=== PATIENT | female | born 1960 | race Caucasian/White ===

== ENCOUNTER 2019-12-07 08:45 | Outpatient (RCR) | payer MEDICAID, SELFPAY ==
[2019-11-16 11:02] VITALS: BP 140/86; PULSE 110; RESP 18; TEMP 36.8; BMI 25.6
--- NOTE | 2019-11-16 15:11 | HP.PCM_ITS ---
(1) Pressure ulcer of right ankle, stage 4 Status: Chronic Current Visit: Yes Code(s): L89.514 - Pressure ulcer of right ankle, stage 4 (2) Pressure ulcer of left ankle, stage 2 Status: Chronic Current Visit: Yes Code(s): L89.522 - Pressure ulcer of left ankle, stage 2 (3) Mental disability Status: Chronic Current Visit: No Code(s): F79 - Unspecified intellectual disabilities (4) Behavioral disorder Status: Chronic Current Visit: No (5) Hypertension Status: Chronic Current Visit: No Code(s): I10 - Essential (primary) hypertension (6) Eczema Status: Chronic Current Visit: No Code(s): L30.9 - Dermatitis, unspecified History of Present Illness Date of Service: 11/16/19 Chief Complaint: pressure ulcers of both ankles History of Wound: Patient is a pleasant 59-year-old female who [facility] for initial evaluation of bilateral pressure ulcers to ankles. She presents today with a staff member, Calvin, from [facility]. Patient has a mental disability, and is unable to provide a self history. Per staff member, ankle ulcers have been present for approximately 1 month. She believes they may have occurred while patient was admitted to a mental hospital for behavioral issues. During behavioral spells patient frequently crosses ankles and rocks back and forth. She is also a frequent roller picker, and often pulls off her own toenails and fingernails. Patient's other PMH includes hypertension, eczema, and a history of previous pressure ulcers to ankles. Staff at [facility] have been applying Silvadene to patient's left ankle ulcer, and an alginate to patient's right ankle ulcer. These dressings are changed daily. They are typically covered with gauze or Band-Aid. The patient/staff denies any fever, chills, nausea, vomiting, or diarrhea. Denies any signs of infection, including increasing pain, redness, swelling, or purulent/foul-smelling drainage from affected area. Past Medical History Past Medical History: Chronic Problems Pressure ulcer of right ankle, stage 4 (Chronic) Pressure ulcer of left ankle, stage 2 (Chronic) Mental disability (Chronic) Behavioral disorder (Chronic) Hypertension (Chronic) Eczema (Chronic) Allergies/Adverse Reactions: Allergies No Known Allergies Allergy (Verified 11/16/19 11:11) Home Medications: Ambulatory Orders Medication Instructions Recorded Atenolol 25 mg PO DAILY 11/16/19 Cetirizine HCl [All Day Allergy] 10 mg PO DAILY 11/16/19 Clozapine [Clozapine Odt] 150 mg PO BID 11/16/19 Famotidine [Pepcid] 40 mg PO DAILY 11/16/19 Lactulose [Constulose] 60 ml PO BID 11/16/19 Levothyroxine [Synthroid] 75 mcg PO DAILY 11/16/19 Magnesium Citrate [Citrate of 296 ml PO QWEEK 11/16/19 Magnesia] Sennosides/Docusate Sodium [Senna 1 ea PO BID 11/16/19 Plus 8.6-50 mg Softgel] Smoking Status: Never smoker Review of Systems Constitutional: Denies: Chills, Fever, Weight Change Eyes: Denies: Pain, Vision Change HEENT: Denies: Difficulty Hearing, Difficulty Swallowing, Sinus Congestion Cardiovascular: Denies: Chest Pain, Palpitations Respiratory: Denies: Cough, Shortness of Breath, Wheezing Gastrointestinal: Denies: Abdominal Pain, Diarrhea, Nausea, Vomiting Genitourinary: Denies: Dysuria, Hematuria Musculoskeletal: Denies: Joint Pain, Joint stiffness, Joint swelling, Joint Tenderness, Leg Pain Skin: Reports: Wounds - Bilateral ankle ulcers, - - History of eczema Psychiatric: Reports: - - Mental disability, behavioral disorders Endocrine: Denies: Heat/ Cold Intolerance, Polydipsia, Polyuria Hematologic/ Lymphatic: Denies: Easy Bruising, Easy Bleeding - Physical Exam Vital Signs Temp Pulse Resp BP 98.2 F 110 H 18 140/86 H 11/16/19 11:02 11/16/19 11:02 11/16/19 11:02 11/16/19 11:02 General: Alert, Cooperative, No apparent distress, Well nourished HEENT: Atraumatic, EOMI, Normocephalic Oral: Moist Mucosa Neck: Supple, No JVD, Trachea Midline Lungs: Clear to auscultation, Normal air movement, No rhonchi, No wheeze, No rales Cardiovascular: Regular rate, Regular Rhythm Abdomen: Bowel Sounds Present, Soft, Non Tender Extremities: No clubbing, No cyanosis, Capillary Refill Less than 3 Seconds, Edema - Mild periwound edema of right ankle. No edema of left ankle or lower ex tremity., Peripheral Pulses Normal Skin: Ulcer/ Wound - Stage IV pressure ulcer to right lateral ankle, with mild surrounding erythema and swelling. No purulent/foul-smelling drainage, or warmth to touch. Tendon visible. Does not probe to bone. Stage II pressure ulcer to left ankle, with no surrounding erythema, swelling, or warmth, and no drainage. Does not probe to bone Wound Measurements and Assessment WC - Nurse 1 - General Ulcer Measurement Start: 11/16/19 11:02 Freq: Status: Active Protocol: Activity Type Activity Date Activity User E-Sign Co-Sign Detail Recorded Client Recorded Date Recorded By Document 11/16/19 11:02 RB [id number] 11/16/19 11:10 RB 11/16/19 11:02 Wound Center Nurse 1 [Ulcer Assessment] 2. L lateral ankle -Combined with other wound No -Current Size (cm) - Length 0.3 -Current Size (cm) - Width 0.3 -Current Size (cm) - Depth 0.2 -Total Square Cm 0.09 -Photo Taken Yes -Tunneling No -Undermining/Tunneling No -Circular Undermining No -Exudate Amt Small -Exudate Type Serosanguineous -Wound Margin Thickened & Rolled Under -Granulation Amt Medium (34-66%) -Granulation Quality Dunn -Slough/Fibrin Yes -Necrosis Amt Small (1-33%) -Necrotic Tissue Type Adherent Slough -Structure Exposed N/A -Texture (Abiola-wound Skin Appearance) Assessed, Scarring -Color (Abiola-wound Skin Appearance) Assessed -Temperature (Abiola-wound Skin No Abnormality Appearance) (Pt Warm) -Tenderness on Palpation (Abiola-wound No Skin Appearance) -Ulcer Cleansing Wound Cleanser -Foul Odor after Cleansing No -Anesthetic Used 4% Lidocaine Solution 1. R lateral ankle -Combined with other wound No -Current Size (cm) - Length 0.8 -Current Size (cm) - Width 0.9 -Current Size (cm) - Depth 0.4 -Total Square Cm 0.72 -Photo Taken Yes -Tunneling No -Undermining/Tunneling No -Circular Undermining No -Exudate Amt Small -Exudate Type Serosanguineous -Wound Margin Thickened & Rolled Under -Granulation Amt Medium (34-66%) -Granulation Quality Dunn -Slough/Fibrin Yes -Necrosis Amt Small (1-33%) -Necrotic Tissue Type Adherent Slough -Structure Exposed N/A -Texture (Abiola-wound Skin Appearance) Assessed, Localized Edema -Moisture (Abiola-wound Skin Appearance Assessed ) -Color (Abiola-wound Skin Appearance) Erythema -Temperature (Abiola-wound Skin No Abnormality Appearance) (Pt Warm) -Tenderness on Palpation (Abiola-wound No Skin Appearance) -Ulcer Cleansing Wound Cleanser -Foul Odor after Cleansing No -Anesthetic Used 5% Lidocaine Gel [Edema Assessment] -Lower Limb Edema Present Yes -Right Calf (cm) 34.2 -Right Ankle (cm) 21 -Left Calf (cm) 34 -Left Ankle (cm) 21 WC - Nurse 2 - General Ulcer CM Notes Start: 11/16/19 11:02 Freq: Status: Active Protocol: Activity Type Activity Date Activity User E-Sign Co-Sign Detail Recorded Client Recorded Date Recorded By Document 11/16/19 11:48 DV [id number] 11/16/19 11:59 DV 11/16/19 11:48 Wound Center Nurse 2 [Procedure/Treatment] 2. L lateral ankle -Time 11:54 -Correct Patient Yes -Correct Side, Site, Position Yes -Correct Procedure Yes -Procedure Performed Yes -Type of Procedure Debridement -Clinical Debridement Subcutaneous -Post Debridement Size (cm) - Length 0.3 -Post Debridement Size (cm) - Width 0.4 -Post Debridement Size (cm) - Depth 0.3 -Total Square Cm 0.12 -Wound/Ulcer Outcome Not Healed -Ulcer Cleansing Rinsed/ Irrigated with Saline -Foul Odor after Cleansing No -Bioengineered Tissue No -Bleeding Controlled with Pressure -Offloading No -Treatment Response Procedure Tolerated Well 1. R lateral ankle -Time 11:52 -Correct Patient Yes -Correct Side, Site, Position Yes -Correct Procedure Yes -Procedure Performed Yes -Type of Procedure Debridement -Clinical Debridement Subcutaneous -Post Debridement Size (cm) - Length 1.1 -Post Debridement Size (cm) - Width 1.0 -Post Debridement Size (cm) - Depth 0.6 -Total Square Cm 1.10 -Wound/Ulcer Outcome Not Healed -Ulcer Cleansing Rinsed/ Irrigated with Saline -Foul Odor after Cleansing No -Bioengineered Tissue No -Bleeding Controlled with Pressure -Offloading No -Treatment Response Procedure Tolerated Well [See Physician Procedure note for Specifics] Pain Scale: 0-10 Numeric [Pain] -Is Patient Pain Free? Yes Musculoskeletal: Tenderness - On palpation/manipulation of bilateral ankle ulcers Psych/Mental Status: Normal Affect Debridement Note Post-Debridement Measurements/Treatment WC - Nurse 2 - General Ulcer CM Notes Start: 11/16/19 11:02 Freq: Status: Active Protocol: Activity Type Activity Date Activity User E-Sign Co-Sign Detail Recorded Client Recorded Date Recorded By Document 11/16/19 11:48 DV [id number] 11/16/19 11:59 DV 11/16/19 11:48 Wound Center Nurse 2 2. L lateral ankle -Time 11:54 -Correct Patient Yes -Correct Side, Site, Position Yes -Correct Procedure Yes -Procedure Performed Yes -Type of Procedure Debridement -Clinical Debridement Subcutaneous -Post Debridement Size (cm) - Length 0.3 -Post Debridement Size (cm) - Width 0.4 -Post Debridement Size (cm) - Depth 0.3 -Total Square Cm 0.12 -Wound/Ulcer Outcome Not Healed -Ulcer Cleansing Rinsed/ Irrigated with Saline -Foul Odor after Cleansing No -Bioengineered Tissue No -Bleeding Controlled with Pressure -Offloading No -Treatment Response Procedure Tolerated Well 1. R lateral ankle -Time 11:52 -Correct Patient Yes -Correct Side, Site, Position Yes -Correct Procedure Yes -Procedure Performed Yes -Type of Procedure Debridement -Clinical Debridement Subcutaneous -Post Debridement Size (cm) - Length 1.1 -Post Debridement Size (cm) - Width 1.0 -Post Debridement Size (cm) - Depth 0.6 -Total Square Cm 1.10 -Wound/Ulcer Outcome Not Healed -Ulcer Cleansing Rinsed/ Irrigated with Saline -Foul Odor after Cleansing No -Bioengineered Tissue No -Bleeding Controlled with Pressure -Offloading No -Treatment Response Procedure Tolerated Well Pain Scale: 0-10 Numeric Is Patient Pain Free? Yes Wound debrided: Right lateral ankle Laterality: Right Wound Grade/Stage: Stage IV Type of Debridement: Excisional debridement Anesthesia Used: 5% Lidocaine Gel Depth: in the subcutaneous layer Percentage of wound debrided: 100 Instrument Used: 5mm curette Tissue Removed: Slough and devitalized tissue Severity: Fat Layer Exposed Amount of bleeding with debridement: Mild Bleeding Controlled with: Compression and gauze Patient tolerated procedure well - Additional Wound Wound debrided: Left lateral ankle ulcer Laterality: Left Wound Grade/Stage: Stage II Type of Debridement: Excisional debridement Anesthesia Used: 5% Lidocaine Gel Depth: Down to and including healthy tissue Percentage of wound debrided: 100 Instrument Used: 3mm curette, - - 1 mm curette Tissue Removed: Slough in devitalized tissue Severity: Fat Layer Exposed Amount of bleeding with debridement: Mild Bleeding Controlled with: Compression and gauze Patient tolerated procedure: Patient tolerated procedure well Assessment/Plan Active Problems Pressure ulcer of right ankle, stage 4 (Chronic) Pressure ulcer of left ankle, stage 2 (Chronic) Assessment: Pressure ulcer of right ankle, stage IV. Pressure ulcer of left ankle, stage II Plan: Debridement performed today in clinic. Hydrogel applied to left ankle ulceration. Aquacel Ag applied to right ankle ulceration. At home wound-care instructions: Daily dressing changes. May remove dressings to shower. Avoid picking at wounds, and keep covered at all times, aside from showering. Compression: Patient has Tubigrip's at home, which may be used to keep wound areas covered. However, patient has no significant edema or evident vascular compromise, so more aggressive compression not needed today. Off-loading: Keep feet elevated when seated, at or above waist level. Avoid prolonged dangling of legs, or prolonged standing. Diet: Patient encouraged to increase protein and vitamin C intake while taking caution to avoid high carbohydrate and/or sugar intake. Per staff member, patient's facility has [facility] available. Recommended implementing this as directed for promotion of wound healing. Labs/cultures/imaging: Cultures ordered and collected today from right ankle ulcer. Per staff, lab work is collected monthly at patient's living facility. We requested that these records be faxed to the wound healing center. Vascular studies deferred for the time being. Follow-up: Return to clinic in 1 week for re-evaluation. Return sooner or report to the emergency room should symptoms worsen, or new symptoms arise. Note: [employer] speech recognition mini shifter software was used to create portions of this document. Sound-alike and misspelled words, as well as other mini shifter errors may be contained in the documentation. Code Visit Office Visits / Consults: [id number] OV L4 New [id number]: [id number] Araseli subq tissue 20 sq cm/<
[2019-11-23 08:32] VITALS: BP 136/78; PULSE 108; RESP 16; TEMP 36.4; BMI 25.6
--- NOTE | 2019-11-23 11:37 | PN.PCM_ITS ---
(1) Pressure ulcer of right ankle, stage 4 Status: Chronic Current Visit: Yes Code(s): L89.514 - Pressure ulcer of right ankle, stage 4 (2) Pressure ulcer of left ankle, stage 2 Status: Resolved Current Visit: Yes Code(s): L89.522 - Pressure ulcer of left ankle, stage 2 (3) Mental disability Status: Chronic Current Visit: No Code(s): F79 - Unspecified intellectual disabilities (4) Behavioral disorder Status: Chronic Current Visit: No (5) Hypertension Status: Chronic Current Visit: No Code(s): I10 - Essential (primary) hypertension (6) Eczema Status: Chronic Current Visit: No Code(s): L30.9 - Dermatitis, unspecified Type of Wound Date of Service: 11/23/19 Chief Complaint: pressure ulcers of both ankles History of Wound: Patient is a pleasant 59-year-old female who [facility] for initial evaluation of bilateral pressure ulcers to ankles. She presents today with a staff member, Calvin, from [facility] in [facility]. Patient has a mental disability, and is unable to provide a self history. Per staff member, ankle ulcers have been present for approximately 1 month. She believes they may have occurred while patient was admitted to a mental hospital for behavioral issues. During behavioral spells patient frequently crosses ankles and rocks back and forth. She is also a frequent nut picker, and often pulls off her own toenails and fingernails. Patient's other PMH includes hypertension, eczema, and a history of previous pressure ulcers to ankles. Staff at [facility] have been applying Silvadene to patient's left ankle ulcer, and an alginate to patient's right ankle ulcer. These dressings are changed daily. They are typically covered with gauze or Band-Aid. The patient/staff denies any fever, chills, nausea, vomiting, or diarrhea. Denies any signs of infection, including increasing pain, redness, swelling, or purulent/foul-smelling drainage from affected area. Progress of Wound: Improvement in both pressure ulcers today. Left lateral ankle is healed. Right lateral ankle is improved in appearance and size. Patient staff was unable to acquire hydrogel following last week's visit, so I had directed them to continue Silvadene to left ankle instead. They have been compliant with the use of Silvadene to left lateral ankle and Alba to right lateral ankle. Patient was also started on doxycycline for positive wound culture results indicating MRSA and Corynebacterium striatum. Staff and patient report doing well, no new concerns today. The patient/staff denies any fever, chills, nausea, vomiting, or diarrhea. Denies any signs of infection, including increasing pain, redness, swelling, or drainage from affected area. - Physical Exam Vital Signs Temp Pulse Resp BP 97.6 F L 108 H 16 136/78 H 11/23/19 08:32 11/23/19 08:32 11/23/19 08:32 11/23/19 08:32 General: Alert, Cooperative, No apparent distress HEENT: Atraumatic, EOMI, Normocephalic Oral: Moist Mucosa Neck: Supple, Trachea Midline Lungs: Normal air movement Cardiovascular: Regular rate Extremities: No clubbing, No cyanosis, No edema, Capillary Refill Less than 3 Seconds, Peripheral Pulses Normal Skin: Ulcer/ Wound - Left lateral ankle ulcer healed. Stage IV pressure ulcer to right lateral ankle, with mild abiola-ulcer erythema. Swelling has resolved and right ankle. No purulent/foul-smelling drainage, or warmth to touch. Tendon visible, does not probe to bone. Wound Measurements and Assessment WC - Nurse 1 - General Ulcer Measurement Start: 11/16/19 11:02 Freq: Status: Active Protocol: Activity Type Activity Date Activity User E-Sign Co-Sign Detail Recorded Client Recorded Date Recorded By Document 11/23/19 08:32 [facility] [id number] 11/23/19 08:36 [facility] 11/23/19 08:32 Wound Center Nurse 1 [Ulcer Assessment] 2. L lateral ankle -Combined with other wound No -Current Size (cm) - Length 0.1 -Current Size (cm) - Width 0.1 -Current Size (cm) - Depth 0.1 -Total Square Cm 0.01 -Photo Taken No -Epithelialization Large 67-100% -Tunneling No -Undermining/Tunneling No -Circular Undermining No -Exudate Amt None Present -Texture (Abiola-wound Skin Appearance) Assessed,Rash -Moisture (Abiola-wound Skin Appearance Assessed,Dry/ ) Scaly -Color (Abiola-wound Skin Appearance) Assessed, Erythema -Temperature (Abiola-wound Skin No Abnormality Appearance) (Pt Warm) -Tenderness on Palpation (Abiola-wound No Skin Appearance) -Ulcer Cleansing Rinsed/ Irrigated with Saline -Foul Odor after Cleansing No -Anesthetic Used 5% Lidocaine Gel 1. R lateral ankle -Combined with other wound No -Current Size (cm) - Length 0.6 -Current Size (cm) - Width 0.4 -Current Size (cm) - Depth 0.5 -Total Square Cm 0.24 -Photo Taken No -Epithelialization None Present -Tunneling No -Undermining/Tunneling No -Circular Undermining No -Exudate Amt Small -Exudate Type Serous -Wound Margin Distinct, Outline Attached -Granulation Amt Small (1-33%) -Granulation Quality [place] -Slough/Fibrin Yes -Necrosis Amt Large (67-100%) -Necrotic Tissue Type Adherent Slough -Texture (Abiola-wound Skin Appearance) Assessed,Callus ,Scarring -Moisture (Abiola-wound Skin Appearance Assessed,Dry/ ) Scaly -Color (Abiola-wound Skin Appearance) Assessed -Temperature (Abiola-wound Skin No Abnormality Appearance) (Pt Warm) -Tenderness on Palpation (Abiola-wound Yes Skin Appearance) -Ulcer Cleansing Rinsed/ Irrigated with Saline -Foul Odor after Cleansing No -Anesthetic Used 5% Lidocaine Gel WC - Nurse 2 - General Ulcer CM Notes Start: 11/16/19 11:02 Freq: Status: Active Protocol: Activity Type Activity Date Activity User E-Sign Co-Sign Detail Recorded Client Recorded Date Recorded By Document 11/23/19 08:55 DV [id number] 11/23/19 09:11 DV 11/23/19 08:55 Wound Center Nurse 2 [Procedure/Treatment] 2. L lateral ankle -Time 08:56 -Correct Patient Yes -Correct Side, Site, Position Yes -Correct Procedure No -Procedure Performed No -Post Debridement Size (cm) - Length 0 -Post Debridement Size (cm) - Width 0 -Post Debridement Size (cm) - Depth 0 -Total Square Cm 0 -Wound/Ulcer Outcome Healed- Epithelialized -Bleeding Controlled with Pressure -Offloading No 1. R lateral ankle -Time 08:56 -Correct Patient Yes -Correct Side, Site, Position Yes -Correct Procedure Yes -Procedure Performed Yes -Type of Procedure Debridement -Clinical Debridement Subcutaneous -Post Debridement Size (cm) - Length 1.0 -Post Debridement Size (cm) - Width 0.5 -Post Debridement Size (cm) - Depth 0.5 -Total Square Cm 0.50 -Wound/Ulcer Outcome Not Healed -Ulcer Cleansing Rinsed/ Irrigated with Saline -Foul Odor after Cleansing No -Bioengineered Tissue No -Bleeding Controlled with Pressure -Offloading No -Treatment Response Procedure Tolerated Well [See Physician Procedure note for Specifics] Pain Scale: 0-10 Numeric [Pain] -Is Patient Pain Free? Yes Musculoskeletal: Tenderness - Mild tenderness on manipulation/debridement of right ankle ulcer. Neurological: Unsteady Gait Psych/Mental Status: Normal Affect, Appropriate Debridement Note Post-Debridement Measurements/Treatment WC - Nurse 2 - General Ulcer CM Notes Start: 11/16/19 11:02 Freq: Status: Active Protocol: Activity Type Activity Date Activity User E-Sign Co-Sign Detail Recorded Client Recorded Date Recorded By Document 11/16/19 11:48 DV [id number] 11/16/19 11:59 DV Document 11/23/19 08:55 DV [id number] 11/23/19 09:11 DV 11/16/19 11/23/19 11:48 08:55 Wound Center Nurse 2 2. L lateral ankle -Time 11:54 08:56 -Correct Patient Yes Yes -Correct Side, Site, Position Yes Yes -Correct Procedure Yes No -Procedure Performed Yes No -Type of Procedure Debridement -Clinical Debridement Subcutaneous -Post Debridement Size (cm) - Length 0.3 0 -Post Debridement Size (cm) - Width 0.4 0 -Post Debridement Size (cm) - Depth 0.3 0 -Total Square Cm 0.12 0 -Wound/Ulcer Outcome Not Healed Healed- Epithelialized -Ulcer Cleansing Rinsed/ Irrigated with Saline -Foul Odor after Cleansing No -Bioengineered Tissue No -Bleeding Controlled with Pressure Pressure -Offloading No No -Treatment Response Procedure Tolerated Well 1. R lateral ankle -Time 11:52 08:56 -Correct Patient Yes Yes -Correct Side, Site, Position Yes Yes -Correct Procedure Yes Yes -Procedure Performed Yes Yes -Type of Procedure Debridement Debridement -Clinical Debridement Subcutaneous Subcutaneous -Post Debridement Size (cm) - Length 1.1 1.0 -Post Debridement Size (cm) - Width 1.0 0.5 -Post Debridement Size (cm) - Depth 0.6 0.5 -Total Square Cm 1.10 0.50 -Wound/Ulcer Outcome Not Healed Not Healed -Ulcer Cleansing Rinsed/ Rinsed/ Irrigated with Irrigated with Saline Saline -Foul Odor after Cleansing No No -Bioengineered Tissue No No -Bleeding Controlled with Pressure Pressure -Offloading No No -Treatment Response Procedure Procedure Tolerated Well Tolerated Well Pain Scale: 0-10 Numeric Is Patient Pain Free? Yes Yes Wound debrided: Right lateral ankle Laterality: Right Wound Grade/Stage: Stage IV Type of Debridement: Excisional debridement Anesthesia Used: 5% Lidocaine Gel Depth: in the subcutaneous layer Percentage of wound debrided: 100 Instrument Used: 5mm curette Tissue Removed: Slough and devitalized tissue Severity: Fat Layer Exposed Amount of bleeding with debridement: Mild Bleeding Controlled with: Compression and gauze Patient tolerated procedure well Assessment/Plan Active Problems Pressure ulcer of right ankle, stage 4 (Chronic) Assessment: Pressure ulcer of right ankle, stage IV. Pressure ulcer of left ankle, stage II Plan: Debridement performed today in clinic. Moistened Alba applied to right ankle ulceration. Left lateral ankle ulcer is healed. At home wound-care instructions: Daily dressing changes of Alba to right lateral ankle. May keep left lateral ankle covered with gauze or Band-Aid to prevent manipulation of healed wound by patient. May remove dressings to shower. Avoid picking at wounds, and keep covered at all times, aside from showering. Compression: Patient has Tubigrip's at home, which may be used to keep wound areas covered. However, patient has no significant edema or evident vascular compromise, so more aggressive compression not needed today. Off-loading: Keep feet elevated when seated, at or above waist level. Avoid prolonged dangling of legs, or prolonged standing. Diet: Patient encouraged to increase protein and vitamin C intake while taking caution to avoid high carbohydrate and/or sugar intake. Per staff member, patient's facility has Sal[facility] available. Recommended implementing this as directed for promotion of wound healing. Labs/cultures/imaging: Cultures reviewed?continue doxycycline until finished. Lab work from patient's living facility from 10/12/2019 reviewed. Vascular studies deferred for the time being. Follow-up: Return to clinic in 1 week for re-evaluation. Return sooner or report to the emergency room should symptoms worsen, or new symptoms arise. Note: [employer] speech recognition automotive parts salesperson software was used to create portions of this document. Sound-alike and misspelled words, as well as other automotive parts salesperson errors may be contained in the documentation. Code Visit 111xxx-113xx: 24243 Araseli subq tissue 20 sq cm/<
[2019-12-07 09:15] VITALS: BP 119/99; PULSE 105; RESP 18; TEMP 35.9; BMI 25.6
--- NOTE | 2019-12-07 11:06 | PCM.WC.PN ---
(1) Pressure ulcer of right ankle, stage 4 Status: Chronic Current Visit: Yes Code(s): L89.514 - Pressure ulcer of right ankle, stage 4 (2) Pressure ulcer of left ankle, stage 2 Status: Resolved Current Visit: No Code(s): L89.522 - Pressure ulcer of left ankle, stage 2 (3) Mental disability Status: Chronic Current Visit: No Code(s): F79 - Unspecified intellectual disabilities (4) Behavioral disorder Status: Chronic Current Visit: No (5) Hypertension Status: Chronic Current Visit: No Code(s): I10 - Essential (primary) hypertension (6) Eczema Status: Chronic Current Visit: No Code(s): L30.9 - Dermatitis, unspecified Type of Wound Date of Service: 12/07/19 Chief Complaint: pressure ulcers of both ankles History of Wound: Patient is a pleasant 59-year-old female who [facility] for initial evaluation of bilateral pressure ulcers to ankles. She presents today with a staff member, Calvin, from [facility] in [facility]. Patient has a mental disability, and is unable to provide a self history. Per staff member, ankle ulcers have been present for approximately 1 month. She believes they may have occurred while patient was admitted to a mental hospital for behavioral issues. During behavioral spells patient frequently crosses ankles and rocks back and forth. She is also a frequent product picker, and often pulls off her own toenails and fingernails. Patient's other PMH includes hypertension, eczema, and a history of previous pressure ulcers to ankles. Staff at [facility] have been applying Silvadene to patient's left ankle ulcer, and an alginate to patient's right ankle ulcer. These dressings are changed daily. They are typically covered with gauze or Band-Aid. The patient/staff denies any fever, chills, nausea, vomiting, or diarrhea. Denies any signs of infection, including increasing pain, redness, swelling, or purulent/foul-smelling drainage from affected area. Progress of Wound: Left lateral ankle remains healed. Right lateral ankle is stable. Patient staff has been compliant with the use of moistened Alba dressing daily to right lateral ankle ulcer. Patient staff is requesting that we change dressing changes to MWF, due to availability of facilities wound nurse. Patient was also started on doxycycline for positive wound culture results indicating MRSA and Corynebacterium striatum--her antibiotics have been completed. Staff and patient report doing well, no new concerns today. The patient/staff denies any fever, chills, nausea, vomiting, or diarrhea. Denies any signs of infection, including increasing pain, redness, swelling, or drainage from affected area. The patient does have a diffuse rash of her bilateral upper and lower extremities and trunk. Staff reports this has been evaluated, and is currently attributed to her psych medications. - Physical Exam Vital Signs Temp Pulse Resp BP 96.7 F L 105 H 18 119/99 H 12/07/19 09:15 12/07/19 09:15 12/07/19 09:15 12/07/19 09:15 General: Alert, Cooperative, No apparent distress HEENT: Atraumatic, Normocephalic Oral: Moist Mucosa Neck: Supple, Trachea Midline Lungs: Normal air movement Cardiovascular: Regular rate Extremities: No clubbing, No cyanosis, No edema, Capillary Refill Less than 3 Seconds, Peripheral Pulses Normal, - - Patient has removed fingernails of left first, third, and fourth fingers. No erythema, swelling, open wounds, or purulent drainage from digits. Skin: Ulcer/ Wound - Pressure ulcer to right lateral ankle, with mild abiola-ulcer erythema. Swelling has resolved and right ankle. No purulent/foul-smelling drainage, or warmth to touch. Tendon no longer visible, does not probe to bone., Rash Present - Maculopapular rash present on bilateral upper and lower extremities and trunk. Wound Measurements and Assessment WC - Nurse 1 - General Ulcer Measurement Start: 11/16/19 11:02 Freq: Status: Active Protocol: Activity Type Activity Date Activity User E-Sign Co-Sign Detail Recorded Client Recorded Date Recorded By Document 12/07/19 09:15 RB [id number] 12/07/19 09:17 RB 12/07/19 09:15 Wound Center Nurse 1 [Ulcer Assessment] 1. R lateral ankle -Combined with other wound No -Current Size (cm) - Length 0.5 -Current Size (cm) - Width 0.4 -Current Size (cm) - Depth 0.3 -Total Square Cm 0.20 -Tunneling No -Undermining/Tunneling No -Circular Undermining No -Exudate Amt Small -Exudate Type Serosanguineous -Wound Margin Thickened & Rolled Under -Granulation Amt Medium (34-66%) -Granulation Quality [place] -Slough/Fibrin Yes -Necrosis Amt Small (1-33%) -Necrotic Tissue Type Adherent Slough -Structure Exposed N/A -Texture (Abiola-wound Skin Appearance) Assessed -Moisture (Abiola-wound Skin Appearance Assessed ) -Color (Abiola-wound Skin Appearance) Assessed -Temperature (Abiola-wound Skin No Abnormality Appearance) (Pt Warm) -Tenderness on Palpation (Abiola-wound No Skin Appearance) -Ulcer Cleansing Wound Cleanser -Foul Odor after Cleansing No -Anesthetic Used 5% Lidocaine Gel WC - Nurse 2 - General Ulcer CM Notes Start: 11/16/19 11:02 Freq: Status: Active Protocol: Activity Type Activity Date Activity User E-Sign Co-Sign Detail Recorded Client Recorded Date Recorded By Document 12/06/19 11:10 DV [id number] 12/07/19 09:55 DV 12/06/19 11:10 Wound Center Nurse 2 [Procedure/Treatment] -Time 09:54 -Correct Patient Yes -Correct Side, Site, Position Yes -Correct Procedure Yes -Procedure Performed Yes -Type of Procedure Debridement -Clinical Debridement Subcutaneous -Post Debridement Size (cm) - Length 0.7 -Post Debridement Size (cm) - Width 0.5 -Post Debridement Size (cm) - Depth 0.6 -Total Square Cm 0.35 -Wound/Ulcer Outcome Not Healed -Ulcer Cleansing Rinsed/ Irrigated with Saline -Foul Odor after Cleansing No -Bioengineered Tissue No -Bleeding Controlled with Pressure -Offloading No -Treatment Response Procedure Tolerated Well [See Physician Procedure note for Specifics] Pain Scale: 0-10 Numeric [Pain] -Is Patient Pain Free? Yes Musculoskeletal: No Tenderness to Palpation of Joints or Extremities Psych/Mental Status: Normal Affect, Appropriate Debridement Note Post-Debridement Measurements/Treatment - Nurse 2 - General Ulcer CM Notes Start: 11/16/19 11:02 Freq: Status: Active Protocol: Activity Type Activity Date Activity User E-Sign Co-Sign Detail Recorded Client Recorded Date Recorded By Document 11/16/19 11:48 DV [id number] 11/16/19 11:59 DV Document 11/23/19 08:55 DV [id number] 11/23/19 09:11 DV Document 12/06/19 11:10 DV [id number] 12/07/19 09:55 DV 11/16/19 11/23/19 12/06/19 11:48 08:55 11:10 Wound Center Nurse 2 2. L lateral ankle -Time 11:54 08:56 -Correct Patient Yes Yes -Correct Side, Site, Position Yes Yes -Correct Procedure Yes No -Procedure Performed Yes No -Type of Procedure Debridement -Clinical Debridement Subcutaneous -Post Debridement Size (cm) - Length 0.3 0 -Post Debridement Size (cm) - Width 0.4 0 -Post Debridement Size (cm) - Depth 0.3 0 -Total Square Cm 0.12 0 -Wound/Ulcer Outcome Not Healed Healed- Epithelialized -Ulcer Cleansing Rinsed/ Irrigated with Saline -Foul Odor after Cleansing No -Bioengineered Tissue No -Bleeding Controlled with Pressure Pressure -Offloading No No -Treatment Response Procedure Tolerated Well 1. R lateral ankle -Time 11:52 08:56 09:54 -Correct Patient Yes Yes Yes -Correct Side, Site, Position Yes Yes Yes -Correct Procedure Yes Yes Yes -Procedure Performed Yes Yes Yes -Type of Procedure Debridement Debridement Debridement -Clinical Debridement Subcutaneous Subcutaneous Subcutaneous -Post Debridement Size (cm) - Length 1.1 1.0 0.7 -Post Debridement Size (cm) - Width 1.0 0.5 0.5 -Post Debridement Size (cm) - Depth 0.6 0.5 0.6 -Total Square Cm 1.10 0.50 0.35 -Wound/Ulcer Outcome Not Healed Not Healed Not Healed -Ulcer Cleansing Rinsed/ Rinsed/ Rinsed/ Irrigated with Irrigated with Irrigated with Saline Saline Saline -Foul Odor after Cleansing No No No -Bioengineered Tissue No No No -Bleeding Controlled with Pressure Pressure Pressure -Offloading No No No -Treatment Response Procedure Procedure Procedure Tolerated Well Tolerated Well Tolerated Well Pain Scale: 0-10 Numeric Is Patient Pain Free? Yes Yes Yes Wound debrided: Right lateral ankle Laterality: Right Type of Debridement: Excisional debridement Anesthesia Used: 5% Lidocaine Gel Depth: in the subcutaneous layer Percentage of wound debrided: 100 Instrument Used: 5mm curette Tissue Removed: Slough and devitalized tissue Severity: Fat Layer Exposed Amount of bleeding with debridement: Mild Bleeding Controlled with: Compression and gauze Patient tolerated procedure well Assessment/Plan Active Problems Pressure ulcer of right ankle, stage 4 (Chronic) Assessment: Pressure ulcer of right ankle, stage IV. Pressure ulcer of left ankle-- healed Plan: Debridement performed today in clinic. Hydrogel and Fibracol applied to wound bed. Covered with Adaptic, gauze and tape. At home wound-care instructions: MWF dressing changes of hydrogel + Fibracol to right lateral ankle. Cover with Adaptic, gauze, and tape. May keep left lateral ankle covered with gauze or Band-Aid to prevent manipulation of healed wound by patient. May remove dressings to shower and replace with clean dressings. Avoid picking at wounds, and keep covered at all times, aside from showering. Compression: Patient has Tubigrip's at home, which may be used to keep wound areas covered. However, patient has no significant edema or evident vascular compromise, so more aggressive compression not needed today. Off-loading: Keep feet elevated when seated, at or above waist level. Avoid prolonged dangling of legs, or prolonged standing. Diet: Patient encouraged to increase protein and vitamin C intake while taking caution to avoid high carbohydrate and/or sugar intake. Per staff member, patient's facility has [facility] available. Recommended implementing this as directed for promotion of wound healing. Labs/cultures/imaging: Cultures reviewed?doxycycline completed. Lab work from patient's living facility from 10/12/2019 reviewed. Vascular studies deferred for the time being. Follow-up: Return to clinic in 1 week for re-evaluation. Return sooner or report to the emergency room should symptoms worsen, or new symptoms arise. Note: [employer] speech recognition phlebotomist supervisor/instructor software was used to create portions of this document. Sound-alike and misspelled words, as well as other phlebotomist supervisor/instructor errors may be contained in the documentation. Code Visit 111xxx-113xx: 00645 Araseli subq tissue 20 sq cm/<
== END 2019-12-07 23:59 ==
LOC: WC 08:45
PROVIDERS: Referring Provider Nurse Practitioner Family; Visit Provider Nurse Practitioner Family
DX: L89.514 Pressure ulcer of right ankle, stage 4 (principal); L89.522 Pressure ulcer of left ankle, stage 2; F79 Unspecified intellectual disabilities; I10 Essential (primary) hypertension; L30.9 Dermatitis, unspecified; Z79.899 Other long term (current) drug therapy
CPT/HCPCS: 11042; 87070; 87075; 87077; 87186; 87205; 99204; G0463

== ENCOUNTER 2019-12-28 08:45 | Outpatient (RCR) | payer MEDICAID, SELFPAY ==
[2019-12-08 01:08] VITALS: BP 119/99; PULSE 105; RESP 18; TEMP 35.9
[2019-12-21 08:53] VITALS: BP 130/78; PULSE 98; RESP 18; TEMP 36.9; BMI 25.6
--- NOTE | 2019-12-21 13:37 | PCM.WC.PN ---
(1) Pressure ulcer of right ankle, stage 4 Status: Chronic Current Visit: Yes Code(s): L89.514 - Pressure ulcer of right ankle, stage 4 Type of Wound Date of Service: 12/21/19 Chief Complaint: pressure ulcers of both ankles History of Wound: Patient is a pleasant 59-year-old female who [facility] for initial evaluation of bilateral pressure ulcers to ankles. She presents today with a staff member, Calvin, from [facility] in [facility]. Patient has a mental disability, and is unable to provide a self history. Per staff member, ankle ulcers have been present for approximately 1 month. She believes they may have occurred while patient was admitted to a mental hospital for behavioral issues. During behavioral spells patient frequently crosses ankles and rocks back and forth. She is also a frequent turkey picker, and often pulls off her own toenails and fingernails. Patient's other PMH includes hypertension, eczema, and a history of previous pressure ulcers to ankles. Staff at [facility] have been applying Silvadene to patient's left ankle ulcer, and an alginate to patient's right ankle ulcer. These dressings are changed daily. They are typically covered with gauze or Band-Aid. The patient/staff denies any fever, chills, nausea, vomiting, or diarrhea. Denies any signs of infection, including increasing pain, redness, swelling, or purulent/foul-smelling drainage from affected area. Progress of Wound: Right lateral ankle is stable. Patient staff has been compliant with the use of hydrogel + moistened Fibracol dressing MWF to right lateral ankle ulcer. Patient was previously started on doxycycline for positive wound culture results indicating MRSA and Corynebacterium striatum--her antibiotics have been completed. Staff and patient report doing well, no new concerns today. The patient/staff denies any fever, chills, nausea, vomiting, or diarrhea. Denies any signs of infection, including increasing pain, redness, swelling, or purulent/foul-smelling drainage from affected area. - Physical Exam Vital Signs Temp Pulse Resp BP 98.4 F 98 18 130/78 H 12/21/19 08:53 12/21/19 08:53 12/21/19 08:53 02/14/20 08:53 General: Alert, Cooperative, No apparent distress HEENT: Atraumatic, Normocephalic Oral: Moist Mucosa Lungs: Normal air movement Cardiovascular: Regular rate Extremities: No clubbing, No cyanosis, Edema - Trace edema bilateral lower extremities, Peripheral Pulses Normal Skin: Ulcer/ Wound - Pressure ulcer to right lateral ankle with subcutaneous layer exposed, mild abiola-ulcer erythema. Wound bed is pink and moist with scant slough. Swelling has resolved on right ankle. No purulent/foul-smelling drainage or warmth to touch. Tendon no longer visible, does not probe to bone. No tunneling or undermining. Wound Measurements and Assessment WC - Nurse 1 - General Ulcer Measurement Start: 12/21/19 08:53 Freq: Status: Active Protocol: Activity Type Activity Date Activity User E-Sign Co-Sign Detail Recorded Client Recorded Date Recorded By Document 12/21/19 08:53 MW [id number] 12/21/19 08:57 MW 12/21/19 08:53 Wound Center Nurse 1 [Ulcer Assessment] 1. R lateral ankle -Combined with other wound No -Current Size (cm) - Length 0.1 -Current Size (cm) - Width 0.1 -Current Size (cm) - Depth 0.1 -Total Square Cm 0.01 -Photo Taken No -Epithelialization None Present -Tunneling No -Undermining/Tunneling No -Circular Undermining No -Exudate Amt None Present -Wound Margin Flat & Intact -Granulation Amt None Present (0 %) -Granulation Quality N/A -Slough/Fibrin Yes -Necrosis Amt Large (67-100%) -Necrotic Tissue Type Adherent Slough -Structure Exposed N/A -Texture (Abiola-wound Skin Appearance) Assessed, Scarring -Moisture (Abiola-wound Skin Appearance No Abnormality, ) Assessed -Color (Abiola-wound Skin Appearance) No Abnormality, Assessed -Temperature (Abiola-wound Skin No Abnormality Appearance) (Pt Warm) -Tenderness on Palpation (Abiola-wound No Skin Appearance) -Ulcer Cleansing Rinsed/ Irrigated with Saline -Foul Odor after Cleansing No -Anesthetic Used 4% Lidocaine Solution [Edema Assessment] -Lower Limb Edema Present No WC - Nurse 2 - General Ulcer CM Notes Start: 12/21/19 08:53 Freq: Status: Active Protocol: Activity Type Activity Date Activity User E-Sign Co-Sign Detail Recorded Client Recorded Date Recorded By Document 12/21/19 10:00 DV [id number] 12/21/19 10:01 DV 12/21/19 10:00 Wound Center Nurse 2 [Procedure/Treatment] 1. R lateral ankle -Time 10:00 -Correct Patient Yes -Correct Side, Site, Position Yes -Correct Procedure Yes -Procedure Performed Yes -Type of Procedure Debridement -Clinical Debridement Subcutaneous -Post Debridement Size (cm) - Length 0.5 -Post Debridement Size (cm) - Width 0.4 -Post Debridement Size (cm) - Depth 0.5 -Total Square Cm 0.20 -Wound/Ulcer Outcome Not Healed -Ulcer Cleansing Rinsed/ Irrigated with Saline -Foul Odor after Cleansing No -Bioengineered Tissue No -Bleeding Controlled with Pressure -Offloading No -Treatment Response Procedure Tolerated Well [See Physician Procedure note for Specifics] Pain Scale: 0-10 Numeric [Pain] -Is Patient Pain Free? Yes Musculoskeletal: Tenderness - Mild tenderness on debridement of right lateral ankle ulcer Psych/Mental Status: Normal Affect, Appropriate Debridement Note Post-Debridement Measurements/Treatment WC - Nurse 2 - General Ulcer CM Notes Start: 12/21/19 08:53 Freq: Status: Active Protocol: Activity Type Activity Date Activity User E-Sign Co-Sign Detail Recorded Client Recorded Date Recorded By Document 12/21/19 10:00 Zoondy [id number] 12/21/19 10:01 DV 12/21/19 10:00 Wound Center Nurse 2 1. R lateral ankle -Time 10:00 -Correct Patient Yes -Correct Side, Site, Position Yes -Correct Procedure Yes -Procedure Performed Yes -Type of Procedure Debridement -Clinical Debridement Subcutaneous -Post Debridement Size (cm) - Length 0.5 -Post Debridement Size (cm) - Width 0.4 -Post Debridement Size (cm) - Depth 0.5 -Total Square Cm 0.20 -Wound/Ulcer Outcome Not Healed -Ulcer Cleansing Rinsed/ Irrigated with Saline -Foul Odor after Cleansing No -Bioengineered Tissue No -Bleeding Controlled with Pressure -Offloading No -Treatment Response Procedure Tolerated Well Pain Scale: 0-10 Numeric Is Patient Pain Free? Yes Wound debrided: Right lateral ankle Laterality: Right Type of Debridement: Excisional debridement Anesthesia Used: 5% Lidocaine Gel Depth: in the subcutaneous layer Percentage of wound debrided: 100 Instrument Used: 3mm curette Tissue Removed: Slough and devitalized tissue Severity: Fat Layer Exposed Amount of bleeding with debridement: Mild Bleeding Controlled with: Pressure Patient tolerated procedure well Assessment/Plan Active Problems Pressure ulcer of right ankle, stage 4 (Chronic) Assessment: Pressure ulcer of right ankle, stage IV. Pressure ulcer of left ankle-- healed Plan: Debridement performed today in clinic as annotated above. Hydrogel and moistened Fibracol applied to wound bed. Covered with Adaptic, gauze and tape. At home wound-care instructions: MWF dressing changes of hydrogel + well moistened Fibracol to right lateral ankle. Cover with Adaptic, gauze, and tape. May remove dressings to shower and replace with clean dressings. No soaking or submerging of wounds. Avoid picking at wounds, and keep covered at all times, aside from showering. Compression: Patient has Tubigrip's at home, which may be used to keep wound areas covered. However, patient has no significant edema or evident vascular compromise, so more aggressive compression not needed today. Off-loading: Keep feet elevated when seated, at or above waist level. Avoid prolonged dangling of legs, or prolonged standing. Diet: Patient encouraged to increase protein and vitamin C intake while taking caution to avoid high carbohydrate and/or sugar intake. Per staff member, patient's facility has Salazar available. Recommended implementing this as directed for promotion of wound healing. Labs/cultures/imaging: Cultures reviewed?doxycycline completed. Lab work from patient's living facility from 10/12/2019 reviewed. Vascular studies deferred for the time being. Follow-up: Return to clinic in 2 weeks for re-evaluation. Return sooner or report to the emergency room should symptoms worsen, or new symptoms arise. Note: [employer] speech recognition radiological defense officer software was used to create portions of this document. Sound-alike and misspelled words, as well as other radiological defense officer errors may be contained in the documentation. Code Visit 111xxx-113xx: 88257 Araseli subq tissue 20 sq cm/<
[2019-12-28 08:57] VITALS: BP 136/96; PULSE 103; RESP 18; TEMP 37.3; BMI 25.6
--- NOTE | 2019-12-28 09:45 | WC ---
left ankle hydrogel and gauze pplied
--- NOTE | 2019-12-28 12:17 | PCM.WC.PN ---
(1) Pressure ulcer of right ankle, stage 4 Status: Chronic Current Visit: Yes Code(s): L89.514 - Pressure ulcer of right ankle, stage 4 Type of Wound Date of Service: 12/28/19 Chief Complaint: pressure ulcers of both ankles History of Wound: Patient is a pleasant 59-year-old female who [facility] for initial evaluation of bilateral pressure ulcers to ankles. She presents today with a staff member, Calvin, from [facility] in [facility]. Patient has a mental disability, and is unable to provide a self history. Per staff member, ankle ulcers have been present for approximately 1 month. She believes they may have occurred while patient was admitted to a mental hospital for behavioral issues. During behavioral spells patient frequently crosses ankles and rocks back and forth. She is also a frequent crab picker, and often pulls off her own toenails and fingernails. Patient's other PMH includes hypertension, eczema, and a history of previous pressure ulcers to ankles. Staff at [facility] have been applying Silvadene to patient's left ankle ulcer, and an alginate to patient's right ankle ulcer. These dressings are changed daily. They are typically covered with gauze or Band-Aid. The patient/staff denies any fever, chills, nausea, vomiting, or diarrhea. Denies any signs of infection, including increasing pain, redness, swelling, or purulent/foul-smelling drainage from affected area. Progress of Wound: Right lateral ankle is stable. New area of dry scabbing on left lateral ankle, no open wound present on left ankle. Staff and patient report doing well. The patient/staff denies any fever, chills, nausea, vomiting, or diarrhea. Denies any signs of infection, including increasing pain, redness, swelling, or purulent/foul-smelling drainage from affected area. - Physical Exam Vital Signs Temp Pulse Resp BP 99.1 F 103 H 18 136/96 H 12/28/19 08:57 12/28/19 08:57 12/28/19 08:57 12/28/19 08:57 General: Cooperative, No apparent distress HEENT: Atraumatic, Normocephalic Oral: Moist Mucosa Neck: Supple, No JVD, Trachea Midline Lungs: Normal air movement Cardiovascular: Regular rate Extremities: No clubbing, No cyanosis, No Calf Tenderness, Edema - Trace edema of BLE, Peripheral Pulses Normal Skin: Ulcer/ Wound - Pressure ulcer to right lateral ankle with subcutaneous layer exposed, mild aboila-ulcer erythema. Wound bed is pink and moist with small amount of slough. Moderate amount of dry, crusted devitalized tissue covering wound upon presentation. No purulent or foul-smelling drainage, no warmth to touch. Tendon no longer visible, does not probe to bone. No tunneling or undermining. New area of dry scabbing on left lateral ankle, no open wound present. Wound Measurements and Assessment - Nurse 1 - General Ulcer Measurement Start: 12/21/19 08:53 Freq: Status: Active Protocol: Activity Type Activity Date Activity User E-Sign Co-Sign Detail Recorded Client Recorded Date Recorded By Document 12/28/19 08:57 BS [id number] 12/28/19 09:02 BS 12/28/19 08:57 Wound Center Nurse 1 [Ulcer Assessment] 1. R lateral ankle -Combined with other wound No -Current Size (cm) - Length 0.1 -Current Size (cm) - Width 0.1 -Current Size (cm) - Depth 0.1 -Total Square Cm 0.01 -Texture (Abiola-wound Skin Appearance) No Abnormality, Assessed -Moisture (Abiola-wound Skin Appearance No Abnormality, ) Assessed -Color (Abiola-wound Skin Appearance) No Abnormality, Assessed -Temperature (Abiola-wound Skin No Abnormality Appearance) (Pt Warm) -Tenderness on Palpation (Abiola-wound No Skin Appearance) -Ulcer Cleansing Rinsed/ Irrigated with Saline -Foul Odor after Cleansing No -Anesthetic Used 5% Lidocaine Gel - Nurse 2 - General Ulcer CM Notes Start: 12/21/19 08:53 Freq: Status: Active Protocol: Activity Type Activity Date Activity User E-Sign Co-Sign Detail Recorded Client Recorded Date Recorded By Document 12/28/19 09:29 DV [id number] 12/28/19 09:33 DV 12/28/19 09:29 Wound Center Nurse 2 [Procedure/Treatment] -Time 09:30 -Correct Patient Yes -Correct Side, Site, Position Yes -Correct Procedure Yes -Procedure Performed Yes -Type of Procedure Debridement -Clinical Debridement Subcutaneous -Post Debridement Size (cm) - Length 0.3 -Post Debridement Size (cm) - Width 0.3 -Post Debridement Size (cm) - Depth 0.4 -Total Square Cm 0.09 -Wound/Ulcer Outcome Not Healed -Ulcer Cleansing Rinsed/ Irrigated with Saline -Foul Odor after Cleansing No -Bioengineered Tissue No -Bleeding Controlled with Pressure -Offloading No -Treatment Response Procedure Tolerated Well [See Physician Procedure note for Specifics] Pain Scale: 0-10 Numeric [Pain] -Is Patient Pain Free? Yes Musculoskeletal: Tenderness - Mild tenderness on debridement of right lateral ankle ulcer Psych/Mental Status: Normal Affect, Appropriate Debridement Note Post-Debridement Measurements/Treatment WC - Nurse 2 - General Ulcer CM Notes Start: 12/21/19 08:53 Freq: Status: Active Protocol: Activity Type Activity Date Activity User E-Sign Co-Sign Detail Recorded Client Recorded Date Recorded By Document 12/21/19 10:00 DV [id number] 12/21/19 10:01 DV Document 12/28/19 09:29 DV [id number] 12/28/19 09:33 DV 12/21/19 12/28/19 10:00 09:29 Wound Center Nurse 2 1. R lateral ankle -Time 10:00 09:30 -Correct Patient Yes Yes -Correct Side, Site, Position Yes Yes -Correct Procedure Yes Yes -Procedure Performed Yes Yes -Type of Procedure Debridement Debridement -Clinical Debridement Subcutaneous Subcutaneous -Post Debridement Size (cm) - Length 0.5 0.3 -Post Debridement Size (cm) - Width 0.4 0.3 -Post Debridement Size (cm) - Depth 0.5 0.4 -Total Square Cm 0.20 0.09 -Wound/Ulcer Outcome Not Healed Not Healed -Ulcer Cleansing Rinsed/ Rinsed/ Irrigated with Irrigated with Saline Saline -Foul Odor after Cleansing No No -Bioengineered Tissue No No -Bleeding Controlled with Pressure Pressure -Offloading No No -Treatment Response Procedure Procedure Tolerated Well Tolerated Well Pain Scale: 0-10 Numeric Is Patient Pain Free? Yes Yes Wound debrided: Right lateral ankle Laterality: Right Type of Debridement: Excisional debridement Anesthesia Used: 5% Lidocaine Gel Depth: in the subcutaneous layer Percentage of wound debrided: 100 Instrument Used: 3mm curette Tissue Removed: slough, and devitalized tissue Severity: Fat Layer Exposed Amount of bleeding with debridement: Mild Bleeding Controlled with: Pressure Patient tolerated procedure well Assessment/Plan Active Problems Pressure ulcer of right ankle, stage 4 (Chronic) Assessment: Pressure ulcer of right ankle, stage IV. Pressure ulcer of left ankle-- healed Plan: Debridement performed today in clinic as annotated above. Tyler honey and Adaptic applied to right lateral ankle. Hydrogel and Adaptic applied to left lateral ankle. At home wound-care instructions: MWF dressing changes of bilateral ankles. Apply medihoney and Adaptic to right lateral ankle, cover with gauze and tape. Apply hydrogel and Adaptic to left lateral ankle, cover with gauze and tape. May remove dressings to shower and replace with clean dressings. No soaking or submerging of wounds. Avoid picking at wounds, and keep covered at all times, aside from showering. Compression: Patient has Tubigrip's at home, which may be used to keep wound areas covered. However, patient has no significant edema or evident vascular compromise, so more aggressive compression not needed today. Off-loading: Keep feet elevated when seated, at or above waist level. Avoid prolonged dangling of legs, or prolonged standing. Avoid crossing of ankles, avoid pressure on lateral ankles. Diet: Patient encouraged to increase protein and vitamin C intake while taking caution to avoid high carbohydrate and/or sugar intake. Per staff member, patient's facility has Salazar available. Recommended implementing this as directed for promotion of wound healing. Labs/cultures/imaging: Cultures reviewed?doxycycline completed. Lab work from patient's living facility from 10/12/2019 reviewed. Vascular studies deferred for the time being. Follow-up: Return to clinic in 2 weeks for re-evaluation. Return sooner or report to the emergency room should symptoms worsen, or new symptoms arise. Note: [employer] speech recognition piece marker small arms software was used to create portions of this document. Sound-alike and misspelled words, as well as other piece marker small arms errors may be contained in the documentation. Code Visit 111xxx-113xx: 82646 Araseli subq tissue 20 sq cm/<
== END 2020-01-05 23:59 ==
LOC: WC 08:45
PROVIDERS: Referring Provider Nurse Practitioner Family; Visit Provider Nurse Practitioner Family
DX: L89.514 Pressure ulcer of right ankle, stage 4 (principal); I10 Essential (primary) hypertension; L30.9 Dermatitis, unspecified
CPT/HCPCS: 11042

== ENCOUNTER 2020-01-11 08:08 | Outpatient (RCR) | payer MEDICAID, SELFPAY ==
[2020-01-06 00:50] VITALS: BP 136/96; PULSE 103; RESP 18; TEMP 37.3
[2020-01-11 08:29] VITALS: BP 148/90; PULSE 108; RESP 18; TEMP 36.2; BMI 25.6
--- NOTE | 2020-01-14 08:39 | PN.PCM_ITS ---
(1) Behavioral disorder Status: Chronic (2) Mental disability Status: Chronic Code(s): F79 - Unspecified intellectual disabilities (3) Pressure ulcer of right ankle, stage 4 Status: Resolved Code(s): L89.514 - Pressure ulcer of right ankle, stage 4 (4) Pressure ulcer of left ankle, stage 2 Status: Resolved Code(s): L89.522 - Pressure ulcer of left ankle, stage 2 Type of Wound Date of Service: 01/11/20 Chief Complaint: pressure ulcers of both ankles History of Wound: Patient is a pleasant 59-year-old female who [facility]16[facility] for initial evaluation of bilateral pressure ulcers to ankles. She presents today with a staff member, Calvin, from [facility] in [facility]. Patient has a mental disability, and is unable to provide a self history. Per staff member, ankle ulcers have been present for approximately 1 month. She believes they may have occurred while patient was admitted to a mental hospital for behavioral issues. During behavioral spells patient frequently crosses ankles and rocks back and forth. She is also a frequent cotton picker, and often pulls off her own toenails and fingernails. Patient's other PMH includes hypertension, eczema, and a history of previous pressure ulcers to ankles. Staff at [facility] have been applying Silvadene to patient's left ankle ulcer, and an alginate to patient's right ankle ulcer. These dressings are changed daily. They are typically covered with gauze or Band-Aid. The patient/staff denies any fever, chills, nausea, vomiting, or diarrhea. Denies any signs of infection, including increasing pain, redness, swelling, or purulent/foul-smelling drainage from affected area. Progress of Wound: Right lateral ankle pressure ulcer is healed today, 01/11/2020. Left lateral ankle remains healed. Staff and patient report doing well. The patient/staff denies any fever, chills, nausea, vomiting, or diarrhea. Denies any signs of infection, including increasing pain, redness, swelling, or purulent/foul-smelling drainage from affected area. - Physical Exam Vital Signs Temp Pulse Resp BP 97.1 F L 108 H 18 148/90 H 01/11/20 08:29 01/11/20 08:29 01/11/20 08:29 01/11/20 08:29 General: Alert, Cooperative, No apparent distress HEENT: Atraumatic, Normocephalic Oral: Moist Mucosa Neck: Supple, No JVD, Trachea Midline Lungs: Normal air movement Cardiovascular: Regular rate Extremities: No clubbing, No cyanosis, No edema, Capillary Refill Less than 3 Seconds, Peripheral Pulses Normal Skin: Ulcer/ Wound - Pressure ulcer of right lateral ankle is healed today. Left lateral ankle remains healed. Wound Measurements and Assessment WC - Nurse 1 - General Ulcer Measurement Start: 01/11/20 08:28 Freq: Status: Active Protocol: Activity Type Activity Date Activity User E-Sign Co-Sign Detail Recorded Client Recorded Date Recorded By Document 01/11/20 08:29 MW [id number] 01/11/20 08:33 MW 01/11/20 08:29 Wound Center Nurse 1 [Ulcer Assessment] 1. R lateral ankle -Combined with other wound No -Current Size (cm) - Length 0.1 -Current Size (cm) - Width 0.1 -Current Size (cm) - Depth 0.1 -Total Square Cm 0.01 -Photo Taken No -Epithelialization None Present -Tunneling No -Undermining/Tunneling No -Circular Undermining No -Exudate Amt None Present -Wound Margin Flat & Intact -Granulation Amt None Present (0 %) -Granulation Quality N/A -Slough/Fibrin Yes -Necrosis Amt Small (1-33%) -Necrotic Tissue Type Adherent Slough -Structure Exposed N/A -Texture (Abiola-wound Skin Appearance) Assessed,Callus -Moisture (Abiola-wound Skin Appearance No Abnormality, ) Assessed -Color (Abiola-wound Skin Appearance) No Abnormality, Assessed -Temperature (Abiola-wound Skin No Abnormality Appearance) (Pt Warm) -Ulcer Cleansing Rinsed/ Irrigated with Saline -Foul Odor after Cleansing No -Anesthetic Used 5% Lidocaine Gel [Edema Assessment] -Lower Limb Edema Present No Musculoskeletal: No Tenderness to Palpation of Joints or Extremities Psych/Mental Status: Normal Affect, Appropriate Assessment/Plan Assessment: Pressure ulcer of right ankle, stage IV--healed. Pressure ulcer of left ankle-- healed Plan: Pressure ulcer of right lateral ankle is healed today. No additional wounds are present. Patient is discharged from the [facility] today. Patient/staff instructed to continue avoidance of pressure on bilateral ankles over bony prominences. Staff instructed to keep bilateral ankles covered with gauze and/or socks as needed and as necessary to avoid patient picking/scratching at skin. If there are any questions/concerns, or if new wounds develop, please contact the Wound Healing Center. Note: [employer] speech recognition pest control service technician software was used to create portions of this document. Sound-alike and misspelled words, as well as other pest control service technician errors may be contained in the documentation. Office Visits / Consults: [id number] L3 Est
== END 2020-02-05 23:59 ==
LOC: WC 08:08
PROVIDERS: Referring Provider Nurse Practitioner Family; Visit Provider Nurse Practitioner Family
DX: Z09 Encounter for follow-up examination after completed treatment for conditions other than malignant neoplasm (principal); L30.9 Dermatitis, unspecified; F79 Unspecified intellectual disabilities; I10 Essential (primary) hypertension
CPT/HCPCS: 99212; G0463

== ENCOUNTER 2020-04-24 09:30 | Outpatient (RCR) | payer MEDICAID, SELFPAY ==
[2020-04-17 10:17] VITALS: BP 132/79; PULSE 97; RESP 18; TEMP 36.4; BMI 22.4
--- NOTE | 2020-04-17 10:34 | WC ---
pt caregiver states i pulled yoga pants up adalberto thigh 2 weeks ago then crease noted on skin on thigh . pt picked at crease and formed wound. pt taken to9 stat care 04/09 20 then referred to wound center
--- NOTE | 2020-04-17 12:33 | PCM.WC.HP ---
(1) Ulcer of right thigh Status: Acute Current Visit: Yes Code(s): L97.119 - Non-pressure chronic ulcer of right thigh with unspecified severity (2) Intellectual disability Status: Chronic Current Visit: Yes Code(s): F79 - Unspecified intellectual disabilities History of Present Illness Date of Service: 04/17/20 Chief Complaint: Right thigh ulcers History of Wound: Ms. Polk is a 60-year-old who was brought in by her caregiver from her long term due to right thigh ulcers noted about 2 weeks ago. It was believed that she slept with her pants folded up which caused an impression/dent in her skin with subsequent blistering. Blistering subsequently became ulcers. They state that she otherwise is at her baseline. No chills or fever. No nausea, vomiting or change in bowel habit. Past Medical History Past Medical History: Chronic Problems Mental disability (Chronic) Behavioral disorder (Chronic) Hypertension (Chronic) Eczema (Chronic) Intellectual disability (Chronic) Allergies/Adverse Reactions: Allergies No Known Allergies Allergy (Verified 11/16/19 11:11) Home Medications: Ambulatory Orders Medication Instructions Recorded Atenolol 25 mg PO DAILY 11/16/19 Cetirizine HCl [All Day Allergy] 10 mg PO DAILY 11/16/19 Clozapine [Clozapine Odt] 150 mg PO BID 11/16/19 Famotidine [Pepcid] 40 mg PO DAILY 11/16/19 Lactulose [Constulose] 60 ml PO BID 11/16/19 Levothyroxine [Synthroid] 75 mcg PO DAILY 11/16/19 Magnesium Citrate [Citrate of 296 ml PO QWEEK 11/16/19 Magnesia] Sennosides/Docusate Sodium [Senna 1 ea PO BID 11/16/19 Plus 8.6-50 mg Softgel] Cephalexin [Keflex] 500 mg PO Q8 04/17/20 Multivit with Iron,Minerals 1 ea PO DAILY 04/17/20 [Multivitamins with Iron] Mupirocin [Bactroban] 1 applic TOPICAL DAILY 04/17/20 Smoking Status: Never smoker Review of Systems Constitutional: Denies: Chills, Fever, Weight Change Eyes: Denies: Drainage, Redness HEENT: Denies: Difficulty Hearing, Difficulty Swallowing, Visual Changes Cardiovascular: Denies: Edema, Heaviness, Orthopnea Respiratory: Denies: Cough, Hemoptysis, Wheezing Gastrointestinal: Denies: Abdominal Pain, Hematemesis, Vomiting Genitourinary: Denies: Hematuria Skin: Denies: Jaundice - Physical Exam Vital Signs Temp Pulse Resp BP 97.5 F L 97 18 132/79 H 04/17/20 10:17 04/17/20 10:17 04/17/20 10:17 04/17/20 10:17 General: Alert, Cooperative, No apparent distress HEENT: Atraumatic, EOMI, Normocephalic Oral: Moist Mucosa Neck: Supple Lungs: Normal air movement Abdomen: Non Tender Extremities: No clubbing Skin: Ulcer/ Wound Wound Measurements and Assessment WC - Nurse 1 - General Ulcer Measurement Start: 04/17/20 10:13 Freq: Status: Active Protocol: Activity Type Activity Date Activity User E-Sign Co-Sign Detail Recorded Client Recorded Date Recorded By Document 04/17/20 10:17 RB [id number] 04/17/20 10:32 RB 04/17/20 10:17 Wound Center Nurse 1 [Ulcer Assessment] 3.R thigh superior -Current Size (cm) - Length 0.4 -Current Size (cm) - Width 0.4 -Current Size (cm) - Depth 0.1 -Total Square Cm 0.16 -Photo Taken Yes -Tunneling No -Undermining/Tunneling No -Circular Undermining No -Exudate Amt Small -Exudate Type Serosanguineous -Wound Margin Flat & Intact -Granulation Amt Medium (34-66%) -Granulation Quality [place] -Slough/Fibrin Yes -Necrosis Amt Small (1-33%) -Necrotic Tissue Type Adherent Slough -Structure Exposed N/A -Texture (Abiola-wound Skin Appearance) Assessed, Scarring -Moisture (Abiola-wound Skin Appearance Assessed ) -Color (Abiola-wound Skin Appearance) Assessed -Temperature (Abiola-wound Skin No Abnormality Appearance) (Pt Warm) -Tenderness on Palpation (Abiola-wound No Skin Appearance) -Ulcer Cleansing Wound Cleanser -Foul Odor after Cleansing No -Anesthetic Used 4% Lidocaine Solution WC - Nurse 2 - General Ulcer CM Notes Start: 04/17/20 10:13 Freq: Status: Active Protocol: Activity Type Activity Date Activity User E-Sign Co-Sign Detail Recorded Client Recorded Date Recorded By Document 04/17/20 10:51 MW [id number] 04/17/20 10:56 MW 06/11/20 10:51 Wound Center Nurse 2 [Procedure/Treatment] #4 Right thigh inferior -Time 10:54 -Correct Patient Yes -Correct Side, Site, Position Yes -Correct Procedure Yes -Procedure Performed Yes -Type of Procedure Debridement -Clinical Debridement Subcutaneous -Post Debridement Size (cm) - Length 0.3 -Post Debridement Size (cm) - Width 0.4 -Post Debridement Size (cm) - Depth 0.1 -Total Square Cm 0.12 -Wound/Ulcer Outcome Not Healed -Ulcer Cleansing Rinsed/ Irrigated with Saline -Foul Odor after Cleansing No -Bioengineered Tissue No -Bleeding Controlled with Pressure -Offloading No -Treatment Response Procedure Tolerated Well 3.R thigh superior -Time 10:54 -Correct Patient Yes -Correct Side, Site, Position Yes -Correct Procedure Yes -Procedure Performed Yes -Type of Procedure Debridement -Clinical Debridement Subcutaneous -Post Debridement Size (cm) - Length 0.7 -Post Debridement Size (cm) - Width 0.4 -Post Debridement Size (cm) - Depth 0.1 -Total Square Cm 0.28 -Wound/Ulcer Outcome Not Healed -Ulcer Cleansing Rinsed/ Irrigated with Saline -Foul Odor after Cleansing No -Bioengineered Tissue No -Bleeding Controlled with Pressure -Offloading No -Treatment Response Procedure Tolerated Well [See Physician Procedure note for Specifics] Pain Scale: 0-10 Numeric [Pain] -Is Patient Pain Free? Yes Musculoskeletal: No Muscle Wasting Neurological: Cranial nerves II-XII grossly intact Debridement Note Post-Debridement Measurements/Treatment WC - Nurse 2 - General Ulcer CM Notes Start: 04/17/20 10:13 Freq: Status: Active Protocol: Activity Type Activity Date Activity User E-Sign Co-Sign Detail Recorded Client Recorded Date Recorded By Document 04/17/20 10:51 MW [id number] 04/17/20 10:56 MW 04/17/20 10:51 Wound Center Nurse 2 #4 Right thigh inferior -Time 10:54 -Correct Patient Yes -Correct Side, Site, Position Yes -Correct Procedure Yes -Procedure Performed Yes -Type of Procedure Debridement -Clinical Debridement Subcutaneous -Post Debridement Size (cm) - Length 0.3 -Post Debridement Size (cm) - Width 0.4 -Post Debridement Size (cm) - Depth 0.1 -Total Square Cm 0.12 -Wound/Ulcer Outcome Not Healed -Ulcer Cleansing Rinsed/ Irrigated with Saline -Foul Odor after Cleansing No -Bioengineered Tissue No -Bleeding Controlled with Pressure -Offloading No -Treatment Response Procedure Tolerated Well 3.R thigh superior -Time 10:54 -Correct Patient Yes -Correct Side, Site, Position Yes -Correct Procedure Yes -Procedure Performed Yes -Type of Procedure Debridement -Clinical Debridement Subcutaneous -Post Debridement Size (cm) - Length 0.7 -Post Debridement Size (cm) - Width 0.4 -Post Debridement Size (cm) - Depth 0.1 -Total Square Cm 0.28 -Wound/Ulcer Outcome Not Healed -Ulcer Cleansing Rinsed/ Irrigated with Saline -Foul Odor after Cleansing No -Bioengineered Tissue No -Bleeding Controlled with Pressure -Offloading No -Treatment Response Procedure Tolerated Well Pain Scale: 0-10 Numeric Is Patient Pain Free? Yes Wound debrided: Right thigh (superior) Type of Debridement: Excisional debridement Anesthesia Used: 4% Lidocaine Solution Depth: Down to and including healthy tissue, in the subcutaneous layer Instrument Used: 3mm curette Tissue Removed: Slough and devitalized tissue Severity: Fat Layer Exposed Amount of bleeding with debridement: Mild Bleeding Controlled with: Pressure Patient tolerated procedure well - Additional Wound Wound debrided: Right thigh inferior Type of Debridement: Excisional debridement Anesthesia Used: 4% Lidocaine Solution Depth: Down to and including healthy tissue, in the subcutaneous layer Percentage of wound debrided: 100 Instrument Used: 3mm curette Tissue Removed: Slough and devitalized tissue Severity: Fat Layer Exposed Amount of bleeding with debridement: Mild Bleeding Controlled with: Pressure Patient tolerated procedure: Patient tolerated procedure well Assessment/Plan Active Problems Ulcer of right thigh (Acute) Intellectual disability (Chronic) Assessment: Same as above. Plan: Debridement done as documented above, procedure was well-tolerated. Promogran daily to both ulcers with Adaptic and gauze over top. Keep area protected so patient does not pick at it. Increase protein intake. Their questions were answered and they were advised to call with any further questions or concerns. Follow-up in a week. This note was generated with [employer] dictation software. It may contain incorrect words, spelling, and punctuation that were not noted in checking the note before signing. Multi Select Codes - Visit Charges Office Visit/Consults: 04381 OV L3 Est - Integumentary Integumentary CPT Codes: 33813 Araseli subq tissue 20 sq cm/<
[2020-04-24 09:30] VITALS: BP 138/92; PULSE 105; RESP 20; TEMP 36.9; BMI 22.4
--- NOTE | 2020-04-24 09:50 | PN.PCM_ITS ---
(1) Ulcer of right thigh Status: Acute Current Visit: Yes Code(s): L97.119 - Non-pressure chronic ulcer of right thigh with unspecified severity (2) Intellectual disability Status: Chronic Current Visit: Yes Code(s): F79 - Unspecified intellectual disabilities Type of Wound Date of Service: 04/24/20 Chief Complaint: Right thigh ulcers History of Wound: Ms. Polk is a 60-year-old who was brought in by her caregiver from her custodial due to right thigh ulcers noted about 2 weeks ago. It was believed that she slept with her pants folded up which caused an impression/dent in her skin with subsequent blistering. Blistering subsequently became ulcers. They state that she otherwise is at her baseline. No chills or fever. No nausea, vomiting or change in bowel habit. Progress of Wound: Improving. No new concerns. - Physical Exam Vital Signs Temp Pulse Resp BP 98.5 F 105 H 20 H 138/92 H 04/24/20 09:30 04/24/20 09:30 04/24/20 09:30 04/24/20 09:30 General: Alert, Cooperative, No apparent distress HEENT: Atraumatic, Normocephalic Oral: Moist Mucosa Neck: Supple Lungs: Normal air movement Extremities: No cyanosis Skin: Ulcer/ Wound Wound Measurements and Assessment WC - Nurse 1 - General Ulcer Measurement Start: 04/17/20 10:13 Freq: Status: Active Protocol: Activity Type Activity Date Activity User E-Sign Co-Sign Detail Recorded Client Recorded Date Recorded By Document 04/24/20 09:30 [id number] 04/24/20 09:36 BS 04/24/20 09:30 Wound Center Nurse 1 [Ulcer Assessment] #4 Right thigh inferior -Combined with other wound No -Current Size (cm) - Length 6.0 -Current Size (cm) - Width 1.0 -Current Size (cm) - Depth 0.1 -Total Square Cm 6.00 -Photo Taken No -Granulation Quality [place] -Texture (Abiola-wound Skin Appearance) No Abnormality, Assessed -Moisture (Abiola-wound Skin Appearance Assessed,Dry/ ) Scaly -Color (Abiola-wound Skin Appearance) No Abnormality, Assessed -Temperature (Baiola-wound Skin No Abnormality Appearance) (Pt Warm) -Tenderness on Palpation (Abiola-wound No Skin Appearance) -Ulcer Cleansing Rinsed/ Irrigated with Saline -Foul Odor after Cleansing No -Anesthetic Used 4% Lidocaine Solution 3.R thigh superior -Combined with other wound No -Current Size (cm) - Length 0.5 -Current Size (cm) - Width 0.3 -Current Size (cm) - Depth 0.1 -Total Square Cm 0.15 -Photo Taken No -Granulation Quality [place] -Texture (Abiola-wound Skin Appearance) No Abnormality, Assessed -Moisture (Abiola-wound Skin Appearance Assessed,Dry/ ) Scaly -Color (Abiola-wound Skin Appearance) No Abnormality, Assessed -Temperature (Abiola-wound Skin No Abnormality Appearance) (Pt Warm) -Tenderness on Palpation (Abiola-wound No Skin Appearance) -Ulcer Cleansing Rinsed/ Irrigated with Saline -Foul Odor after Cleansing No -Anesthetic Used 4% Lidocaine Solution [Edema Assessment] -Lower Limb Edema Present NA Musculoskeletal: No Muscle Wasting Neurological: Cranial nerves II-XII grossly intact Debridement Note Post-Debridement Measurements/Treatment WC - Nurse 2 - General Ulcer CM Notes Start: 04/17/20 10:13 Freq: Status: Active Protocol: Activity Type Activity Date Activity User E-Sign Co-Sign Detail Recorded Client Recorded Date Recorded By Document 04/17/20 10:51 MW [id number] 04/17/20 10:56 MW 04/17/20 10:51 Wound Center Nurse 2 #4 Right thigh inferior -Time 10:54 -Correct Patient Yes -Correct Side, Site, Position Yes -Correct Procedure Yes -Procedure Performed Yes -Type of Procedure Debridement -Clinical Debridement Subcutaneous -Post Debridement Size (cm) - Length 0.3 -Post Debridement Size (cm) - Width 0.4 -Post Debridement Size (cm) - Depth 0.1 -Total Square Cm 0.12 -Wound/Ulcer Outcome Not Healed -Ulcer Cleansing Rinsed/ Irrigated with Saline -Foul Odor after Cleansing No -Bioengineered Tissue No -Bleeding Controlled with Pressure -Offloading No -Treatment Response Procedure Tolerated Well 3.R thigh superior -Time 10:54 -Correct Patient Yes -Correct Side, Site, Position Yes -Correct Procedure Yes -Procedure Performed Yes -Type of Procedure Debridement -Clinical Debridement Subcutaneous -Post Debridement Size (cm) - Length 0.7 -Post Debridement Size (cm) - Width 0.4 -Post Debridement Size (cm) - Depth 0.1 -Total Square Cm 0.28 -Wound/Ulcer Outcome Not Healed -Ulcer Cleansing Rinsed/ Irrigated with Saline -Foul Odor after Cleansing No -Bioengineered Tissue No -Bleeding Controlled with Pressure -Offloading No -Treatment Response Procedure Tolerated Well Pain Scale: 0-10 Numeric Is Patient Pain Free? Yes Wound debrided: Right thigh inferior Type of Debridement: Excisional debridement Anesthesia Used: 4% Lidocaine Solution Depth: Down to and including healthy tissue, in the subcutaneous layer Percentage of wound debrided: 100 Instrument Used: 3mm curette Tissue Removed: Slough and devitalized tissue Severity: Fat Layer Exposed Amount of bleeding with debridement: Mild Bleeding Controlled with: Pressure Patient tolerated procedure well - Additional Wound Wound debrided: Right thigh superior Type of Debridement: Excisional debridement Anesthesia Used: 4% Lidocaine Solution Depth: Down to and including healthy tissue, in the subcutaneous layer Percentage of wound debrided: 100 Instrument Used: 3mm curette Tissue Removed: Slough and devitalized tissue Severity: Fat Layer Exposed Amount of bleeding with debridement: Mild Bleeding Controlled with: Pressure Patient tolerated procedure: Patient tolerated procedure well Assessment/Plan Active Problems Ulcer of right thigh (Acute) Intellectual disability (Chronic) Assessment: Same as above. Plan: Debridement done as documented above, procedure was well-tolerated. Continue Promogran daily to both ulcers with Adaptic and gauze over top. Keep area protected so patient does not pick at it. Increase protein intake. Their questions were answered and they were advised to call with any further questions or concerns. Follow-up in 2 weeks. This note was generated with [employer] dictation software. It may contain incorrect words, spelling, and punctuation that were not noted in checking the note before signing. [id number]: [id number] Araseli subq tissue 20 sq cm/<
== END 2020-05-06 23:59 ==
LOC: WC 09:30
PROVIDERS: Visit Provider Internal Medicine
DX: L97.112 Non-pressure chronic ulcer of right thigh with fat layer exposed (principal); F79 Unspecified intellectual disabilities; I10 Essential (primary) hypertension; L30.9 Dermatitis, unspecified; Z79.899 Other long term (current) drug therapy
CPT/HCPCS: 11042; 99213; G0463

== ENCOUNTER 2020-05-08 07:58 | Outpatient (RCR) | payer MEDICAID, SELFPAY ==
[2020-05-07 00:37] VITALS: BP 138/92; PULSE 105; RESP 20; TEMP 36.9
[2020-05-08 09:16] VITALS: BP 124/74; PULSE 102; RESP 18; TEMP 36.8; BMI 22.4
--- NOTE | 2020-05-08 10:05 | PN.PCM_ITS ---
(1) Ulcer of right thigh Status: Acute Current Visit: Yes Code(s): L97.119 - Non-pressure chronic ulcer of right thigh with unspecified severity (2) Intellectual disability Status: Chronic Current Visit: Yes Code(s): F79 - Unspecified intellectual disabilities Type of Wound Date of Service: 05/08/20 Chief Complaint: Right thigh ulcers History of Wound: Ms. Polk is a 60-year-old who was brought in by her caregiver from her custodial due to right thigh ulcers noted about 2 weeks ago. It was believed that she slept with her pants folded up which caused an impression/dent in her skin with subsequent blistering. Blistering subsequently became ulcers. They state that she otherwise is at her baseline. No chills or fever. No nausea, vomiting or change in bowel habit. Progress of Wound: Healed. No new concerns at this time. - Physical Exam Vital Signs Temp Pulse Resp BP 98.2 F 102 H 18 124/74 H 05/08/20 09:16 05/08/20 09:16 05/08/20 09:16 05/08/20 09:16 General: Alert, Cooperative, No apparent distress HEENT: Atraumatic, Normocephalic Oral: Moist Mucosa Neck: Supple Lungs: Normal air movement Extremities: No cyanosis Wound Measurements and Assessment WC - Nurse 1 - General Ulcer Measurement Start: 05/08/20 09:16 Freq: Status: Active Protocol: Activity Type Activity Date Activity User E-Sign Co-Sign Detail Recorded Client Recorded Date Recorded By Document 05/08/20 09:16 DL [id number] 05/08/20 09:22 DL 05/08/20 09:16 Wound Center Nurse 1 [Ulcer Assessment] #4 Right thigh inferior -Combined with other wound No -Current Size (cm) - Length 0.1 -Current Size (cm) - Width 0.1 -Current Size (cm) - Depth 0.1 -Total Square Cm 0.01 -Tunneling No -Undermining/Tunneling No -Circular Undermining No -Wound Margin Flat & Intact -Granulation Amt Large (67-100%) -Granulation Quality [place] -Slough/Fibrin Yes -Necrosis Amt Small (1-33%) -Necrotic Tissue Type Adherent Slough -Structure Exposed N/A -Texture (Abiola-wound Skin Appearance) Assessed -Moisture (Abiola-wound Skin Appearance Assessed ) -Color (Abiola-wound Skin Appearance) Assessed -Temperature (Abiola-wound Skin No Abnormality Appearance) (Pt Warm) -Tenderness on Palpation (Abiola-wound No Skin Appearance) -Ulcer Cleansing Wound Cleanser -Foul Odor after Cleansing No -Anesthetic Used 4% Lidocaine Solution 3.R thigh superior -Combined with other wound No -Current Size (cm) - Length 0.1 -Current Size (cm) - Width 0.1 -Current Size (cm) - Depth 0.1 -Total Square Cm 0.01 -Tunneling No -Undermining/Tunneling No -Circular Undermining No -Exudate Amt Large -Exudate Type Serosanguineous -Wound Margin Flat & Intact -Granulation Amt Small (1-33%) -Granulation Quality [place] -Slough/Fibrin Yes -Necrosis Amt Small (1-33%) -Necrotic Tissue Type Adherent Slough -Structure Exposed N/A -Texture (Abiola-wound Skin Appearance) Assessed -Moisture (Abiola-wound Skin Appearance Assessed ) -Color (Abiola-wound Skin Appearance) Assessed -Temperature (Abiola-wound Skin No Abnormality Appearance) (Pt Warm) -Tenderness on Palpation (Abiola-wound No Skin Appearance) -Ulcer Cleansing Wound Cleanser -Foul Odor after Cleansing No -Anesthetic Used 4% Lidocaine Solution WC - Nurse 2 - General Ulcer CM Notes Start: 05/08/20 09:16 Freq: Status: Active Protocol: Activity Type Activity Date Activity User E-Sign Co-Sign Detail Recorded Client Recorded Date Recorded By Document 05/08/20 09:28 MW [id number] 05/08/20 09:29 MW 05/08/20 09:28 Wound Center Nurse 2 [Procedure/Treatment] #4 Right thigh inferior -Time 09:28 -Correct Patient Yes -Correct Side, Site, Position Yes -Correct Procedure Yes -Procedure Performed No -Post Debridement Size (cm) - Length 0 -Post Debridement Size (cm) - Width 0 -Post Debridement Size (cm) - Depth 0 -Total Square Cm 0 -Wound/Ulcer Outcome Healed- Epithelialized 3.R thigh superior -Time 09:28 -Correct Patient Yes -Correct Side, Site, Position Yes -Correct Procedure Yes -Procedure Performed No -Post Debridement Size (cm) - Length 0 -Post Debridement Size (cm) - Width 0 -Post Debridement Size (cm) - Depth 0 -Total Square Cm 0 -Wound/Ulcer Outcome Healed- Epithelialized [See Physician Procedure note for Specifics] Pain Scale: 0-10 Numeric [Pain] -Is Patient Pain Free? Yes Musculoskeletal: No Muscle Wasting Neurological: Cranial nerves II-XII grossly intact Debridement Note Post-Debridement Measurements/Treatment WC - Nurse 2 - General Ulcer CM Notes Start: 05/08/20 09:16 Freq: Status: Active Protocol: Activity Type Activity Date Activity User E-Sign Co-Sign Detail Recorded Client Recorded Date Recorded By Document 05/08/20 09:28 MW [id number] 05/08/20 09:29 MW 05/08/20 09:28 Wound Center Nurse 2 #4 Right thigh inferior -Time 09:28 -Correct Patient Yes -Correct Side, Site, Position Yes -Correct Procedure Yes -Procedure Performed No -Post Debridement Size (cm) - Length 0 -Post Debridement Size (cm) - Width 0 -Post Debridement Size (cm) - Depth 0 -Total Square Cm 0 -Wound/Ulcer Outcome Healed- Epithelialized 3.R thigh superior -Time 09:28 -Correct Patient Yes -Correct Side, Site, Position Yes -Correct Procedure Yes -Procedure Performed No -Post Debridement Size (cm) - Length 0 -Post Debridement Size (cm) - Width 0 -Post Debridement Size (cm) - Depth 0 -Total Square Cm 0 -Wound/Ulcer Outcome Healed- Epithelialized Pain Scale: 0-10 Numeric Is Patient Pain Free? Yes No debridement was completed today Assessment/Plan Active Problems Ulcer of right thigh (Acute) Intellectual disability (Chronic) Assessment: Healed. Plan: Healed. No new concerns. Adaptic over area for 2 weeks and stop. Keep area protected always due to constant scratching by patient. Call with any questions or concerns. Discharge from the wound clinic. This note was generated with [employer] dictation software. It may contain incorrect words, spelling, and punctuation that were not noted in checking the note before signing. Office Visits / Consults: 04138 OV L3 Est
== END 2020-06-06 23:59 ==
LOC: WC 07:58
PROVIDERS: Visit Provider Internal Medicine
DX: L97.119 Non-pressure chronic ulcer of right thigh with unspecified severity (principal); F79 Unspecified intellectual disabilities
CPT/HCPCS: 99213; G0463

== ENCOUNTER 2020-11-04 10:00 | Outpatient (RCR) | payer MEDICAID, SELFPAY ==
[2020-06-07 00:34] VITALS: BP 124/74; PULSE 102; RESP 18; TEMP 36.8
--- NOTE | 2020-10-28 15:21 | PCM.WC.HP ---
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 Code(s): G21.19 - Other drug induced secondary parkinsonism (7) Pressure ulcer of left ankle Status: Chronic Code(s): L89.529 - Pressure ulcer of left ankle, unspecified stage (8) Pressure ulcer of right heel Status: Chronic Code(s): L89.619 - Pressure ulcer of right heel, unspecified stage (9) Pressure ulcer of sacral region Status: Chronic Code(s): L89.159 - Pressure ulcer of sacral region, unspecified stage (10) Mental disability Status: Chronic Code(s): F79 - Unspecified intellectual disabilities (11) Behavioral disorder Status: Chronic (12) Hypertension Status: Chronic Code(s): I10 - Essential (primary) hypertension (13) Eczema Status: Chronic Code(s): L30.9 - Dermatitis, unspecified (14) Intellectual disability Status: Chronic Code(s): F79 - Unspecified intellectual disabilities History of Present Illness Date of Service: 10/28/20 - Telehealth visit Chief Complaint: Multiple pressure ulcerations History of Wound: The patient interaction was conducted by means of telehealth. The patient was located at her correction in [place], [place], [facility], [facility] and communication was by means of audiovisual from the [facility]. The patient was assisted at the bedside by Calvin Trotter and Rebeka. The interaction lasted approximately 35 minutes. +++++++++++++++++++++++++++++++++++++++++++++++++++++++++++++++++++++++++++++++++++++++++++++++++++++++++++++++++This is a 60-year-old female who suffers from cognitive and intellectual disability, and who is a resident of a correction with 7 other residents. She has developed pressure ulcerations on the right heel, left lateral malleolus, and sacrum. These have been present for several weeks. It is learned that the patient spends a great deal of time in bed. She is not very mobile. She sleeps on a regular mattress. Her appetite is described as not good. She is also incontinent of urine. She is also known to be a roller picker with respect to her wounds and scabs. The patient has been previously treated for an ulceration of the right ankle in November 2019, at which time she was diagnosed with a MRSA infection. Also of note, the patient was recently diagnosed with Covid, and is now recovering. 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 She suffers from diabetes mellitus, gastroesophageal reflux disease, eczema, chronic constipation, urinary incontinence, hypothyroidism, bilateral cataracts, history of pituitary adenoma, hypertension, and parkinsonism secondary to psychological medications. Patient's history is negative for myocardial infarction, congestive heart failure, renal disease, and hyperlipidemia. Surgical History: no surgical history Allergies/Adverse Reactions: Allergies No Known Allergies Allergy (Verified 11/16/19 11:11) Home Medications: Ambulatory Orders Medication Instructions Recorded Atenolol 25 mg PO DAILY 11/16/19 Cetirizine HCl [All Day Allergy] 10 mg PO DAILY 11/16/19 Clozapine [Clozapine Odt] 150 mg PO BID 11/16/19 Famotidine [Pepcid] 40 mg PO DAILY 11/16/19 Lactulose [Constulose] 60 ml PO BID 11/16/19 Levothyroxine [Synthroid] 75 mcg PO DAILY 11/16/19 Magnesium Citrate [Citrate of 296 ml PO QWEEK 11/16/19 Magnesia] Sennosides/Docusate Sodium [Senna 1 ea PO BID 11/16/19 Plus 8.6-50 mg Softgel] Cephalexin [Keflex] 500 mg PO Q8 04/17/20 Multivit with Iron,Minerals 1 ea PO DAILY 04/17/20 [Multivitamins with Iron] Mupirocin [Bactroban] 1 applic TOPICAL DAILY 04/17/20 Social History: The patient lives in a correction with 7 other residents. Her medical affairs are overseen by a court appointed power of ip technology transactions attorney. She does not smoke or drink alcohol. Smoking Status: Never smoker Tobacco Use: Non-smoker Alcohol: None Drugs: None Review of Systems Constitutional: Denies: Chills, Fever, Weight Change Eyes: Denies: Pain, Vision Change HEENT: Denies: Difficulty Hearing, Difficulty Swallowing, Sinus Congestion Cardiovascular: Denies: Chest Pain, Palpitations Respiratory: Denies: Cough, Shortness of Breath Gastrointestinal: Denies: Diarrhea, Nausea, Vomiting Genitourinary: Denies: Dysuria, Hematuria Endocrine: Denies: Heat/ Cold Intolerance, Polydipsia, Polyuria Hematologic/ Lymphatic: Denies: Easy Bruising, Easy Bleeding - Physical Exam Vital Signs Temp Pulse Resp BP 98.2 F 102 H 18 124/74 H 06/07/20 00:34 06/07/20 00:34 06/07/20 00:34 06/07/20 00:34 General: No apparent distress, Well developed, - - The patient appears to be calm though at times a bit erratic, with some screaming noted with repositioning. HEENT: Atraumatic, Normocephalic Lungs: Normal air movement Extremities: No clubbing, No cyanosis Addt'l Wound Findings: Patient's wounds were examined by telehealth audiovisual transmission. She was noted to have an ulceration on the left lateral malleolus, which appeared smaller than dime size, but with the presence of necrotic material. The ulceration of the right heel was somewhat larger, but also necrotic. Necrosis was also noted in the sacral region, though this ulceration appears to be somewhat superficial. These impressions, however, were derived by means of audiovisual assessment, which is somewhat deficient in allowing for full assessment. None of the ulcerations, however, appeared to be grossly infected. Neurological: Cranial nerves II-XII grossly intact Psych/Mental Status: - - The patient was noted to have a relatively normal affect while at rest. With repositioning, the patient became somewhat excited and was observed to scream and demonstrate some uncooperative behavior. 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 She is a resident of a correction. She has developed pressure ulcerations of the left ankle, right heel, and sacral region within the last several weeks. It is noted that the patient sleeps on a regular mattress. She is not very mobile, and spends a great deal of time lying in bed. Her appetite is not known to be good. She suffers from multiple medical problems, which are listed above. Plan: A lengthy discussion has been undertaken with the patient's bedside assistance. Offloading measures have been recommended. We have recommended a low air loss mattress. Soft, padded heel protectors have been recommended as well, to protect the heel and ankle ulcerations. Frequent repositioning has been advised. Nutritional optimization has also been recommended. Because of the pain necrotic material at each of the 3 ulceration sites, we are to initiate the use of collagenase Santyl topically to each of the sites, which will be applied on a daily basis. The patient is to return in 1 week onsite for a more thorough and in-depth evaluation. We are to arrange for routine laboratory studies to be obtained, which will include a CBC, comprehensive metabolic profile, serum prealbumin, and a hemoglobin A1c. The patient is not a smoker. Influenza vaccine was not administered today. Patient stands 5 feet 6 inches tall. She weighs 123 pounds. Her BMI is 19.9, which is normal.
--- NOTE | 2020-10-28 16:41 | WC ---
Perscription for Santyl was called into [facility] [phone]
[2020-11-04 10:31] VITALS: BP 105/70; PULSE 108; RESP 16; TEMP 35.9; BMI 22.8
--- NOTE | 2020-11-04 12:39 | PCM.WC.HP ---
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 Code(s): G21.19 - Other drug induced secondary parkinsonism (7) Pressure ulcer of left ankle Status: Chronic Qualifiers: Pressure injury stage: stage 3 Qualified Code(s): L89.523 - Pressure ulcer of left ankle, stage 3 Code(s): L89.529 - Pressure ulcer of left ankle, unspecified stage (8) Pressure ulcer of right heel Status: Chronic Qualifiers: Pressure injury stage: stage 3 Qualified Code(s): L89.613 - Pressure ulcer of right heel, stage 3 Code(s): L89.619 - Pressure ulcer of right heel, unspecified stage (9) Pressure ulcer of sacral region Status: Chronic Qualifiers: Pressure injury stage: stage 3 Qualified Code(s): L89.153 - Pressure ulcer of sacral region, stage 3 Code(s): L89.159 - Pressure ulcer of sacral region, unspecified stage (10) Mental disability Status: Chronic Code(s): F79 - Unspecified intellectual disabilities (11) Behavioral disorder Status: Chronic (12) Hypertension Status: Chronic Code(s): I10 - Essential (primary) hypertension (13) Eczema Status: Chronic Code(s): L30.9 - Dermatitis, unspecified (14) Intellectual disability Status: Chronic Code(s): F79 - Unspecified intellectual disabilities History of Present Illness Date of Service: 11/04/20 Chief Complaint: Multiple pressure ulcerations History of Wound: This is a 60-year-old female who suffers from cognitive and intellectual disability, and who is a resident of a long-term with 7 other residents. She has developed pressure ulcerations on the right heel, left lateral malleolus, and sacrum. These had been present for several weeks. It was learned that the patient spends a great deal of time in bed. She is not very mobile. She sleeps on a regular mattress. Her appetite is described as not good. She is also incontinent of urine. 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 The patient has been previously treated for an ulceration of the right ankle in November 2019, at which time she was diagnosed with a MRSA infection. Also of note, the patient was recently diagnosed with Covid, and is now recovered. 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) Pressure ulcer of left ankle (Chronic) Pressure ulcer of right heel (Chronic) Pressure ulcer of sacral region (Chronic) Surgical History: no surgical history Allergies/Adverse Reactions: Allergies No Known Allergies Allergy (Verified 11/16/19 11:11) Home Medications: Ambulatory Orders Medication Instructions Recorded Atenolol 25 mg PO DAILY 11/16/19 Cetirizine HCl [All Day Allergy] 10 mg PO DAILY 11/16/19 Clozapine [Clozapine Odt] 150 mg PO BID 11/16/19 Lactulose [Constulose] 60 ml PO BID 11/16/19 Levothyroxine [Synthroid] 75 mcg PO DAILY 11/16/19 Magnesium Citrate [Citrate of 296 ml PO QWEEK 11/16/19 Magnesia] Sennosides/Docusate Sodium [Senna 1 ea PO BID 11/16/19 Plus 8.6-50 mg Softgel] Cephalexin [Keflex] 500 mg PO Q8 04/17/20 Multivit with Iron,Minerals 1 ea PO DAILY 04/17/20 [Multivitamins with Iron] Hydrocortisone Acetate Cream 1 applic RECTAL QHS PRN PRN 11/04/20 [Anusol Hc] Mirtazapine 7.5 mg PO QHS 11/04/20 Nut.tx.gluc.intoler,Lac-Fr,Soy 237 ml PO TID 11/04/20 [Glucerna] Pantoprazole Sodium 40 mg PO DAILY 11/04/20 Lives: - - longterm Smoking Status: Never smoker Tobacco Use: Non-smoker Alcohol: None Drugs: None Review of Systems Neurological: Reports: - - Patient suffers from intellectual and cognitive disabilities. - Physical Exam Vital Signs Temp Pulse Resp BP 96.7 F L 108 H 16 105/70 11/04/20 10:31 11/04/20 10:31 11/04/20 10:31 11/04/20 10:31 General: Alert, Oriented x3, Cooperative, No apparent distress, Well developed, Well nourished, - - Despite her intellectual and cognitive disabilities, the patient was largely calm and compliant. HEENT: Atraumatic, PERRLA, EOMI, Normocephalic Oral: Moist Mucosa Neck: No JVD Lungs: Normal air movement Abdomen: Non-Distended Extremities: No clubbing, No cyanosis, No edema, No Calf Tenderness Addt'l Wound Findings: The dimensions of each of the patient's 3 ulcerations are documented elsewhere. Each appears to be a pressure ulceration, Category 3 in nature. There is a small ulceration on the left lateral malleolus. There is a large amount of bioburden and nonviable tissue present. There is a large ulceration on the right heel. There is a large amount of bioburden and nonviable tissue. There is also a large ulceration in the right sacral area, containing a large amount of nonviable tissue and bioburden. There is no sign of infection or cellulitis at any of the 3 ulceration sites. Skin: No rashes Wound Measurements and Assessment WC - Nurse 1 - General Ulcer Measurement Start: 10/28/20 14:50 Freq: Status: Active Protocol: Activity Type Activity Date Activity User E-Sign Co-Sign Detail Recorded Client Recorded Date Recorded By Document 11/04/20 10:31 MW [id number] 11/04/20 10:47 MW 11/04/20 10:31 Wound Center Nurse 1 [Ulcer Assessment] #7 sacral -Combined with other wound No -Current Size (cm) - Length 2.7 -Current Size (cm) - Width 2.8 -Current Size (cm) - Depth 0.2 -Total Square Cm 7.56 -Photo Taken No -Epithelialization None Present -Tunneling No -Undermining/Tunneling No -Circular Undermining No -Exudate Amt Medium -Exudate Type Serosanguineous -Wound Margin Flat & Intact -Granulation Amt None Present (0 %) -Granulation Quality N/A -Slough/Fibrin Yes -Necrosis Amt Large (67-100%) -Necrotic Tissue Type Adherent Slough -Structure Exposed N/A -Texture (Abiola-wound Skin Appearance) No Abnormality, Assessed -Moisture (Abiola-wound Skin Appearance No Abnormality, ) Assessed -Color (Abiola-wound Skin Appearance) No Abnormality, Assessed -Temperature (Abiola-wound Skin No Abnormality Appearance) (Pt Warm) -Tenderness on Palpation (Abiola-wound Yes Skin Appearance) -Ulcer Cleansing Rinsed/ Irrigated with Saline -Foul Odor after Cleansing No -Anesthetic Used 4% Lidocaine Solution #6 left ankle -Combined with other wound No -Current Size (cm) - Length 0.5 -Current Size (cm) - Width 0.5 -Current Size (cm) - Depth 0.1 -Total Square Cm 0.25 -Photo Taken No -Epithelialization None Present -Tunneling No -Undermining/Tunneling No -Circular Undermining No -Exudate Amt Medium -Exudate Type Serosanguineous -Wound Margin Flat & Intact -Granulation Amt Medium (34-66%) -Granulation Quality N/A -Slough/Fibrin Yes -Necrosis Amt Large (67-100%) -Necrotic Tissue Type Adherent Slough -Structure Exposed N/A -Texture (Abiola-wound Skin Appearance) No Abnormality, Assessed -Moisture (Abiola-wound Skin Appearance No Abnormality, ) Assessed -Color (Abiola-wound Skin Appearance) No Abnormality, Assessed -Temperature (Abiola-wound Skin No Abnormality Appearance) (Pt Warm) -Tenderness on Palpation (Abiola-wound Yes Skin Appearance) -Ulcer Cleansing Rinsed/ Irrigated with Saline -Foul Odor after Cleansing No -Anesthetic Used 4% Lidocaine Solution #5 right heel -Combined with other wound No -Current Size (cm) - Length 1.8 -Current Size (cm) - Width 1.5 -Current Size (cm) - Depth 0.2 -Total Square Cm 2.70 -Photo Taken Yes -Epithelialization None Present -Tunneling No -Undermining/Tunneling No -Circular Undermining No -Exudate Amt Medium -Exudate Type Serosanguineous -Wound Margin Flat & Intact -Granulation Amt None Present (0 %) -Granulation Quality N/A -Slough/Fibrin Yes -Necrosis Amt Large (67-100%) -Necrotic Tissue Type Adherent Slough -Structure Exposed N/A -Texture (Abiola-wound Skin Appearance) No Abnormality, Assessed -Moisture (Abiola-wound Skin Appearance No Abnormality, ) Assessed -Color (Abiola-wound Skin Appearance) No Abnormality, Assessed -Temperature (Abiola-wound Skin No Abnormality Appearance) (Pt Warm) -Tenderness on Palpation (Abiola-wound Yes Skin Appearance) -Ulcer Cleansing Rinsed/ Irrigated with Saline -Foul Odor after Cleansing No -Anesthetic Used 4% Lidocaine Solution [Edema Assessment] -Lower Limb Edema Present No WC - Nurse 2 - General Ulcer CM Notes Start: 10/28/20 14:50 Freq: Status: Active Protocol: Activity Type Activity Date Activity User E-Sign Co-Sign Detail Recorded Client Recorded Date Recorded By Document 11/04/20 12:13 PL [id number] 11/04/20 12:16 PL 11/04/20 12:13 Wound Center Nurse 2 [Procedure/Treatment] #7 sacral -Time 10:55 -Correct Patient Yes -Correct Side, Site, Position Yes -Correct Procedure Yes -Procedure Performed Yes -Type of Procedure Debridement -Clinical Debridement Subcutaneous -Tissue Removed Subcutaneous -Post Debridement (cm) - Length 2.7 -Post Debridement (cm) - Width 2.8 -Post Debridement (cm) - Depth 0.1 -Total Square (Post) (cm) 7.56 -Area of Debridement (cm) - Length 2.7 -Area of Debridement (cm) - Width 2.8 -Total Square (Area) (cm) 7.56 -Tunneling No -Undermining/Tunneling No -Circular Undermining No -Wound/Ulcer Outcome Not Healed -Ulcer Cleansing Rinsed/ Irrigated with Saline -Foul Odor after Cleansing No -Bioengineered Tissue No -Bleeding Controlled with Pressure -Treatment Response Procedure Tolerated Well -Debridement - Subq, 1st 20sq cm No #6 left ankle -Time 10:55 -Correct Patient Yes -Correct Side, Site, Position Yes -Correct Procedure Yes -Procedure Performed Yes -Type of Procedure Debridement -Clinical Debridement Subcutaneous -Tissue Removed Subcutaneous -Post Debridement (cm) - Length 0.5 -Post Debridement (cm) - Width 0.5 -Post Debridement (cm) - Depth 0.1 -Total Square (Post) (cm) 0.25 -Area of Debridement (cm) - Length 0.5 -Area of Debridement (cm) - Width 0.5 -Total Square (Area) (cm) 0.25 -Tunneling No -Undermining/Tunneling No -Circular Undermining No -Wound/Ulcer Outcome Not Healed -Ulcer Cleansing Rinsed/ Irrigated with Saline -Foul Odor after Cleansing No -Bioengineered Tissue No -Debridement - Subq, 1st 20sq cm No #5 right heel -Time 10:55 -Correct Patient Yes -Correct Side, Site, Position Yes -Correct Procedure Yes -Procedure Performed Yes -Type of Procedure Debridement -Clinical Debridement Subcutaneous -Tissue Removed Subcutaneous -Post Debridement (cm) - Length 1.8 -Post Debridement (cm) - Width 1.5 -Post Debridement (cm) - Depth 0.2 -Total Square (Post) (cm) 2.70 -Area of Debridement (cm) - Length 1.8 -Area of Debridement (cm) - Width 1.5 -Total Square (Area) (cm) 2.70 -Tunneling No -Undermining/Tunneling No -Circular Undermining No -Wound/Ulcer Outcome Not Healed -Ulcer Cleansing Rinsed/ Irrigated with Saline -Foul Odor after Cleansing No -Bioengineered Tissue No -Bleeding Controlled with Pressure -Treatment Response Procedure Tolerated Well -Debridement - Subq, 1st 20sq cm Yes [See Physician Procedure note for Specifics] Pain Scale: 0-10 Numeric [Pain] -Is Patient Pain Free? Yes WC - Nurse 3 - General Ulcer D/C NN Start: 10/28/20 14:50 Freq: Status: Active Protocol: Activity Type Activity Date Activity User E-Sign Co-Sign Detail Recorded Client Recorded Date Recorded By Document 11/04/20 11:20 [facility] [id number] 11/04/20 11:22 [facility] 11/04/20 11:20 Wound Care Nurse 3 [Wound Dressing] #7 sacral -Ulcer Cleansing Rinsed/ Irrigated with Saline -Foul Odor after Cleansing No -Primary Dressing Applied Other -Other Dressing hydrogel -Primary Dressing Covered/Secured Dry Gauze, with Secured with Tape -Other Covering drsg per graciela swan rn #6 left ankle -Ulcer Cleansing Rinsed/ Irrigated with Saline -Foul Odor after Cleansing No -Primary Dressing Applied Other -Other Dressing hydrogel -Primary Dressing Covered/Secured Dry Gauze, with Secured with Tape -Other Covering drsg per graciela swan rn #5 right heel -Ulcer Cleansing Rinsed/ Irrigated with Saline -Foul Odor after Cleansing No -Primary Dressing Applied Other -Other Dressing hydrogel -Primary Dressing Covered/Secured Dry Gauze, with Secured with Tape -Other Covering drsg denis swan rn [Post Procedure Tolerated] -Treatment Response Procedure Tolerated Well Pain Scale: 0-10 Numeric [Pain] -Is Patient Pain Free? Yes WC - Visit Discharge [Visit Discharge Information] -Discharge Condition Stable -Ambulatory Status Ambulatory -Accompanied by caregiver [Facility Notification] -Other [place] Neurological: Cranial nerves II-XII grossly intact, - - Cognitive and intellectual deficits are apparent. Psych/Mental Status: - - Despite her cognitive and intellectual deficits, the patient appeared calm and reasonably compliant and cooperative. Debridement Note Post-Debridement Measurements/Treatment WC - Nurse 2 - General Ulcer CM Notes Start: 10/28/20 14:50 Freq: Status: Active Protocol: Activity Type Activity Date Activity User E-Sign Co-Sign Detail Recorded Client Recorded Date Recorded By Document 11/04/20 12:13 PL [id number] 11/04/20 12:16 PL 11/04/20 12:13 Wound Center Nurse 2 #7 sacral -Time 10:55 -Correct Patient Yes -Correct Side, Site, Position Yes -Correct Procedure Yes -Procedure Performed Yes -Type of Procedure Debridement -Clinical Debridement Subcutaneous -Tissue Removed Subcutaneous -Post Debridement (cm) - Length 2.7 -Post Debridement (cm) - Width 2.8 -Post Debridement (cm) - Depth 0.1 -Total Square (Post) (cm) 7.56 -Area of Debridement (cm) - Length 2.7 -Area of Debridement (cm) - Width 2.8 -Total Square (Area) (cm) 7.56 -Tunneling No -Undermining/Tunneling No -Circular Undermining No -Wound/Ulcer Outcome Not Healed -Ulcer Cleansing Rinsed/ Irrigated with Saline -Foul Odor after Cleansing No -Bioengineered Tissue No -Bleeding Controlled with Pressure -Treatment Response Procedure Tolerated Well -Debridement - Subq, 1st 20sq cm No #6 left ankle -Time 10:55 -Correct Patient Yes -Correct Side, Site, Position Yes -Correct Procedure Yes -Procedure Performed Yes -Type of Procedure Debridement -Clinical Debridement Subcutaneous -Tissue Removed Subcutaneous -Post Debridement (cm) - Length 0.5 -Post Debridement (cm) - Width 0.5 -Post Debridement (cm) - Depth 0.1 -Total Square (Post) (cm) 0.25 -Area of Debridement (cm) - Length 0.5 -Area of Debridement (cm) - Width 0.5 -Total Square (Area) (cm) 0.25 -Tunneling No -Undermining/Tunneling No -Circular Undermining No -Wound/Ulcer Outcome Not Healed -Ulcer Cleansing Rinsed/ Irrigated with Saline -Foul Odor after Cleansing No -Bioengineered Tissue No -Debridement - Subq, 1st 20sq cm No #5 right heel -Time 10:55 -Correct Patient Yes -Correct Side, Site, Position Yes -Correct Procedure Yes -Procedure Performed Yes -Type of Procedure Debridement -Clinical Debridement Subcutaneous -Tissue Removed Subcutaneous -Post Debridement (cm) - Length 1.8 -Post Debridement (cm) - Width 1.5 -Post Debridement (cm) - Depth 0.2 -Total Square (Post) (cm) 2.70 -Area of Debridement (cm) - Length 1.8 -Area of Debridement (cm) - Width 1.5 -Total Square (Area) (cm) 2.70 -Tunneling No -Undermining/Tunneling No -Circular Undermining No -Wound/Ulcer Outcome Not Healed -Ulcer Cleansing Rinsed/ Irrigated with Saline -Foul Odor after Cleansing No -Bioengineered Tissue No -Bleeding Controlled with Pressure -Treatment Response Procedure Tolerated Well -Debridement - Subq, 1st 20sq cm Yes Pain Scale: 0-10 Numeric Is Patient Pain Free? Yes WC - Nurse 3 - General Ulcer D/C NN Start: 10/28/20 14:50 Freq: Status: Active Protocol: Activity Type Activity Date Activity User E-Sign Co-Sign Detail Recorded Client Recorded Date Recorded By Document 11/04/20 11:20 [facility] [id number] 11/04/20 11:22 [facility] 11/04/20 11:20 Wound Care Nurse 3 #7 sacral -Ulcer Cleansing Rinsed/ Irrigated with Saline -Foul Odor after Cleansing No -Primary Dressing Applied Other -Other Dressing hydrogel -Primary Dressing Covered/Secured with Dry Gauze, Secured with Tape -Other Covering jono swan rn #6 left ankle -Ulcer Cleansing Rinsed/ Irrigated with Saline -Foul Odor after Cleansing No -Primary Dressing Applied Other -Other Dressing hydrogel -Primary Dressing Covered/Secured with Dry Gauze, Secured with Tape -Other Covering drsg per graciela swan rn #5 right heel -Ulcer Cleansing Rinsed/ Irrigated with Saline -Foul Odor after Cleansing No -Primary Dressing Applied Other -Other Dressing hydrogel -Primary Dressing Covered/Secured with Dry Gauze, Secured with Tape -Other Covering drsg per graciela swan rn Treatment Response Procedure Tolerated Well Pain Scale: 0-10 Numeric Is Patient Pain Free? Yes WC - Visit Discharge Discharge Condition Stable Ambulatory Status Ambulatory [facility]ompanied [facility] caregiver [facility] Laterality: Right - He will Wound Grade/Stage: Category 3 Type of Debridement: Excisional debridement Anesthesia Used: 5% Lidocaine Gel Depth: Down to and including healthy tissue, in the subcutaneous layer Percentage of wound debrided: 100 Instrument Used: 5mm curette Tissue Removed: Bioburden and nonviable tissue Severity: Fat Layer Exposed Amount of bleeding with debridement: Mild Bleeding Controlled with: Compression and gauze Patient tolerated procedure well - Additional Wound Laterality: Left - Lateral malleolus Wound Grade/Stage: Category 3 Type of Debridement: Excisional debridement Anesthesia Used: 5% Lidocaine Gel Depth: Down to and including healthy tissue, in the subcutaneous layer Percentage of wound debrided: 100 Instrument Used: 5mm curette, #15 blade, Forceps Tissue Removed: Bioburden and nonviable tissue Severity: Fat Layer Exposed Bleeding Controlled with: Compression and gauze Patient tolerated procedure: Patient tolerated procedure well - Additional Wound Laterality: Not Applicable - Sacrum Wound Grade/Stage: Category 3 Type of Debridement: Excisional debridement Anesthesia Used: 5% Lidocaine Gel Depth: Down to and including healthy tissue, in the subcutaneous layer Percentage of wound debrided: 100 Instrument Used: 5mm curette Tissue Removed: Bioburden and nonviable tissue Severity: Fat Layer Exposed Amount of bleeding with debridement: Mild Bleeding Controlled with: Compression and gauze Patient tolerated procedure: Patient tolerated procedure well Assessment/Plan Active Problems Mental disability (Chronic) Behavioral disorder (Chronic) Hypertension (Chronic) Eczema (Chronic) Intellectual disability (Chronic) GERD (gastroesophageal reflux disease) (Chronic) Chronic constipation (Chronic) Hypothyroidism (Chronic) Cataracts, bilateral (Chronic) History of pituitary adenoma (Chronic) 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 She is a resident of a long-term. She has developed pressure ulcerations of the left ankle, right heel, and sacral region within the last several weeks prior to presentation. These appear to be stage III pressure ulcerations. It is noted that the patient sleeps on a regular mattress. She is not very mobile, and spends a great deal of time lying in bed. Her appetite is not known to be good. She suffers from multiple medical problems, which are listed above. Plan: Offloading measures have been recommended. We have recommended a low air-loss mattress. Soft, padded heel protectors have been recommended as well, to protect the heel and ankle ulcerations. Frequent repositioning has been advised. Nutritional optimization has also been recommended, and the patient is now receiving Ensure supplements 2-3 times per day. Because of the nonviable and necrotic material at each of the 3 ulceration sites, we are to continue the use of collagenase Santyl topically to each of the sites, which will be applied on a daily basis. The patient is to return in 1 week for re-evaluation. Recent laboratory studies have been obtained, dated 10/22/2020, with results as follows: White blood count 12.7, hemoglobin 13.5, hematocrit 40.8, platelets 283,000, Kos 208, sodium 145, potassium 4.4, chloride 110, BUN 8.0, creatinine 0.62, calcium 9.6. The patient is not a smoker. Influenza vaccine was not administered today. Patient stands 5 feet 6 inches tall. She weighs 123 pounds. Her BMI is 19.9, which is normal.
== END 2020-11-06 23:59 ==
LOC: WC 10:00
PROVIDERS: Visit Provider Surgery
DX: L89.613 Pressure ulcer of right heel, stage 3 (principal); L89.523 Pressure ulcer of left ankle, stage 3; L89.153 Pressure ulcer of sacral region, stage 3; K21.9 Gastro-esophageal reflux disease without esophagitis; I10 Essential (primary) hypertension; G21.19 Other drug induced secondary parkinsonism; F79 Unspecified intellectual disabilities; K59.09 Other constipation; G20 Parkinson's disease; E11.36 Type 2 diabetes mellitus with diabetic cataract; E03.9 Hypothyroidism, unspecified; Z86.14 Personal history of Methicillin resistant Staphylococcus aureus infection; Z86.018 Personal history of other benign neoplasm; Z79.899 Other long term (current) drug therapy
CPT/HCPCS: 11042; 99213; G0463

== ENCOUNTER 2020-12-02 09:00 | Outpatient (RCR) | payer MEDICAID, SELFPAY ==
[2020-11-07 00:04] VITALS: BP 105/70; PULSE 108; RESP 16; TEMP 35.9
[2020-11-11 09:19] VITALS: BP 148/76; PULSE 101; RESP 16; TEMP 35.9; BMI 22.8
--- NOTE | 2020-11-11 09:58 | HP.PCM_ITS ---
(1) Mental disability Status: Chronic Code(s): F79 - Unspecified intellectual disabilities (2) Behavioral disorder Status: Chronic (3) Hypertension Status: Chronic Code(s): I10 - Essential (primary) hypertension (4) Eczema Status: Chronic Code(s): L30.9 - Dermatitis, unspecified (5) Intellectual disability Status: Chronic Code(s): F79 - Unspecified intellectual disabilities (6) GERD (gastroesophageal reflux disease) Status: Chronic Code(s): K21.9 - Gastro-esophageal reflux disease without esophagitis (7) Chronic constipation Status: Chronic Code(s): K59.09 - Other constipation (8) Hypothyroidism Status: Chronic Code(s): E03.9 - Hypothyroidism, unspecified (9) Cataracts, bilateral Status: Chronic Code(s): H26.9 - Unspecified cataract (10) History of pituitary adenoma Status: Chronic Code(s): Z86.018 - Personal history of other benign neoplasm (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 Code(s): G21.19 - Other drug induced secondary parkinsonism (12) Pressure ulcer of left ankle Status: Chronic Qualifiers: Pressure injury stage: stage 3 Code(s): L89.529 - Pressure ulcer of left ankle, unspecified stage (13) Pressure ulcer of right heel Status: Chronic Qualifiers: Pressure injury stage: stage 3 Qualified Code(s): L89.613 - Pressure ulcer of right heel, stage 3 Code(s): L89.619 - Pressure ulcer of right heel, unspecified stage (14) Pressure ulcer of sacral region Status: Chronic Qualifiers: Pressure injury stage: stage 3 Code(s): L89.159 - Pressure ulcer of sacral region, unspecified stage History of Present Illness Date of Service: 11/11/20 Chief Complaint: Multiple pressure ulcerations History of Wound: This is a 60-year-old female who suffers from cognitive and intellectual disability, and who is a resident of a [facility] with [facility] other residents. She has developed pressure ulcerations on the right heel, left lateral malleolus, and sacrum. These had been present for several weeks. It was learned that the patient spends a great deal of time in bed. She is not very mobile. She sleeps on a regular mattress. Her appetite is described as not good. She is also incontinent of urine. She is also known to be a patch washer with respect to her wounds and scabs. The patient has been previously treated for an ulceration of the right ankle in November 2019, at which time she was diagnosed with a MRSA infection. Also of note, the patient was recently diagnosed with Covid, and is now recovered. 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) Pressure ulcer of left ankle (Chronic) Pressure ulcer of right heel (Chronic) Pressure ulcer of sacral region (Chronic) Surgical History: no surgical history Allergies/Adverse Reactions: Allergies No Known Allergies Allergy (Verified 11/16/19 11:11) Home Medications: Ambulatory Orders Medication Instructions Recorded Atenolol 25 mg PO DAILY 11/16/19 Cetirizine HCl [All Day Allergy] 10 mg PO DAILY 11/16/19 Clozapine [Clozapine Odt] 150 mg PO BID 11/16/19 Lactulose [Constulose] 60 ml PO BID 11/16/19 Levothyroxine [Synthroid] 75 mcg PO DAILY 11/16/19 Magnesium Citrate [Citrate of 296 ml PO QWEEK 11/16/19 Magnesia] Sennosides/Docusate Sodium [Senna 1 ea PO BID 11/16/19 Plus 8.6-50 mg Softgel] Cephalexin [Keflex] 500 mg PO Q8 04/17/20 Multivit with Iron,Minerals 1 ea PO DAILY 04/17/20 [Multivitamins with Iron] Hydrocortisone Acetate Cream 1 applic RECTAL QHS PRN PRN 11/04/20 [Anusol Hc] Mirtazapine 7.5 mg PO QHS 11/04/20 Nut.tx.gluc.intoler,Lac-Fr,Soy 237 ml PO TID 11/04/20 [Glucerna] Pantoprazole Sodium 40 mg PO DAILY 11/04/20 Smoking Status: Never smoker Tobacco Use: Non-smoker Review of Systems Constitutional: Denies: Chills, Fever, Weight Change Eyes: Denies: Pain, Vision Change HEENT: Denies: Difficulty Hearing, Difficulty Swallowing, Sinus Congestion Cardiovascular: Denies: Chest Pain, Palpitations Respiratory: Denies: Cough, Shortness of Breath Gastrointestinal: Denies: Diarrhea, Nausea, Vomiting Genitourinary: Denies: Dysuria, Hematuria Endocrine: Denies: Heat/ Cold Intolerance, Polydipsia, Polyuria Hematologic/ Lymphatic: Denies: Easy Bruising, Easy Bleeding - Physical Exam Vital Signs Temp Pulse Resp BP 96.6 F L 101 H 16 148/76 H 11/11/20 09:19 11/11/20 09:19 11/11/20 09:19 11/11/20 09:19 General: Alert, Cooperative, No apparent distress, Well developed, Well nourished, - - Cognitive disabilities are noted HEENT: Atraumatic, PERRLA, EOMI, Normocephalic Oral: Moist Mucosa Neck: No JVD Lungs: Normal air movement Abdomen: Non-Distended Extremities: No clubbing, No cyanosis, No edema, No Calf Tenderness Addt'l Wound Findings: An ulceration is noted on the right heel. There is no sign of infection or cellulitis. Dimensions are documented elsewhere. There is a moderate amount of bioburden and nonviable tissue. There is also an ulceration on the left lateral malleolus. There is no sign of infection or cellulitis. Dimensions are documented elsewhere. There is a moderate amount of bioburden and nonviable tissue. There is also an ulceration on the sacral area. Dimensions are documented elsewhere. There is no sign of infection or cellulitis. There is a moderate amount of bioburden and nonviable tissue. Skin: No rashes Wound Measurements and Assessment WC - Nurse 1 - General Ulcer Measurement Start: 11/11/20 09:19 Freq: Status: Active Protocol: Activity Type Activity Date Activity User E-Sign Co-Sign Detail Recorded Client Recorded Date Recorded By Document 11/11/20 09:19 [facility] [id number] 11/11/20 09:33 [facility] 11/11/20 09:19 Wound Center Nurse 1 [Ulcer Assessment] #7 sacral -Combined with other wound No -Current Size (cm) - Length 2.4 -Current Size (cm) - Width 2.4 -Current Size (cm) - Depth 0.2 -Total Square Cm 5.76 -Photo Taken No -Epithelialization None Present -Tunneling No -Undermining/Tunneling No -Circular Undermining No -Exudate Amt Small -Exudate Type Serosanguineous -Wound Margin Distinct, Outline Attached -Granulation Amt Medium (34-66%) -Granulation Quality Pale,[place] -Slough/Fibrin Yes -Necrosis Amt Medium (34-66%) -Necrotic Tissue Type Adherent Slough -Texture (Abiola-wound Skin Appearance) Assessed, Scarring -Moisture (Abiola-wound Skin Appearance Assessed, ) Maceration -Color (Abiola-wound Skin Appearance) Assessed, Erythema,Palor -Temperature (Abiola-wound Skin No Abnormality Appearance) (Pt Warm) -Tenderness on Palpation (Abiola-wound Yes Skin Appearance) -Ulcer Cleansing Rinsed/ Irrigated with Saline -Foul Odor after Cleansing No -Anesthetic Used 4% Lidocaine Solution #6 left ankle -Combined with other wound No -Current Size (cm) - Length 0.7 -Current Size (cm) - Width 0.6 -Current Size (cm) - Depth 0.2 -Total Square Cm 0.42 -Photo Taken No -Epithelialization None Present -Tunneling No -Undermining/Tunneling No -Circular Undermining No -Exudate Amt Small -Exudate Type Serous -Wound Margin Distinct, Outline Attached -Granulation Amt Small (1-33%) -Granulation Quality [place] -Slough/Fibrin Yes -Necrosis Amt Large (67-100%) -Necrotic Tissue Type Adherent Slough -Texture (Abiola-wound Skin Appearance) Assessed, Scarring -Moisture (Abiola-wound Skin Appearance Assessed ) -Color (Abiola-wound Skin Appearance) Assessed, Erythema -Temperature (Abiola-wound Skin No Abnormality Appearance) (Pt Warm) -Tenderness on Palpation (Abiola-wound Yes Skin Appearance) -Ulcer Cleansing Rinsed/ Irrigated with Saline -Foul Odor after Cleansing No -Anesthetic Used 4% Lidocaine Solution #5 right heel -Combined with other wound No -Current Size (cm) - Length 1.5 -Current Size (cm) - Width 1.6 -Current Size (cm) - Depth 0.4 -Total Square Cm 2.40 -Photo Taken No -Epithelialization None Present -Tunneling No -Undermining/Tunneling No -Circular Undermining No -Exudate Amt Medium -Exudate Type Serosanguineous -Wound Margin Distinct, Outline Attached -Granulation Amt Small (1-33%) -Granulation Quality [place] -Slough/Fibrin Yes -Necrosis Amt Large (67-100%) -Necrotic Tissue Type Adherent Slough -Texture (Abiola-wound Skin Appearance) Assessed, Scarring -Moisture (Abiola-wound Skin Appearance Assessed, ) Maceration -Color (Abiola-wound Skin Appearance) Assessed, Erythema,Palor -Temperature (Abiola-wound Skin No Abnormality Appearance) (Pt Warm) -Tenderness on Palpation (Abiola-wound Yes Skin Appearance) -Ulcer Cleansing Rinsed/ Irrigated with Saline -Foul Odor after Cleansing No -Anesthetic Used 4% Lidocaine Solution Neurological: Cranial nerves II-XII grossly intact Psych/Mental Status: Irrational Behavior, Restless, - - Cognitive and affective disorders are noted. Debridement Note Laterality: Right - Heel Type of Debridement: Excisional debridement Anesthesia Used: 5% Lidocaine Gel Depth: Down to and including healthy tissue, in the subcutaneous layer Percentage of wound debrided: 100 Instrument Used: 5mm curette Tissue Removed: Bioburden and nonviable tissue Severity: Fat Layer Exposed Amount of bleeding with debridement: Mild Bleeding Controlled with: Compression and gauze Patient tolerated procedure well - Additional Wound Laterality: Left - Lateral malleolus Type of Debridement: Excisional debridement Anesthesia Used: 5% Lidocaine Gel Depth: Down to and including healthy tissue, in the subcutaneous layer Percentage of wound debrided: 100 Instrument Used: 5mm curette Tissue Removed: Bioburden and nonviable tissue Severity: Fat Layer Exposed Amount of bleeding with debridement: Mild Bleeding Controlled with: Compression and gauze Patient tolerated procedure: Patient tolerated procedure well - Additional Wound Laterality: Not Applicable - Sacrum Type of Debridement: Excisional debridement Anesthesia Used: 5% Lidocaine Gel Depth: Down to and including healthy tissue, in the subcutaneous layer Percentage of wound debrided: 100 Instrument Used: 5mm curette Tissue Removed: Bioburden and nonviable tissue Amount of bleeding with debridement: Mild Bleeding Controlled with: Compression and gauze Patient tolerated procedure: Patient tolerated procedure well Assessment/Plan Assessment: This is a 60-year-old female with intellectual and cognitive disabilities. She is a resident of a [facility]. She has developed pressure ulcerations of the left ankle, right heel, and sacral region within the several weeks prior to presentation. These appear to be stage III pressure ulcerations. It is noted that the patient sleeps on a regular mattress. She is not very mobile, and spends a great deal of time lying in bed. Her appetite is not known to be good. She suffers from multiple medical problems, which are listed above. Plan: Offloading measures have been recommended. We have recommended a low air- loss mattress, which has been obtained. Soft, padded heel protectors have been recommended as well, to protect the heel and ankle ulcerations. Frequent repositioning has been advised. Nutritional optimization has also been recommended, and the patient is now receiving Ensure supplements 2-3 times per day. Because of the nonviable and necrotic material at each of the 3 ulceration sites, we are to continue the use of collagenase Santyl topically to each of the sites, which will be applied on a daily basis. There has been some improvement in the last 2 weeks, particularly with respect to the ulcerations of the right heel and left lateral malleolus. The patient is to return in 1 week for re- evaluation. Recent laboratory studies have been obtained, dated 10/22/2020, with results as follows: White blood count 12.7, hemoglobin 13.5, hematocrit 40.8, platelets 283,000, Kos 208, sodium 145, potassium 4.4, chloride 110, BUN 8.0, creatinine 0.62, calcium 9.6. The patient is not a smoker. Influenza vaccine was not administered today. Patient stands 5 feet 6 inches tall. She weighs 123 pounds. Her BMI is 19.9, which is normal. Total time: 29 minutes.
[2020-11-18 09:12] VITALS: BP 136/89; PULSE 89; TEMP 35.5; BMI 22.8
--- NOTE | 2020-11-18 12:06 | PCM.WC.HP ---
(1) Mental disability Status: Chronic Code(s): F79 - Unspecified intellectual disabilities (2) Behavioral disorder Status: Chronic (3) Hypertension Status: Chronic Code(s): I10 - Essential (primary) hypertension (4) Eczema Status: Chronic Code(s): L30.9 - Dermatitis, unspecified (5) Intellectual disability Status: Chronic Code(s): F79 - Unspecified intellectual disabilities (6) GERD (gastroesophageal reflux disease) Status: Chronic Code(s): K21.9 - Gastro-esophageal reflux disease without esophagitis (7) Chronic constipation Status: Chronic Code(s): K59.09 - Other constipation (8) Hypothyroidism Status: Chronic Code(s): E03.9 - Hypothyroidism, unspecified (9) Cataracts, bilateral Status: Chronic Code(s): H26.9 - Unspecified cataract (10) History of pituitary adenoma Status: Chronic Code(s): Z86.018 - Personal history of other benign neoplasm (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 Code(s): G21.19 - Other drug induced secondary parkinsonism (12) Pressure ulcer of left ankle Status: Chronic Qualifiers: Pressure injury stage: stage 3 Code(s): L89.529 - Pressure ulcer of left ankle, unspecified stage (13) Pressure ulcer of right heel Status: Chronic Qualifiers: Pressure injury stage: stage 3 Qualified Code(s): L89.613 - Pressure ulcer of right heel, stage 3 Code(s): L89.619 - Pressure ulcer of right heel, unspecified stage (14) Pressure ulcer of sacral region Status: Chronic Qualifiers: Pressure injury stage: stage 3 Code(s): L89.159 - Pressure ulcer of sacral region, unspecified stage History of Present Illness Date of Service: 11/18/20 Chief Complaint: Multiple pressure ulcerations History of Wound: This is a 60-year-old female who suffers from cognitive and intellectual disability, and who is a resident of a senior living with 7 other residents. She has developed pressure ulcerations on the right heel, left lateral malleolus, and sacrum. These had been present for several weeks. It was learned that the patient spends a great deal of time in bed. She is not very mobile. She sleeps on a regular mattress. Her appetite is described as not good. She is also incontinent of urine. She is also known to be a cotton picker with respect to her wounds and scabs. The patient has been previously treated for an ulceration of the right ankle in November 2019, at which time she was diagnosed with a MRSA infection. Also of note, the patient was recently diagnosed with Covid, and is now recovered. 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) Pressure ulcer of left ankle (Chronic) Pressure ulcer of right heel (Chronic) Pressure ulcer of sacral region (Chronic) Surgical History: no surgical history Allergies/Adverse Reactions: Allergies No Known Allergies Allergy (Verified 11/16/19 11:11) Home Medications: Ambulatory Orders Medication Instructions Recorded Atenolol 25 mg PO DAILY 11/16/19 Cetirizine HCl [All Day Allergy] 10 mg PO DAILY 11/16/19 Clozapine [Clozapine Odt] 150 mg PO BID 11/16/19 Lactulose [Constulose] 60 ml PO BID 11/16/19 Levothyroxine [Synthroid] 75 mcg PO DAILY 11/16/19 Magnesium Citrate [Citrate of 296 ml PO QWEEK 11/16/19 Magnesia] Sennosides/Docusate Sodium [Senna 1 ea PO BID 11/16/19 Plus 8.6-50 mg Softgel] Cephalexin [Keflex] 500 mg PO Q8 04/17/20 Multivit with Iron,Minerals 1 ea PO DAILY 04/17/20 [Multivitamins with Iron] Hydrocortisone Acetate Cream 1 applic RECTAL QHS PRN PRN 11/04/20 [Anusol Hc] Mirtazapine 7.5 mg PO QHS 11/04/20 Nut.tx.gluc.intoler,Lac-Fr,Soy 237 ml PO TID 11/04/20 [Glucerna] Pantoprazole Sodium 40 mg PO DAILY 11/04/20 Smoking Status: Never smoker Tobacco Use: Non-smoker Review of Systems Constitutional: Reports: - - The patient suffers from an intellectual/cognitive disability.. Denies: Chills, Fever, Weight Change Eyes: Denies: Pain, Vision Change HEENT: Denies: Difficulty Hearing, Difficulty Swallowing, Sinus Congestion Cardiovascular: Denies: Chest Pain, Palpitations Respiratory: Denies: Cough, Shortness of Breath Gastrointestinal: Denies: Diarrhea, Nausea, Vomiting Genitourinary: Denies: Dysuria, Hematuria Endocrine: Denies: Heat/ Cold Intolerance, Polydipsia, Polyuria Hematologic/ Lymphatic: Denies: Easy Bruising, Easy Bleeding - Physical Exam Vital Signs Temp Pulse Resp BP 95.9 F L 89 16 136/89 H 11/18/20 09:12 11/18/20 09:12 11/11/20 09:19 11/18/20 09:12 General: Alert, Oriented x3, Cooperative, No apparent distress, Well developed, Well nourished, - - Cognitive disabilities are apparent. HEENT: Atraumatic, PERRLA, EOMI, Normocephalic Oral: Moist Mucosa Neck: No JVD Lungs: Normal air movement Abdomen: Non-Distended Extremities: No clubbing, No cyanosis, No edema, No Calf Tenderness Addt'l Wound Findings: The patient has a pressure ulceration on the right heel and on the left lateral malleolus. Each is generally pink, but with a moderate amount of bioburden. There is no sign of infection or cellulitis. Dimensions are documented elsewhere. There is also a pressure ulceration on the sacrum, which also demonstrates a moderate amount of bioburden. There is no sign of infection or cellulitis at this site. Dimensions are documented elsewhere. Wound Measurements and Assessment WC - Nurse 1 - General Ulcer Measurement Start: 11/11/20 09:19 Freq: Status: Active Protocol: Activity Type Activity Date Activity User E-Sign Co-Sign Detail Recorded Client Recorded Date Recorded By Document 11/18/20 09:12 KR [id number] 11/18/20 09:16 [email or web address] 11/18/20 09:12 Wound Center Nurse 1 [Ulcer Assessment] #7 sacral -Current Size (cm) - Length 2.1 -Current Size (cm) - Width 1.5 -Current Size (cm) - Depth 0.2 -Total Square Cm 3.15 -Exudate Amt Medium -Exudate Type Serosanguineous -Wound Margin Distinct, Outline Attached -Granulation Amt Medium (34-66%) -Granulation Quality Red -Necrosis Amt Medium (34-66%) -Necrotic Tissue Type Adherent Slough -Texture (Abiola-wound Skin Appearance) Assessed, Scarring -Moisture (Abiola-wound Skin Appearance No Abnormality, ) Assessed -Color (Abiola-wound Skin Appearance) No Abnormality, Assessed -Temperature (Abiola-wound Skin No Abnormality Appearance) (Pt Warm) -Tenderness on Palpation (Abiola-wound No Skin Appearance) -Ulcer Cleansing Rinsed/ Irrigated with Saline -Foul Odor after Cleansing No -Anesthetic Used 4% Lidocaine Solution #6 left ankle -Current Size (cm) - Length 0.6 -Current Size (cm) - Width 0.6 -Current Size (cm) - Depth 0.1 -Total Square Cm 0.36 -Exudate Amt Small -Exudate Type Serosanguineous -Wound Margin Distinct, Outline Attached -Necrosis Amt Small (1-33%) -Necrotic Tissue Type Adherent Slough -Texture (Abiola-wound Skin Appearance) Assessed, Scarring -Moisture (Abiola-wound Skin Appearance No Abnormality, ) Assessed -Color (Abiola-wound Skin Appearance) No Abnormality, Assessed -Temperature (Abiola-wound Skin No Abnormality Appearance) (Pt Warm) -Tenderness on Palpation (Abiola-wound No Skin Appearance) -Ulcer Cleansing Rinsed/ Irrigated with Saline -Foul Odor after Cleansing No -Anesthetic Used 4% Lidocaine Solution #5 right heel -Current Size (cm) - Length 1.6 -Current Size (cm) - Width 1.5 -Current Size (cm) - Depth 0.4 -Total Square Cm 2.40 -Exudate Amt Medium -Exudate Type Serosanguineous -Wound Margin Distinct, Outline Attached -Granulation Amt Small (1-33%) -Granulation Quality Red -Necrosis Amt Small (1-33%) -Necrotic Tissue Type Adherent Slough -Texture (Abiola-wound Skin Appearance) Assessed, Scarring -Moisture (Abiola-wound Skin Appearance No Abnormality, ) Assessed -Color (Abiola-wound Skin Appearance) No Abnormality, Assessed -Temperature (Abiola-wound Skin No Abnormality Appearance) (Pt Warm) -Tenderness on Palpation (Abiola-wound No Skin Appearance) -Ulcer Cleansing Rinsed/ Irrigated with Saline -Foul Odor after Cleansing No -Anesthetic Used 4% Lidocaine Solution WC - Nurse 2 - General Ulcer CM Notes Start: 11/11/20 09:19 Freq: Status: Active Protocol: Activity Type Activity Date Activity User E-Sign Co-Sign Detail Recorded Client Recorded Date Recorded By Document 11/18/20 09:27 MW [id number] 11/18/20 09:36 MW 11/18/20 09:27 Wound Center Nurse 2 [Procedure/Treatment] #7 sacral -Time 09:29 -Correct Patient Yes -Correct Side, Site, Position Yes -Type of Procedure Debridement -Clinical Debridement Subcutaneous -Tissue Removed Subcutaneous -Post Debridement (cm) - Length 2.2 -Post Debridement (cm) - Width 1.6 -Post Debridement (cm) - Depth 0.2 -Total Square (Post) (cm) 3.52 -Area of Debridement (cm) - Length 2.2 -Area of Debridement (cm) - Width 1.6 -Total Square (Area) (cm) 3.52 -Tunneling No -Undermining/Tunneling No -Circular Undermining No -Wound/Ulcer Outcome Not Healed -Ulcer Cleansing Rinsed/ Irrigated with Saline -Foul Odor after Cleansing No -Bioengineered Tissue No -Bleeding Controlled with Pressure -Offloading No -Treatment Response Procedure Tolerated Well -Debridement - Subq, 1st 20sq cm Yes #6 left ankle -Time 09:30 -Correct Patient Yes -Correct Side, Site, Position Yes -Correct Procedure Yes -Procedure Performed Yes -Type of Procedure Debridement -Clinical Debridement Subcutaneous -Tissue Removed Subcutaneous -Post Debridement (cm) - Length 0.7 -Post Debridement (cm) - Width 0.7 -Post Debridement (cm) - Depth 0.1 -Total Square (Post) (cm) 0.49 -Area of Debridement (cm) - Length 0.7 -Area of Debridement (cm) - Width 0.7 -Total Square (Area) (cm) 0.49 -Tunneling No -Undermining/Tunneling No -Circular Undermining No -Wound/Ulcer Outcome Not Healed -Ulcer Cleansing Rinsed/ Irrigated with Saline -Foul Odor after Cleansing No -Bioengineered Tissue No -Bleeding Controlled with Pressure -Offloading No -Treatment Response Procedure Tolerated Well -Debridement - Subq, 1st 20sq cm No #5 right heel -Time 09:30 -Correct Patient Yes -Correct Side, Site, Position Yes -Correct Procedure Yes -Procedure Performed Yes -Type of Procedure Debridement -Clinical Debridement Subcutaneous -Tissue Removed Subcutaneous -Post Debridement (cm) - Length 1.6 -Post Debridement (cm) - Width 1.6 -Post Debridement (cm) - Depth 0.3 -Total Square (Post) (cm) 2.56 -Area of Debridement (cm) - Length 1.6 -Area of Debridement (cm) - Width 1.6 -Total Square (Area) (cm) 2.56 -Tunneling No -Undermining/Tunneling No -Circular Undermining No -Wound/Ulcer Outcome Not Healed -Ulcer Cleansing Rinsed/ Irrigated with Saline -Foul Odor after Cleansing No -Bioengineered Tissue No -Bleeding Controlled with Pressure -Offloading No -Treatment Response Procedure Tolerated Well -Debridement - Subq, 1st 20sq cm No [See Physician Procedure note for Specifics] Pain Scale: 0-10 Numeric [Pain] -Is Patient Pain Free? Yes WC - Nurse 3 - General Ulcer D/C NN Start: 11/11/20 09:19 Freq: Status: Active Protocol: Activity Type Activity Date Activity User E-Sign Co-Sign Detail Recorded Client Recorded Date Recorded By Document 11/18/20 09:39 MW [id number] 11/18/20 09:41 MW 11/18/20 09:39 Wound Care Nurse 3 [Wound Dressing] #7 sacral -Ulcer Cleansing Rinsed/ Irrigated with Saline -Foul Odor after Cleansing No -Negative Pressure Wound Therapy N/A -Other Dressing HYDROGEL -Primary Dressing Covered/Secured Dry Gauze, with Secured with Tape #6 left ankle -Ulcer Cleansing Rinsed/ Irrigated with Saline -Foul Odor after Cleansing No -Negative Pressure Wound Therapy N/A -Other Dressing HYDROGEL -Primary Dressing Covered/Secured Dry Gauze, with Secured with Tape #5 right heel -Ulcer Cleansing Rinsed/ Irrigated with Saline -Foul Odor after Cleansing No -Negative Pressure Wound Therapy N/A -Other Dressing HYDROGEL -Primary Dressing Covered/Secured Dry Gauze, with Secured with Tape [Post Procedure Tolerated] -Treatment Response Procedure Tolerated Well Teaching: Wound Center [Wound Center Education] (Items with an * have Printed Materials Available- Please identify what is given to patient under the Teaching materials given to patient and caregiver Section. Dressing Your Wound -Person Taught Patient -Teaching Method Discussion -Response to teaching Verbalize understanding WC - Visit Discharge [Visit Discharge Information] -Discharge Condition Stable -Ambulatory Status Walker -Transportation Private Auto -Accompanied by CAREGIVER -Medication Reconcilliation completed No & provided to patient/care provider -Clinical Summary of Care Provided Yes Neurological: Cranial nerves II-XII grossly intact Psych/Mental Status: Normal Affect, - - Cognitive disabilities are noted. Debridement Note Post-Debridement Measurements/Treatment WC - Nurse 2 - General Ulcer CM Notes Start: 11/11/20 09:19 Freq: Status: Active Protocol: Activity Type Activity Date Activity User E-Sign Co-Sign Detail Recorded Client Recorded Date Recorded By Document 11/11/20 11:52 PL [id number] 11/11/20 11:56 PL Document 11/18/20 09:27 MW [id number] 11/18/20 09:36 MW 11/11/20 11/18/20 11:52 09:27 Wound Center Nurse 2 #7 sacral -Time : 09:29 -Correct Patient Yes Yes -Correct Side, Site, Position Yes Yes -Correct Procedure Yes -Procedure Performed Yes -Type of Procedure Debridement Debridement -Clinical Debridement Subcutaneous Subcutaneous -Tissue Removed Subcutaneous Subcutaneous -Post Debridement (cm) - Length 2.4 2.2 -Post Debridement (cm) - Width 2.4 1.6 -Post Debridement (cm) - Depth 0.2 0.2 -Total Square (Post) (cm) 5.76 3.52 -Area of Debridement (cm) - Length 2.4 2.2 -Area of Debridement (cm) - Width 2.4 1.6 -Total Square (Area) (cm) 5.76 3.52 -Tunneling No No -Undermining/Tunneling No No -Circular Undermining No No -Wound/Ulcer Outcome Not Healed Not Healed -Ulcer Cleansing Rinsed/ Rinsed/ Irrigated with Irrigated with Saline Saline -Foul Odor after Cleansing No No -Bioengineered Tissue No No -Bleeding Controlled with Pressure -Offloading No -Treatment Response Procedure Tolerated Well -Debridement - Subq, 1st 20sq cm No Yes #6 left ankle -Time : 09:30 -Correct Patient Yes Yes -Correct Side, Site, Position Yes Yes -Correct Procedure Yes Yes -Procedure Performed Yes Yes -Type of Procedure Debridement Debridement -Clinical Debridement Subcutaneous Subcutaneous -Tissue Removed Subcutaneous Subcutaneous -Post Debridement (cm) - Length 0.7 0.7 -Post Debridement (cm) - Width 0.6 0.7 -Post Debridement (cm) - Depth 0.2 0.1 -Total Square (Post) (cm) 0.42 0.49 -Area of Debridement (cm) - Length 0.7 0.7 -Area of Debridement (cm) - Width 0.6 0.7 -Total Square (Area) (cm) 0.42 0.49 -Tunneling No No -Undermining/Tunneling No No -Circular Undermining No No -Wound/Ulcer Outcome Not Healed Not Healed -Ulcer Cleansing Rinsed/ Rinsed/ Irrigated with Irrigated with Saline Saline -Foul Odor after Cleansing No No -Bioengineered Tissue No No -Bleeding Controlled with Pressure -Offloading No -Treatment Response Procedure Tolerated Well -Debridement - Subq, 1st 20sq cm No No #5 right heel -Time 09:43 09:30 -Correct Patient Yes Yes -Correct Side, Site, Position Yes Yes -Correct Procedure Yes Yes -Procedure Performed Yes Yes -Type of Procedure Debridement Debridement -Clinical Debridement Subcutaneous Subcutaneous -Tissue Removed Subcutaneous Subcutaneous -Post Debridement (cm) - Length 1.5 1.6 -Post Debridement (cm) - Width 1.6 1.6 -Post Debridement (cm) - Depth 0.4 0.3 -Total Square (Post) (cm) 2.40 2.56 -Area of Debridement (cm) - Length 1.5 1.6 -Area of Debridement (cm) - Width 1.6 1.6 -Total Square (Area) (cm) 2.40 2.56 -Tunneling No No -Undermining/Tunneling No No -Circular Undermining No No -Wound/Ulcer Outcome Not Healed Not Healed -Ulcer Cleansing Rinsed/ Rinsed/ Irrigated with Irrigated with Saline Saline -Foul Odor after Cleansing No No -Bioengineered Tissue No No -Bleeding Controlled with Pressure -Offloading No -Treatment Response Procedure Tolerated Well -Debridement - Subq, 1st 20sq cm Yes No Pain Scale: 0-10 Numeric Is Patient Pain Free? Yes Yes WC - Nurse 3 - General Ulcer D/C NN Start: 11/11/20 09:19 Freq: Status: Active Protocol: Activity Type Activity Date Activity User E-Sign Co-Sign Detail Recorded Client Recorded Date Recorded By Document 11/11/20 11:52 PL [id number] 11/11/20 11:56 PL Document 11/18/20 09:39 MW [id number] 11/18/20 09:41 MW 11/11/20 11/18/20 11:52 09:39 Is Patient Pain Free? Yes Teaching: Wound Center Dressing Your Wound -Person Taught Patient -Teaching Method Discussion -Response to teaching Verbalize understanding Wound Care Nurse 3 #7 sacral -Ulcer Cleansing Rinsed/ Rinsed/ Irrigated with Irrigated with Saline Saline -Foul Odor after Cleansing No No -Negative Pressure Wound Therapy N/A -Other Dressing Hydrogel, gauze HYDROGEL , tape -Primary Dressing Covered/Secured with Dry Gauze, Secured with Tape #6 left ankle -Ulcer Cleansing Rinsed/ Rinsed/ Irrigated with Irrigated with Saline Saline -Foul Odor after Cleansing No No -Negative Pressure Wound Therapy N/A -Other Dressing Hydrogel, gauze HYDROGEL , tape -Primary Dressing Covered/Secured with Dry Gauze, Secured with Tape #5 right heel -Ulcer Cleansing Rinsed/ Rinsed/ Irrigated with Irrigated with Saline Saline -Foul Odor after Cleansing No No -Negative Pressure Wound Therapy N/A -Other Dressing Hydrogel, gauze HYDROGEL , tape -Primary Dressing Covered/Secured with Dry Gauze, Secured with Tape Treatment Response Procedure Tolerated Well WC - Visit Discharge Discharge Condition Stable Stable Ambulatory Status Wheelchair Walker Transportation Private Auto Private Auto Accompanied by CAREGIVER Medication Reconcilliation completed & No provided to patient/care provider Clinical Summary of Care Provided Yes Laterality: Right - Heel Wound Grade/Stage: Stage III Type of Debridement: Excisional debridement Anesthesia Used: 5% Lidocaine Gel Depth: Down to and including healthy tissue, in the subcutaneous layer Percentage of wound debrided: 100 Instrument Used: 5mm curette Tissue Removed: Bioburden Severity: Fat Layer Exposed Amount of bleeding with debridement: Mild Bleeding Controlled with: Compression and gauze Patient tolerated procedure well - Additional Wound Laterality: Left - Lateral malleolus Wound Grade/Stage: Stage III Type of Debridement: Excisional debridement Anesthesia Used: 5% Lidocaine Gel Depth: Down to and including healthy tissue, in the subcutaneous layer Percentage of wound debrided: 100 Instrument Used: 5mm curette Tissue Removed: Bioburden Severity: Fat Layer Exposed Amount of bleeding with debridement: Mild Bleeding Controlled with: Compression and gauze Patient tolerated procedure: Patient tolerated procedure well - Additional Wound Laterality: Not Applicable - Sacrum Wound Grade/Stage: Stage III Type of Debridement: Excisional debridement Anesthesia Used: 5% Lidocaine Gel Depth: Down to and including healthy tissue, in the subcutaneous layer Percentage of wound debrided: 100 Instrument Used: 5mm curette Tissue Removed: Bioburden Severity: Fat Layer Exposed Amount of bleeding with debridement: Mild Bleeding Controlled with: Compression and gauze Patient tolerated procedure: Patient tolerated procedure well Assessment/Plan Active Problems Mental disability (Chronic) Behavioral disorder (Chronic) Hypertension (Chronic) Eczema (Chronic) Intellectual disability (Chronic) GERD (gastroesophageal reflux disease) (Chronic) Chronic constipation (Chronic) Hypothyroidism (Chronic) Cataracts, bilateral (Chronic) History of pituitary adenoma (Chronic) 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 She is a resident of a senior living. She has developed pressure ulcerations of the left ankle, right heel, and sacral region within the several weeks prior to presentation. These appear to be stage III pressure ulcerations. It is noted that the patient sleeps on a regular mattress. She is not very mobile, and spends a great deal of time lying in bed. Her appetite is not known to be good. She suffers from multiple medical problems, which are listed above. Plan: Offloading measures have been recommended. We have recommended a low air-loss mattress, which has been obtained. Soft, padded heel protectors have been recommended as well, to protect the heel and ankle ulcerations. Frequent repositioning has been advised. Nutritional optimization has also been recommended, and the patient is now receiving Ensure supplements 2-3 times per day. Because of the nonviable and necrotic material at each of the 3 ulceration sites, we are to continue the use of collagenase Santyl topically to each of the sites, which will be applied on a daily basis. There has been some improvement in the last several weeks, particularly with respect to the ulcerations of the right heel and left lateral malleolus. The patient is to return in 1 week for re-evaluation. Recent laboratory studies have been obtained, dated 10/22/2020, with results as follows: White blood count 12.7, hemoglobin 13.5, hematocrit 40.8, platelets 283,000, Kos 208, sodium 145, potassium 4.4, chloride 110, BUN 8.0, creatinine 0.62, calcium 9.6. The patient is not a smoker. Influenza vaccine was not administered today. Patient stands 5 feet 6 inches tall. She weighs 123 pounds. Her BMI is 19.9, which is normal. Total time: 28 minutes.
[2020-12-02 08:57] VITALS: TEMP 35.6; BMI 22.8
--- NOTE | 2020-12-02 09:31 | HP.PCM_ITS ---
(1) Mental disability Status: Chronic Code(s): F79 - Unspecified intellectual disabilities (2) Behavioral disorder Status: Chronic (3) Hypertension Status: Chronic Code(s): I10 - Essential (primary) hypertension (4) Eczema Status: Chronic Code(s): L30.9 - Dermatitis, unspecified (5) Intellectual disability Status: Chronic Code(s): F79 - Unspecified intellectual disabilities (6) GERD (gastroesophageal reflux disease) Status: Chronic Code(s): K21.9 - Gastro-esophageal reflux disease without esophagitis (7) Chronic constipation Status: Chronic Code(s): K59.09 - Other constipation (8) Hypothyroidism Status: Chronic Code(s): E03.9 - Hypothyroidism, unspecified (9) Cataracts, bilateral Status: Chronic Code(s): H26.9 - Unspecified cataract (10) History of pituitary adenoma Status: Chronic Code(s): Z86.018 - Personal history of other benign neoplasm (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 Code(s): G21.19 - Other drug induced secondary parkinsonism (12) Pressure ulcer of left ankle Status: Chronic Qualifiers: Pressure injury stage: stage 3 Code(s): L89.529 - Pressure ulcer of left ankle, unspecified stage (13) Pressure ulcer of right heel Status: Chronic Qualifiers: Pressure injury stage: stage 3 Qualified Code(s): L89.613 - Pressure ulcer of right heel, stage 3 Code(s): L89.619 - Pressure ulcer of right heel, unspecified stage (14) Pressure ulcer of sacral region Status: Chronic Qualifiers: Pressure injury stage: stage 3 Code(s): L89.159 - Pressure ulcer of sacral region, unspecified stage History of Present Illness Date of Service: 12/02/20 Chief Complaint: Multiple pressure ulcerations History of Wound: This is a 60-year-old female who suffers from cognitive and intellectual disability, and who is a resident of a group. She has developed pressure ulcerations on the right heel, left lateral malleolus, and sacrum. These had been present for several weeks. It was learned that the patient spends a great deal of time in bed. She is not very mobile. She sleeps on a regular mattress. Her appetite is described as not good. She is also incontinent of urine. 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 The patient has been previously treated for an ulceration of the right ankle in November 2019, at which time she was diagnosed with a MRSA infection. Also of note, the patient was recently diagnosed with Covid, and is now recovered. 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) Pressure ulcer of left ankle (Chronic) Pressure ulcer of right heel (Chronic) Pressure ulcer of sacral region (Chronic) Surgical History: no surgical history Allergies/Adverse Reactions: Allergies No Known Allergies Allergy (Verified 11/16/19 11:11) Home Medications: Ambulatory Orders Medication Instructions Recorded Atenolol 25 mg PO DAILY 11/16/19 Cetirizine HCl [All Day Allergy] 10 mg PO DAILY 11/16/19 Clozapine [Clozapine Odt] 150 mg PO BID 11/16/19 Lactulose [Constulose] 60 ml PO BID 11/16/19 Levothyroxine [Synthroid] 75 mcg PO DAILY 11/16/19 Magnesium Citrate [Citrate of 296 ml PO QWEEK 11/16/19 Magnesia] Sennosides/Docusate Sodium [Senna 1 ea PO BID 11/16/19 Plus 8.6-50 mg Softgel] Cephalexin [Keflex] 500 mg PO Q8 04/17/20 Multivit with Iron,Minerals 1 ea PO DAILY 04/17/20 [Multivitamins with Iron] Hydrocortisone Acetate Cream 1 applic RECTAL QHS PRN PRN 11/04/20 [Anusol Hc] Mirtazapine 7.5 mg PO QHS 11/04/20 Nut.tx.gluc.intoler,Lac-Fr,Soy 237 ml PO TID 11/04/20 [Glucerna] Pantoprazole Sodium 40 mg PO DAILY 11/04/20 Smoking Status: Never smoker Tobacco Use: Non-smoker Review of Systems Constitutional: Denies: Chills, Fever, Weight Change Eyes: Denies: Pain, Vision Change HEENT: Denies: Difficulty Hearing, Difficulty Swallowing, Sinus Congestion Cardiovascular: Denies: Chest Pain, Palpitations Respiratory: Denies: Cough, Shortness of Breath Gastrointestinal: Denies: Diarrhea, Nausea, Vomiting Genitourinary: Denies: Dysuria, Hematuria Endocrine: Denies: Heat/ Cold Intolerance, Polydipsia, Polyuria Hematologic/ Lymphatic: Denies: Easy Bruising, Easy Bleeding - Physical Exam Vital Signs Temp Pulse Resp BP 96.0 F L 89 16 136/89 H 12/02/20 08:57 11/18/20 09:12 11/11/20 09:19 11/18/20 09:12 General: Alert, Cooperative, No apparent distress, Well developed, Well nourished, - - The patient is cognitively impaired. HEENT: Atraumatic, PERRLA, EOMI, Normocephalic Oral: Moist Mucosa Neck: No JVD Lungs: Normal air movement Abdomen: Non-Distended Extremities: No clubbing, No cyanosis, No edema, No Calf Tenderness Addt'l Wound Findings: The ulcerations on the right heel and the left lateral malleolus persist. They are stage III pressure ulcerations. The ulceration on the left lateral malleolus is much smaller in size, and now nearly healed. There is a small amount of bioburden. The ulceration on the right heel also demonstrates a small amount of bioburden. There is no sign of infection or cellulitis at either site. Dimensions are documented elsewhere. The pressure ulceration on the sacral area is also a stage III pressure ulcer. There is no sign of infection or cellulitis. Dimensions are documented elsewhere. There is a small amount of bioburden. Skin: No rashes Wound Measurements and Assessment WC - Nurse 1 - General Ulcer Measurement Start: 11/11/20 09:19 Freq: Status: Active Protocol: Activity Type Activity Date Activity User E-Sign Co-Sign Detail Recorded Client Recorded Date Recorded By Document 12/02/20 08:57 KR [id number] 12/02/20 09:00 KR 12/02/20 08:57 Wound Center Nurse 1 [Ulcer Assessment] #7 sacral -Current Size (cm) - Length 1.1 -Current Size (cm) - Width 1.2 -Current Size (cm) - Depth 0.2 -Total Square Cm 1.32 -Exudate Amt Small -Exudate Type Serosanguineous -Wound Margin Distinct, Outline Attached -Granulation Amt Medium (34-66%) -Granulation Quality [place] -Necrosis Amt Medium (34-66%) -Necrotic Tissue Type Adherent Slough -Texture (Abiola-wound Skin Appearance) Assessed, Scarring -Moisture (Abiola-wound Skin Appearance No Abnormality, ) Assessed -Color (Abiola-wound Skin Appearance) No Abnormality, Assessed -Temperature (Abiola-wound Skin No Abnormality Appearance) (Pt Warm) -Tenderness on Palpation (Abiola-wound No Skin Appearance) -Ulcer Cleansing Rinsed/ Irrigated with Saline -Foul Odor after Cleansing No -Anesthetic Used 4% Lidocaine Solution #6 left ankle -Current Size (cm) - Length 0.2 -Current Size (cm) - Width 0.1 -Current Size (cm) - Depth 0.1 -Total Square Cm 0.02 -Exudate Amt None Present -Wound Margin Distinct, Outline Attached -Granulation Amt Small (1-33%) -Granulation Quality Red -Necrosis Amt None Present (0 %) -Texture (Abiola-wound Skin Appearance) Assessed, Scarring -Moisture (Abiola-wound Skin Appearance No Abnormality, ) Assessed -Color (Abiola-wound Skin Appearance) No Abnormality, Assessed -Temperature (Abiola-wound Skin No Abnormality Appearance) (Pt Warm) -Tenderness on Palpation (Abiola-wound No Skin Appearance) -Ulcer Cleansing Rinsed/ Irrigated with Saline -Foul Odor after Cleansing No -Anesthetic Used 4% Lidocaine Solution #5 right heel -Current Size (cm) - Length 1.2 -Current Size (cm) - Width 1.4 -Current Size (cm) - Depth 0.3 -Total Square Cm 1.68 -Exudate Amt Medium -Exudate Type Serosanguineous -Wound Margin Distinct, Outline Attached -Granulation Amt Medium (34-66%) -Granulation Quality Red -Necrosis Amt Medium (34-66%) -Necrotic Tissue Type Adherent Slough -Texture (Abiola-wound Skin Appearance) Assessed, Scarring -Moisture (Abiola-wound Skin Appearance No Abnormality, ) Assessed -Color (Abiola-wound Skin Appearance) No Abnormality, Assessed -Temperature (Abiola-wound Skin No Abnormality Appearance) (Pt Warm) -Tenderness on Palpation (Abiola-wound No Skin Appearance) -Ulcer Cleansing Rinsed/ Irrigated with Saline -Foul Odor after Cleansing No -Anesthetic Used 4% Lidocaine Solution WC - Nurse 2 - General Ulcer CM Notes Start: 11/11/20 09:19 Freq: Status: Active Protocol: Activity Type Activity Date Activity User E-Sign Co-Sign Detail Recorded Client Recorded Date Recorded By Document 12/02/20 09:25 PL [id number] 12/02/20 09:28 PL 12/02/20 09:25 Wound Center Nurse 2 [Procedure/Treatment] #7 sacral -Time 09:10 -Correct Patient Yes -Correct Side, Site, Position Yes -Correct Procedure Yes -Procedure Performed Yes -Type of Procedure Debridement -Clinical Debridement Subcutaneous -Tissue Removed Subcutaneous -Post Debridement (cm) - Length 1.1 -Post Debridement (cm) - Width 1.2 -Post Debridement (cm) - Depth 0.2 -Total Square (Post) (cm) 1.32 -Area of Debridement (cm) - Length 1.1 -Area of Debridement (cm) - Width 1.2 -Total Square (Area) (cm) 1.32 -Tunneling No -Undermining/Tunneling No -Circular Undermining No -Wound/Ulcer Outcome Not Healed -Ulcer Cleansing Rinsed/ Irrigated with Saline -Foul Odor after Cleansing No -Bioengineered Tissue No -Debridement - Subq, 1st 20sq cm No #6 left ankle -Time 09:10 -Correct Patient Yes -Correct Side, Site, Position Yes -Correct Procedure Yes -Procedure Performed Yes -Type of Procedure Debridement -Clinical Debridement Subcutaneous -Tissue Removed Subcutaneous -Post Debridement (cm) - Length 0.2 -Post Debridement (cm) - Width 0.1 -Post Debridement (cm) - Depth 0.1 -Total Square (Post) (cm) 0.02 -Area of Debridement (cm) - Length 0.2 -Area of Debridement (cm) - Width 0.1 -Total Square (Area) (cm) 0.02 -Tunneling No -Undermining/Tunneling No -Circular Undermining No -Wound/Ulcer Outcome Not Healed -Ulcer Cleansing Rinsed/ Irrigated with Saline -Foul Odor after Cleansing No -Bioengineered Tissue No -Debridement - Subq, 1st 20sq cm No #5 right heel -Time 09:10 -Correct Patient Yes -Correct Side, Site, Position Yes -Correct Procedure Yes -Procedure Performed Yes -Type of Procedure Debridement -Clinical Debridement Subcutaneous -Tissue Removed Subcutaneous -Post Debridement (cm) - Length 1.2 -Post Debridement (cm) - Width 1.4 -Post Debridement (cm) - Depth 0.3 -Total Square (Post) (cm) 1.68 -Area of Debridement (cm) - Length 1.2 -Area of Debridement (cm) - Width 1.4 -Total Square (Area) (cm) 1.68 -Tunneling No -Undermining/Tunneling No -Circular Undermining No -Wound/Ulcer Outcome Not Healed -Ulcer Cleansing Rinsed/ Irrigated with Saline -Foul Odor after Cleansing No -Bioengineered Tissue No -Debridement - Subq, 1st 20sq cm Yes [See Physician Procedure note for Specifics] Pain Scale: 0-10 Numeric [Pain] -Is Patient Pain Free? Yes Neurological: Cranial nerves II-XII grossly intact, Neuro grossly intact Psych/Mental Status: - - Patient is cognitively impaired. Debridement Note Post-Debridement Measurements/Treatment WC - Nurse 2 - General Ulcer CM Notes Start: 11/11/20 09:19 Freq: Status: Active Protocol: Activity Type Activity Date Activity User E-Sign Co-Sign Detail Recorded Client Recorded Date Recorded By Document 11/11/20 11:52 PL [id number] 11/11/20 11:56 PL Document 11/18/20 09:27 MW [id number] 11/18/20 09:36 MW Document 12/02/20 09:25 PL [id number] 12/02/20 09:28 PL 11/11/20 11/18/20 12/02/20 11:52 09:27 09:25 Wound Center Nurse 2 #7 sacral -Time 09:43 09:29 09:10 -Correct Patient Yes Yes Yes -Correct Side, Site, Position Yes Yes Yes -Correct Procedure Yes Yes -Procedure Performed Yes Yes -Type of Procedure Debridement Debridement Debridement -Clinical Debridement Subcutaneous Subcutaneous Subcutaneous -Tissue Removed Subcutaneous Subcutaneous Subcutaneous -Post Debridement (cm) - Length 2.4 2.2 1.1 -Post Debridement (cm) - Width 2.4 1.6 1.2 -Post Debridement (cm) - Depth 0.2 0.2 0.2 -Total Square (Post) (cm) 5.76 3.52 1.32 -Area of Debridement (cm) - Length 2.4 2.2 1.1 -Area of Debridement (cm) - Width 2.4 1.6 1.2 -Total Square (Area) (cm) 5.76 3.52 1.32 -Tunneling No No No -Undermining/Tunneling No No No -Circular Undermining No No No -Wound/Ulcer Outcome Not Healed Not Healed Not Healed -Ulcer Cleansing Rinsed/ Rinsed/ Rinsed/ Irrigated with Irrigated with Irrigated with Saline Saline Saline -Foul Odor after Cleansing No No No -Bioengineered Tissue No No No -Bleeding Controlled with Pressure -Offloading No -Treatment Response Procedure Tolerated Well -Debridement - Subq, 1st 20sq cm No Yes No #6 left ankle -Time : 09:30 09:10 -Correct Patient Yes Yes Yes -Correct Side, Site, Position Yes Yes Yes -Correct Procedure Yes Yes Yes -Procedure Performed Yes Yes Yes -Type of Procedure Debridement Debridement Debridement -Clinical Debridement Subcutaneous Subcutaneous Subcutaneous -Tissue Removed Subcutaneous Subcutaneous Subcutaneous -Post Debridement (cm) - Length 0.7 0.7 0.2 -Post Debridement (cm) - Width 0.6 0.7 0.1 -Post Debridement (cm) - Depth 0.2 0.1 0.1 -Total Square (Post) (cm) 0.42 0.49 0.02 -Area of Debridement (cm) - Length 0.7 0.7 0.2 -Area of Debridement (cm) - Width 0.6 0.7 0.1 -Total Square (Area) (cm) 0.42 0.49 0.02 -Tunneling No No No -Undermining/Tunneling No No No -Circular Undermining No No No -Wound/Ulcer Outcome Not Healed Not Healed Not Healed -Ulcer Cleansing Rinsed/ Rinsed/ Rinsed/ Irrigated with Irrigated with Irrigated with Saline Saline Saline -Foul Odor after Cleansing No No No -Bioengineered Tissue No No No -Bleeding Controlled with Pressure -Offloading No -Treatment Response Procedure Tolerated Well -Debridement - Subq, 1st 20sq cm No No No #5 right heel -Time : 09:30 09:10 -Correct Patient Yes Yes Yes -Correct Side, Site, Position Yes Yes Yes -Correct Procedure Yes Yes Yes -Procedure Performed Yes Yes Yes -Type of Procedure Debridement Debridement Debridement -Clinical Debridement Subcutaneous Subcutaneous Subcutaneous -Tissue Removed Subcutaneous Subcutaneous Subcutaneous -Post Debridement (cm) - Length 1.5 1.6 1.2 -Post Debridement (cm) - Width 1.6 1.6 1.4 -Post Debridement (cm) - Depth 0.4 0.3 0.3 -Total Square (Post) (cm) 2.40 2.56 1.68 -Area of Debridement (cm) - Length 1.5 1.6 1.2 -Area of Debridement (cm) - Width 1.6 1.6 1.4 -Total Square (Area) (cm) 2.40 2.56 1.68 -Tunneling No No No -Undermining/Tunneling No No No -Circular Undermining No No No -Wound/Ulcer Outcome Not Healed Not Healed Not Healed -Ulcer Cleansing Rinsed/ Rinsed/ Rinsed/ Irrigated with Irrigated with Irrigated with Saline Saline Saline -Foul Odor after Cleansing No No No -Bioengineered Tissue No No No -Bleeding Controlled with Pressure -Offloading No -Treatment Response Procedure Tolerated Well -Debridement - Subq, 1st 20sq cm Yes No Yes Pain Scale: 0-10 Numeric Is Patient Pain Free? Yes Yes Yes WC - Nurse 3 - General Ulcer D/C NN Start: 11/11/20 09:19 Freq: Status: Active Protocol: Activity Type Activity Date Activity User E-Sign Co-Sign Detail Recorded Client Recorded Date Recorded By Document 11/11/20 11:52 PL [id number] 11/11/20 11:56 PL Document 11/18/20 09:39 MW [id number] 11/18/20 09:41 MW 11/11/20 11/18/20 11:52 09:39 Is Patient Pain Free? Yes Teaching: Wound Center Dressing Your Wound -Person Taught Patient -Teaching Method Discussion -Response to teaching Verbalize understanding Wound Care Nurse 3 #7 sacral -Ulcer Cleansing Rinsed/ Rinsed/ Irrigated with Irrigated with Saline Saline -Foul Odor after Cleansing No No -Negative Pressure Wound Therapy N/A -Other Dressing Hydrogel, gauze HYDROGEL , tape -Primary Dressing Covered/Secured with Dry Gauze, Secured with Tape #6 left ankle -Ulcer Cleansing Rinsed/ Rinsed/ Irrigated with Irrigated with Saline Saline -Foul Odor after Cleansing No No -Negative Pressure Wound Therapy N/A -Other Dressing Hydrogel, gauze HYDROGEL , tape -Primary Dressing Covered/Secured with Dry Gauze, Secured with Tape #5 right heel -Ulcer Cleansing Rinsed/ Rinsed/ Irrigated with Irrigated with Saline Saline -Foul Odor after Cleansing No No -Negative Pressure Wound Therapy N/A -Other Dressing Hydrogel, gauze HYDROGEL , tape -Primary Dressing Covered/Secured with Dry Gauze, Secured with Tape Treatment Response Procedure Tolerated Well WC - Visit Discharge Discharge Condition Stable Stable Ambulatory Status Wheelchair Walker Transportation Private Auto Private Auto Accompanied by CAREGIVER Medication Reconcilliation completed & No provided to patient/care provider Clinical Summary of Care Provided Yes Laterality: Right - Heel Type of Debridement: Excisional debridement Anesthesia Used: 5% Lidocaine Gel Depth: Down to and including healthy tissue, in the subcutaneous layer Percentage of wound debrided: 100 Instrument Used: 5mm curette Tissue Removed: Bioburden Severity: Fat Layer Exposed Amount of bleeding with debridement: Mild Bleeding Controlled with: Compression and gauze Patient tolerated procedure well - Additional Wound Laterality: Left - Lateral malleolus Type of Debridement: Excisional debridement Anesthesia Used: 5% Lidocaine Gel Depth: Down to and including healthy tissue, in the subcutaneous layer Percentage of wound debrided: 100 Instrument Used: 5mm curette Tissue Removed: Bioburden Severity: Fat Layer Exposed Amount of bleeding with debridement: Mild Bleeding Controlled with: Compression and gauze Patient tolerated procedure: Patient tolerated procedure well - Additional Wound Laterality: Not Applicable - Sacrum in the midline Type of Debridement: Excisional debridement Anesthesia Used: 5% Lidocaine Gel Depth: Down to and including healthy tissue, in the subcutaneous layer Percentage of wound debrided: 100 Instrument Used: 5mm curette Tissue Removed: Bioburden Severity: Fat Layer Exposed Amount of bleeding with debridement: Mild Bleeding Controlled with: Compression and gauze Patient tolerated procedure: Patient tolerated procedure well Assessment/Plan Active Problems Mental disability (Chronic) Behavioral disorder (Chronic) Hypertension (Chronic) Eczema (Chronic) Intellectual disability (Chronic) GERD (gastroesophageal reflux disease) (Chronic) Chronic constipation (Chronic) Hypothyroidism (Chronic) Cataracts, bilateral (Chronic) History of pituitary adenoma (Chronic) 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 She is a resident of a nursing home. She has developed pressure ulcerations of the left lateral ankle, right heel, and sacral region within the several weeks prior to presentation. These appear to be stage III pressure ulcerations. It is noted that the patient sleeps on a regular mattress. She is not very mobile, and spends a great deal of time lying in bed. Her appetite is not known to be good. She suffers from multiple medical problems, which are listed above. Plan: Offloading measures have been recommended. We have recommended a low air- loss mattress. Soft, padded heel protectors have been recommended as well, to protect the heel and ankle ulcerations. Frequent repositioning has been advised. Nutritional optimization has also been recommended, and the patient is now receiving nutritional supplements 2-3 times per day. Because of the nonviable and necrotic material at each of the 3 ulceration sites, we are to continue the use of collagenase Santyl topically to each of the sites, which will be applied on a daily basis. There has been some improvement in the last several weeks, particularly with respect to the ulcerations of the right heel and left lateral malleolus. The patient is to return in 1 week for re- evaluation. Recent laboratory studies have been obtained, dated 10/22/2020, with results as follows: White blood count 12.7, hemoglobin 13.5, hematocrit 40.8, platelets 283,000, Kos 208, sodium 145, potassium 4.4, chloride 110, BUN 8.0, creatinine 0.62, calcium 9.6. The patient is not a smoker. Influenza vaccine was not administered today. Patient stands 5 feet 6 inches tall. She weighs 123 pounds. Her BMI is 19.9, which is normal. Total time: 24 minutes.
== END 2020-12-07 23:59 ==
LOC: WC 09:00
PROVIDERS: Visit Provider Surgery
DX: L89.523 Pressure ulcer of left ankle, stage 3 (principal); L89.153 Pressure ulcer of sacral region, stage 3; L89.613 Pressure ulcer of right heel, stage 3; I10 Essential (primary) hypertension; F79 Unspecified intellectual disabilities; K21.9 Gastro-esophageal reflux disease without esophagitis; G21.19 Other drug induced secondary parkinsonism; Z86.14 Personal history of Methicillin resistant Staphylococcus aureus infection; R32 Unspecified urinary incontinence; E03.9 Hypothyroidism, unspecified; Z79.899 Other long term (current) drug therapy; K59.09 Other constipation
CPT/HCPCS: 11042

== ENCOUNTER 2020-12-30 10:30 | Outpatient (RCR) | payer MEDICAID, SELFPAY ==
[2020-12-08 00:11] VITALS: BP 136/89; PULSE 89; RESP 16; TEMP 35.6
[2020-12-30 10:16] VITALS: BMI 22.8
--- NOTE | 2020-12-30 10:30 | WC ---
PT COMBATIVE. REFUSED VITALS. ASSESSMENT WAS LIMITED OF WOUNDS.
--- NOTE | 2020-12-30 12:57 | PCM.WC.HP ---
(1) Pressure ulcer of right ankle, stage 4 Status: Resolved Code(s): L89.514 - Pressure ulcer of right ankle, stage 4 (2) Pressure ulcer of left ankle, stage 2 Status: Resolved Code(s): L89.522 - Pressure ulcer of left ankle, stage 2 (3) Mental disability Status: Chronic Code(s): F79 - Unspecified intellectual disabilities (4) Behavioral disorder Status: Chronic (5) Hypertension Status: Chronic Code(s): I10 - Essential (primary) hypertension (6) Eczema Status: Chronic Code(s): L30.9 - Dermatitis, unspecified (7) Intellectual disability Status: Acute Code(s): F79 - Unspecified intellectual disabilities (8) GERD (gastroesophageal reflux disease) Status: Chronic Code(s): K21.9 - Gastro-esophageal reflux disease without esophagitis (9) Chronic constipation Status: Chronic Code(s): K59.09 - Other constipation (10) Hypothyroidism Status: Chronic Code(s): E03.9 - Hypothyroidism, unspecified (11) Cataracts, bilateral Status: Chronic Code(s): H26.9 - Unspecified cataract (12) History of pituitary adenoma Status: Chronic Code(s): Z86.018 - Personal history of other benign neoplasm (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 Code(s): G21.19 - Other drug induced secondary parkinsonism (14) Pressure ulcer of left ankle Status: Resolved Qualifiers: Code(s): L89.529 - Pressure ulcer of left ankle, unspecified stage (15) Pressure ulcer of right heel Status: Chronic Qualifiers: Pressure injury stage: stage 3 Qualified Code(s): L89.613 - Pressure ulcer of right heel, stage 3 Code(s): L89.619 - Pressure ulcer of right heel, unspecified stage (16) Pressure ulcer of sacral region Status: Resolved Qualifiers: Code(s): L89.159 - Pressure ulcer of sacral region, unspecified stage History of Present Illness Date of Service: 12/30/20 Chief Complaint: Multiple pressure ulcerations History of Wound: This is a 60-year-old female who suffers from cognitive and intellectual disability, and who is a resident of a group. She has developed pressure ulcerations on the right heel, left lateral malleolus, and sacrum. These had been present for several weeks. It was learned that the patient spends a great deal of time in bed. She is not very mobile. She sleeps on a regular mattress. Her appetite is described as not good. She is also incontinent of urine. 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 The patient has been previously treated for an ulceration of the right ankle in November 2019, at which time she was diagnosed with a MRSA infection. Also of note, the patient was recently diagnosed with Covid, and is now recovered. 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) Pressure ulcer of right heel (Chronic) Surgical History: no surgical history Allergies/Adverse Reactions: Allergies No Known Allergies Allergy (Verified 11/16/19 11:11) Home Medications: Ambulatory Orders Medication Instructions Recorded Atenolol 25 mg PO DAILY 11/16/19 Cetirizine HCl [All Day Allergy] 10 mg PO DAILY 11/16/19 Clozapine [Clozapine Odt] 150 mg PO BID 11/16/19 Lactulose [Constulose] 60 ml PO BID 11/16/19 Levothyroxine [Synthroid] 75 mcg PO DAILY 11/16/19 Magnesium Citrate [Citrate of 296 ml PO QWEEK 11/16/19 Magnesia] Sennosides/Docusate Sodium [Senna 1 ea PO BID 11/16/19 Plus 8.6-50 mg Softgel] Cephalexin [Keflex] 500 mg PO Q8 04/17/20 Multivit with Iron,Minerals 1 ea PO DAILY 04/17/20 [Multivitamins with Iron] Hydrocortisone Acetate Cream 1 applic RECTAL QHS PRN PRN 11/04/20 [Anusol Hc] Mirtazapine 7.5 mg PO QHS 11/04/20 Nut.tx.gluc.intoler,Lac-Fr,Soy 237 ml PO TID 11/04/20 [Glucerna] Pantoprazole Sodium 40 mg PO DAILY 11/04/20 Smoking Status: Never smoker Tobacco Use: Non-smoker Review of Systems Constitutional: Denies: Chills, Fever, Weight Change Eyes: Denies: Pain, Vision Change HEENT: Denies: Difficulty Hearing, Difficulty Swallowing, Sinus Congestion Cardiovascular: Denies: Chest Pain, Palpitations Respiratory: Denies: Cough, Shortness of Breath Gastrointestinal: Denies: Diarrhea, Nausea, Vomiting Genitourinary: Denies: Dysuria, Hematuria Endocrine: Denies: Heat/ Cold Intolerance, Polydipsia, Polyuria Hematologic/ Lymphatic: Denies: Easy Bruising, Easy Bleeding - Physical Exam Vital Signs Temp Pulse Resp BP 96.0 F L 89 16 136/89 H 12/08/20 00:11 12/08/20 00:11 12/08/20 00:11 12/08/20 00:11 General: Alert, No apparent distress, Well developed, Well nourished, - - The patient is obviously cognitively impaired. She is somewhat disoriented and uncooperative today, screaming thrashing about. HEENT: Atraumatic, PERRLA, EOMI, Normocephalic Oral: Moist Mucosa Neck: No JVD Lungs: Normal air movement Abdomen: Non-Distended Extremities: No clubbing, No cyanosis, No edema Addt'l Wound Findings: The ulceration on the left lateral malleolus of the sacrum and L epithelialized and healed. The ulceration of the right heel persists. There is a small amount of callus peripherally about the ulceration. There is a small amount of bioburden. There is no sign of infection or cellulitis. Dimensions are documented elsewhere. Skin: No rashes Wound Measurements and Assessment WC - Nurse 1 - General Ulcer Measurement Start: 12/30/20 10:15 Freq: Status: Active Protocol: Activity Type Activity Date Activity User E-Sign Co-Sign Detail Recorded Client Recorded Date Recorded By Document 12/30/20 10:16 [facility] [id number] 12/30/20 10:30 [facility] 12/30/20 10:16 Wound Center Nurse 1 [Ulcer Assessment] #7 sacral -Combined with other wound No -Current Size (cm) - Length 0.1 -Current Size (cm) - Width 0.1 -Current Size (cm) - Depth 0.1 -Total Square Cm 0.01 -Epithelialization Large 67-100% -Tunneling No -Undermining/Tunneling No -Circular Undermining No -Exudate Amt None Present -Texture (Abiola-wound Skin Appearance) Assessed -Moisture (Abiola-wound Skin Appearance Assessed ) -Color (Abiola-wound Skin Appearance) Assessed -Temperature (Abiola-wound Skin No Abnormality Appearance) (Pt Warm) -Tenderness on Palpation (Abiola-wound No Skin Appearance) #6 left ankle -Combined with other wound No -Current Size (cm) - Length 0.1 -Current Size (cm) - Width 0.1 -Current Size (cm) - Depth 0.1 -Total Square Cm 0.01 -Epithelialization Large 67-100% -Tunneling No -Undermining/Tunneling No -Circular Undermining No -Texture (Abiola-wound Skin Appearance) Assessed -Moisture (Abiola-wound Skin Appearance Assessed ) -Color (Abiola-wound Skin Appearance) Assessed -Temperature (Abiola-wound Skin No Abnormality Appearance) (Pt Warm) -Tenderness on Palpation (Abiola-wound No Skin Appearance) #5 right heel -Combined with other wound No -Current Size (cm) - Length 0.4 -Current Size (cm) - Width 0.4 -Current Size (cm) - Depth 0.3 -Total Square Cm 0.16 -Photo Taken No -Epithelialization None Present -Tunneling No -Undermining/Tunneling No -Circular Undermining No -Wound Margin Thickened -Granulation Amt Small (1-33%) -Granulation Quality Red -Slough/Fibrin Yes -Necrosis Amt Medium (34-66%) -Necrotic Tissue Type Adherent Slough -Texture (Abiola-wound Skin Appearance) Assessed,Callus ,Scarring -Moisture (Abiola-wound Skin Appearance Assessed ) -Color (Abiola-wound Skin Appearance) Assessed -Temperature (Abiola-wound Skin No Abnormality Appearance) (Pt Warm) -Tenderness on Palpation (Abiola-wound No Skin Appearance) -Ulcer Cleansing Rinsed/ Irrigated with Saline -Foul Odor after Cleansing No -Anesthetic Used 4% Lidocaine Solution WC - Nurse 2 - General Ulcer CM Notes Start: 12/30/20 10:15 Freq: Status: Active Protocol: Activity Type Activity Date Activity User E-Sign Co-Sign Detail Recorded Client Recorded Date Recorded By Document 12/30/20 12:24 PL [id number] 12/30/20 12:24 PL 12/30/20 12:24 Wound Center Nurse 2 [Procedure/Treatment] -Time 10:38 -Correct Patient Yes -Correct Side, Site, Position Yes -Correct Procedure Yes -Procedure Performed Yes -Type of Procedure Debridement -Clinical Debridement Subcutaneous -Tissue Removed Subcutaneous -Post Debridement (cm) - Length 0.4 -Post Debridement (cm) - Width 0.4 -Post Debridement (cm) - Depth 0.3 -Total Square (Post) (cm) 0.16 -Area of Debridement (cm) - Length 0.4 -Area of Debridement (cm) - Width 0.4 -Total Square (Area) (cm) 0.16 -Tunneling No -Undermining/Tunneling No -Circular Undermining No -Wound/Ulcer Outcome Not Healed -Ulcer Cleansing Rinsed/ Irrigated with Saline -Foul Odor after Cleansing No -Bioengineered Tissue No -Bleeding Controlled with Pressure -Treatment Response Procedure Tolerated Well -Debridement - Subq, 1st 20sq cm Yes [See Physician Procedure note for Specifics] Pain Scale: 0-10 Numeric [Pain] -Is Patient Pain Free? Yes - Nurse 3 - General Ulcer D/C NN Start: 12/30/20 10:15 Freq: Status: Active Protocol: Activity Type Activity Date Activity User E-Sign Co-Sign Detail Recorded Client Recorded Date Recorded By Document 12/30/20 10:43 [facility] [id number] 12/30/20 10:46 [facility] 12/30/20 10:43 Wound Care Nurse 3 [Wound Dressing] #5 right heel -Ulcer Cleansing Rinsed/ Irrigated with Saline -Foul Odor after Cleansing No -Primary Dressing Applied Other -Other Dressing HYDROGEL -Primary Dressing Covered/Secured Dry Gauze, with Secured with Tape [Post Procedure Tolerated] -Treatment Response Procedure Not Tolerated Well Vital Signs [Comments] -Comment PT COMBATIVE. WC - Visit Discharge [Visit Discharge Information] -Ambulatory Status Wheelchair [Facility Notification] -Other NURSING HOME Neurological: Cranial nerves II-XII grossly intact, Neuro grossly intact Psych/Mental Status: Agitated, Irrational Behavior, Restless, - - The patient is unusually agitated and restless today. Debridement Note Post-Debridement Measurements/Treatment WC - Nurse 2 - General Ulcer CM Notes Start: 12/30/20 10:15 Freq: Status: Active Protocol: Activity Type Activity Date Activity User E-Sign Co-Sign Detail Recorded Client Recorded Date Recorded By Document 12/30/20 12:24 PL [id number] 12/30/20 12:24 PL 12/30/20 12:24 Wound Center Nurse 2 #5 right heel -Time 10:38 -Correct Patient Yes -Correct Side, Site, Position Yes -Correct Procedure Yes -Procedure Performed Yes -Type of Procedure Debridement -Clinical Debridement Subcutaneous -Tissue Removed Subcutaneous -Post Debridement (cm) - Length 0.4 -Post Debridement (cm) - Width 0.4 -Post Debridement (cm) - Depth 0.3 -Total Square (Post) (cm) 0.16 -Area of Debridement (cm) - Length 0.4 -Area of Debridement (cm) - Width 0.4 -Total Square (Area) (cm) 0.16 -Tunneling No -Undermining/Tunneling No -Circular Undermining No -Wound/Ulcer Outcome Not Healed -Ulcer Cleansing Rinsed/ Irrigated with Saline -Foul Odor after Cleansing No -Bioengineered Tissue No -Bleeding Controlled with Pressure -Treatment Response Procedure Tolerated Well -Debridement - Subq, 1st 20sq cm Yes Pain Scale: 0-10 Numeric Is Patient Pain Free? Yes - Nurse 3 - General Ulcer D/C NN Start: 12/30/20 10:15 Freq: Status: Active Protocol: Activity Type Activity Date Activity User E-Sign Co-Sign Detail Recorded Client Recorded Date Recorded By Document 12/30/20 10:43 [facility] [id number] 12/30/20 10:46 [facility] 12/30/20 10:43 Wound Care Nurse 3 #5 right heel -Ulcer Cleansing Rinsed/ Irrigated with Saline -Foul Odor after Cleansing No -Primary Dressing Applied Other -Other Dressing HYDROGEL -Primary Dressing Covered/Secured with Dry Gauze, Secured with Tape Treatment Response Procedure Not Tolerated Well Vital Signs Comment PT COMBATIVE. WC - Visit Discharge Ambulatory Status Wheelchair Other NURSING HOME Laterality: Right - Heel Type of Debridement: Excisional debridement Anesthesia Used: 5% Lidocaine Gel Depth: Down to and including healthy tissue, in the subcutaneous layer Percentage of wound debrided: 100 Instrument Used: 3mm curette Tissue Removed: Bioburden Severity: Fat Layer Exposed Amount of bleeding with debridement: Mild Bleeding Controlled with: Compression and gauze Patient tolerated procedure well Assessment/Plan Active Problems Mental disability (Chronic) Behavioral disorder (Chronic) Hypertension (Chronic) Eczema (Chronic) Intellectual disability (Chronic) GERD (gastroesophageal reflux disease) (Chronic) Chronic constipation (Chronic) Hypothyroidism (Chronic) Cataracts, bilateral (Chronic) History of pituitary adenoma (Chronic) 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 She is a resident of a long term. She has developed pressure ulcerations of the left lateral ankle, right heel, and sacral region within the several weeks prior to presentation. These appear to be stage III pressure ulcerations. It is noted that the patient sleeps on a regular mattress. She is not very mobile, and spends a great deal of time lying in bed. Her appetite is not known to be good. She suffers from multiple medical problems, which are listed above. The ulcer on the left lateral malleolus and the sacrum appear to be completely healed. Plan: Offloading measures have been recommended. We have recommended a low air-loss mattress. Efforts are underway to procure such an offloading mattress. Soft, padded heel protectors have been recommended as well, to protect the heel and ankle ulcerations. Frequent repositioning has been advised. Nutritional optimization has also been recommended, and the patient is now receiving nutritional supplements 2-3 times per day. We are to continue the use of collagenase Santyl topically to the remaining ulceration of the right heel. This will be applied on a daily basis. There has been some improvement in the last several weeks, and the ulceration of the left lateral malleolus and sacrum are now completely healed. The patient is to return in 1 week for re-evaluation. Recent laboratory studies have been obtained, dated 10/22/2020, with results as follows: White blood count 12.7, hemoglobin 13.5, hematocrit 40.8, platelets 283,000, Kos 208, sodium 145, potassium 4.4, chloride 110, BUN 8.0, creatinine 0.62, calcium 9.6. The patient is not a smoker. Influenza vaccine was not administered today. Patient stands 5 feet 6 inches tall. She weighs 123 pounds. Her BMI is 19.9, which is normal. Total time: 26 minutes.
== END 2021-01-04 23:59 ==
LOC: WC 10:30
PROVIDERS: Visit Provider Surgery
DX: L89.613 Pressure ulcer of right heel, stage 3 (principal); L89.159 Pressure ulcer of sacral region, unspecified stage; L30.9 Dermatitis, unspecified; F79 Unspecified intellectual disabilities; K21.9 Gastro-esophageal reflux disease without esophagitis; K59.09 Other constipation; I10 Essential (primary) hypertension; E03.9 Hypothyroidism, unspecified; G21.19 Other drug induced secondary parkinsonism; Z86.14 Personal history of Methicillin resistant Staphylococcus aureus infection; Z79.899 Other long term (current) drug therapy; Z68.1 Body mass index [BMI] 19.9 or less, adult
CPT/HCPCS: 11042

== ENCOUNTER 2021-01-20 10:00 | Outpatient (RCR) | payer MEDICAID, SELFPAY ==
[2021-01-05 00:11] VITALS: BP 136/89; PULSE 89; RESP 16; TEMP 35.6
[2021-01-06 10:12] VITALS: BMI 22.8
--- NOTE | 2021-01-06 11:54 | HP.PCM_ITS ---
(1) Pressure ulcer of right ankle, stage 4 Status: Resolved Code(s): L89.514 - Pressure ulcer of right ankle, stage 4 (2) Pressure ulcer of left ankle, stage 2 Status: Resolved Code(s): L89.522 - Pressure ulcer of left ankle, stage 2 (3) Mental disability Status: Chronic Code(s): F79 - Unspecified intellectual disabilities (4) Behavioral disorder Status: Chronic (5) Hypertension Status: Chronic Code(s): I10 - Essential (primary) hypertension (6) Eczema Status: Chronic Code(s): L30.9 - Dermatitis, unspecified (7) Intellectual disability Status: Acute Code(s): F79 - Unspecified intellectual disabilities (8) GERD (gastroesophageal reflux disease) Status: Chronic Code(s): K21.9 - Gastro-esophageal reflux disease without esophagitis (9) Chronic constipation Status: Chronic Code(s): K59.09 - Other constipation (10) Hypothyroidism Status: Chronic Code(s): E03.9 - Hypothyroidism, unspecified (11) Cataracts, bilateral Status: Chronic Code(s): H26.9 - Unspecified cataract (12) History of pituitary adenoma Status: Chronic Code(s): Z86.018 - Personal history of other benign neoplasm (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 Code(s): G21.19 - Other drug induced secondary parkinsonism (14) Pressure ulcer of left ankle Status: Resolved Qualifiers: Code(s): L89.529 - Pressure ulcer of left ankle, unspecified stage (15) Pressure ulcer of right heel Status: Chronic Qualifiers: Pressure injury stage: stage 3 Code(s): L89.619 - Pressure ulcer of right heel, unspecified stage (16) Pressure ulcer of sacral region Status: Resolved Qualifiers: Code(s): L89.159 - Pressure ulcer of sacral region, unspecified stage History of Present Illness Date of Service: 01/06/21 Chief Complaint: Multiple pressure ulcerations History of Wound: This is a 60-year-old female who suffers from cognitive and intellectual disability, and who is a resident of a group. She has developed pressure ulcerations on the right heel, left lateral malleolus, and sacrum. These had been present for several weeks. It was learned that the patient spends a great deal of time in bed. She is not very mobile. She sleeps on a regular mattress. Her appetite is described as not good. She is also in continent of urine. 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 The patient has been previously treated for an ulceration of the right ankle in November 2019, at which time she was diagnosed with a MRSA infection. Also of note, the patient was recently diagnosed with Covid, and is now recovered. 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) Pressure ulcer of right heel (Chronic) Surgical History: no surgical history Allergies/Adverse Reactions: Allergies No Known Allergies Allergy (Verified 11/16/19 11:11) Home Medications: Ambulatory Orders Medication Instructions Recorded Atenolol 25 mg PO DAILY 11/16/19 Cetirizine HCl [All Day Allergy] 10 mg PO DAILY 11/16/19 Clozapine [Clozapine Odt] 150 mg PO BID 11/16/19 Lactulose [Constulose] 60 ml PO BID 11/16/19 Levothyroxine [Synthroid] 75 mcg PO DAILY 11/16/19 Magnesium Citrate [Citrate of 296 ml PO QWEEK 11/16/19 Magnesia] Sennosides/Docusate Sodium [Senna 1 ea PO BID 11/16/19 Plus 8.6-50 mg Softgel] Cephalexin [Keflex] 500 mg PO Q8 04/17/20 Multivit with Iron,Minerals 1 ea PO DAILY 04/17/20 [Multivitamins with Iron] Hydrocortisone Acetate Cream 1 applic RECTAL QHS PRN PRN 11/04/20 [Anusol Hc] Mirtazapine 7.5 mg PO QHS 11/04/20 Nut.tx.gluc.intoler,Lac-Fr,Soy 237 ml PO TID 11/04/20 [Glucerna] Pantoprazole Sodium 40 mg PO DAILY 11/04/20 Smoking Status: Never smoker Tobacco Use: Non-smoker Review of Systems Constitutional: Denies: Chills, Fever, Weight Change Eyes: Denies: Pain, Vision Change HEENT: Denies: Difficulty Hearing, Difficulty Swallowing, Sinus Congestion Cardiovascular: Denies: Chest Pain, Palpitations Respiratory: Denies: Cough, Shortness of Breath Gastrointestinal: Denies: Diarrhea, Nausea, Vomiting Genitourinary: Denies: Dysuria, Hematuria Endocrine: Denies: Heat/ Cold Intolerance, Polydipsia, Polyuria Hematologic/ Lymphatic: Denies: Easy Bruising, Easy Bleeding - Physical Exam Vital Signs Temp Pulse Resp BP 96.0 F L 89 16 136/89 H 01/05/21 00:11 01/05/21 00:11 01/05/21 00:11 01/05/21 00:11 General: Alert, Oriented x3, Cooperative, No apparent distress, Well developed, Well nourished HEENT: Atraumatic, PERRLA, EOMI, Normocephalic Oral: Moist Mucosa Neck: No JVD Lungs: Normal air movement Abdomen: Non-Distended Extremities: No clubbing, No cyanosis, No edema, No Calf Tenderness, - - The ulceration of the patient's right heel persists. It is a stage III pressure ulceration. There is a small amount of bioburden. Callus surrounds the ulceration. There is no sign of infection or cellulitis. Addt'l Wound Findings: The ulceration near the left lateral malleolus and on the sacrum remain healed. Skin: No rashes Wound Measurements and Assessment WC - Nurse 1 - General Ulcer Measurement Start: 01/06/21 10:12 Freq: Status: Active Protocol: Activity Type Activity Date Activity User E-Sign Co-Sign Detail Recorded Client Recorded Date Recorded By Document 01/06/21 10:12 MW [id number] 01/06/21 10:14 MW 01/06/21 10:12 Wound Center Nurse 1 [Ulcer Assessment] #5 right heel -Combined with other wound No -Current Size (cm) - Length 0.1 -Current Size (cm) - Width 0.1 -Current Size (cm) - Depth 0.1 -Total Square Cm 0.01 -Photo Taken No -Epithelialization None Present -Tunneling No -Undermining/Tunneling No -Circular Undermining No -Exudate Amt None Present -Wound Margin Flat & Intact -Granulation Amt None Present (0 %) -Granulation Quality N/A -Slough/Fibrin Yes -Necrosis Amt Large (67-100%) -Necrotic Tissue Type Adherent Slough -Structure Exposed N/A -Texture (Abiola-wound Skin Appearance) No Abnormality, Assessed -Moisture (Abiola-wound Skin Appearance Assessed,Dry/ ) Scaly -Color (Abiola-wound Skin Appearance) No Abnormality, Assessed -Temperature (Abiola-wound Skin No Abnormality Appearance) (Pt Warm) -Tenderness on Palpation (Abiola-wound Yes Skin Appearance) -Ulcer Cleansing Rinsed/ Irrigated with Saline -Foul Odor after Cleansing No -Anesthetic Used 5% Lidocaine Gel [Edema Assessment] -Lower Limb Edema Present No Neurological: Cranial nerves II-XII grossly intact, Neuro grossly intact Psych/Mental Status: Agitated, - - The patient suffers from cognitive impairment. She is once again agitated and uncooperative. Debridement Note Laterality: Right - We will Type of Debridement: Excisional debridement Anesthesia Used: 5% Lidocaine Gel Depth: Down to and including healthy tissue, in the subcutaneous layer Percentage of wound debrided: 100 Instrument Used: 3mm curette Tissue Removed: Bioburden and callus Severity: Fat Layer Exposed Amount of bleeding with debridement: Mild Bleeding Controlled with: Compression and gauze Patient tolerated procedure well Assessment/Plan Active Problems Mental disability (Chronic) Behavioral disorder (Chronic) Hypertension (Chronic) Eczema (Chronic) Intellectual disability (Chronic) GERD (gastroesophageal reflux disease) (Chronic) Chronic constipation (Chronic) Hypothyroidism (Chronic) Cataracts, bilateral (Chronic) History of pituitary adenoma (Chronic) 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 She is a resident of a alf. She has developed pressure ulcerations of the left lateral ankle, right heel, and sacral region within the several weeks prior to presentation. These appear to be stage III pressure ulcerations. It is noted that the patient sleeps on a regular mattress. She is not very mobile, and spends a great deal of time lying in bed. Her appetite is not known to be good. She suffers from multiple medical problems, which are listed above. The ulcer on the left lateral malleolus and the sacrum appear to be completely healed. Plan: Offloading measures have been recommended. We have recommended a low air- loss mattress. Efforts are underway to procure such an offloading mattress. Soft, padded heel protectors have been recommended as well, to protect the heel and ankle ulcerations. Frequent repositioning has been advised. Nutritional optimization has also been recommended, and the patient is now receiving nutritional supplements 2-3 times per day. We are to continue the use of collagenase Santyl topically to the remaining ulceration of the right heel. This will be applied on a daily basis. There has been some improvement in the last several weeks, and the ulceration of the left lateral malleolus and sacrum are now completely healed. The patient is to return in 1 week for re- evaluation. Recent laboratory studies have been obtained, dated 10/22/2020, with results as follows: White blood count 12.7, hemoglobin 13.5, hematocrit 40.8, platelets 283,000, Kos 208, sodium 145, potassium 4.4, chloride 110, BUN 8.0, creatinine 0.62, calcium 9.6. The patient is not a smoker. Influenza vaccine was not administered today. Patient stands 5 feet 6 inches tall. She weighs 123 pounds. Her BMI is 19.9, which is normal. Total time: 25 minutes.
[2021-01-13 09:58] VITALS: BMI 22.8
--- NOTE | 2021-01-13 10:12 | HP.PCM_ITS ---
(1) Pressure ulcer of right ankle, stage 4 Status: Resolved Code(s): L89.514 - Pressure ulcer of right ankle, stage 4 (2) Pressure ulcer of left ankle, stage 2 Status: Resolved Code(s): L89.522 - Pressure ulcer of left ankle, stage 2 (3) Mental disability Status: Chronic Code(s): F79 - Unspecified intellectual disabilities (4) Behavioral disorder Status: Chronic (5) Hypertension Status: Chronic Code(s): I10 - Essential (primary) hypertension (6) Eczema Status: Chronic Code(s): L30.9 - Dermatitis, unspecified (7) Intellectual disability Status: Chronic Code(s): F79 - Unspecified intellectual disabilities (8) GERD (gastroesophageal reflux disease) Status: Chronic Code(s): K21.9 - Gastro-esophageal reflux disease without esophagitis (9) Chronic constipation Status: Chronic Code(s): K59.09 - Other constipation (10) Hypothyroidism Status: Chronic Code(s): E03.9 - Hypothyroidism, unspecified (11) Cataracts, bilateral Status: Chronic Code(s): H26.9 - Unspecified cataract (12) History of pituitary adenoma Status: Chronic Code(s): Z86.018 - Personal history of other benign neoplasm (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 Code(s): G21.19 - Other drug induced secondary parkinsonism (14) Pressure ulcer of left ankle Status: Resolved Qualifiers: Code(s): L89.529 - Pressure ulcer of left ankle, unspecified stage (15) Pressure ulcer of right heel Status: Chronic Qualifiers: Pressure injury stage: stage 3 Code(s): L89.619 - Pressure ulcer of right heel, unspecified stage (16) Pressure ulcer of sacral region Status: Resolved Qualifiers: Code(s): L89.159 - Pressure ulcer of sacral region, unspecified stage History of Present Illness Date of Service: 01/13/21 Chief Complaint: Multiple pressure ulcerations History of Wound: This is a 60-year-old female who suffers from cognitive and intellectual disability, and who is a resident of a group. She had developed pressure ulcerations on the right heel, left lateral malleolus, and sacrum. These had been present for several weeks. It was learned that the patient spends a great deal of time in bed. She is not very mobile. She sleeps on a regular mattress. Her appetite is described as not good. She is also incontinent of urine. 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 The patient has been previously treated for an ulceration of the right ankle in November 2019, at which time she was diagnosed with a MRSA infection. Also of note, the patient was recently diagnosed with Covid, and is now recovered. 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) Pressure ulcer of right heel (Chronic) Surgical History: no surgical history Allergies/Adverse Reactions: Allergies No Known Allergies Allergy (Verified 11/16/19 11:11) Home Medications: Ambulatory Orders Medication Instructions Recorded Atenolol 25 mg PO DAILY 11/16/19 Cetirizine HCl [All Day Allergy] 10 mg PO DAILY 11/16/19 Clozapine [Clozapine Odt] 150 mg PO BID 11/16/19 Lactulose [Constulose] 60 ml PO BID 11/16/19 Levothyroxine [Synthroid] 75 mcg PO DAILY 11/16/19 Magnesium Citrate [Citrate of 296 ml PO QWEEK 11/16/19 Magnesia] Sennosides/Docusate Sodium [Senna 1 ea PO BID 11/16/19 Plus 8.6-50 mg Softgel] Cephalexin [Keflex] 500 mg PO Q8 04/17/20 Multivit with Iron,Minerals 1 ea PO DAILY 04/17/20 [Multivitamins with Iron] Hydrocortisone Acetate Cream 1 applic RECTAL QHS PRN PRN 11/04/20 [Anusol Hc] Mirtazapine 7.5 mg PO QHS 11/04/20 Nut.tx.gluc.intoler,Lac-Fr,Soy 237 ml PO TID 11/04/20 [Glucerna] Pantoprazole Sodium 40 mg PO DAILY 11/04/20 Smoking Status: Never smoker Tobacco Use: Non-smoker Review of Systems Constitutional: Denies: Chills, Fever, Weight Change Eyes: Denies: Pain, Vision Change HEENT: Denies: Difficulty Hearing, Difficulty Swallowing, Sinus Congestion Cardiovascular: Denies: Chest Pain, Palpitations Respiratory: Denies: Cough, Shortness of Breath Gastrointestinal: Denies: Diarrhea, Nausea, Vomiting Genitourinary: Denies: Dysuria, Hematuria Endocrine: Denies: Heat/ Cold Intolerance, Polydipsia, Polyuria Hematologic/ Lymphatic: Denies: Easy Bruising, Easy Bleeding - Physical Exam Vital Signs Temp Pulse Resp BP 96.0 F L 89 16 136/89 H 01/05/21 00:11 01/05/21 00:11 01/05/21 00:11 01/05/21 00:11 General: Alert, Oriented x3, Cooperative, No apparent distress, Well developed, Well nourished, - - The patient is uncooperative. She is also cognitively impaired. HEENT: Atraumatic, PERRLA, EOMI, Normocephalic Oral: Moist Mucosa Neck: No JVD Lungs: Normal air movement Abdomen: Non-Distended Extremities: No clubbing, No cyanosis, No edema, No Calf Tenderness Addt'l Wound Findings: The ulcerations on the sacrum and on the left lateral malleolus remain healed. Ulceration on the right heel persists. It appears to be diminishing in size. Callus persists around the ulceration, though appears to be diminishing. There is a moderate amount of bioburden. There is no sign of infection or cellulitis. Dimensions are documented elsewhere. Skin: No rashes Wound Measurements and Assessment WC - Nurse 1 - General Ulcer Measurement Start: 01/06/21 10:12 Freq: Status: Active Protocol: Activity Type Activity Date Activity User E-Sign Co-Sign Detail Recorded Client Recorded Date Recorded By Document 01/13/21 09:58 THERESE [id number] 01/13/21 10:01 PL 01/13/21 09:58 Wound Center Nurse 1 [Ulcer Assessment] #5 right heel -Combined with other wound No -Current Size (cm) - Length 0.1 -Current Size (cm) - Width 0.1 -Current Size (cm) - Depth 0.1 -Total Square Cm 0.01 -Photo Taken No -Epithelialization None Present -Exudate Amt Small -Exudate Type Serosanguineous -Granulation Amt Medium (34-66%) -Granulation Quality [place] -Necrosis Amt Medium (34-66%) -Necrotic Tissue Type Eschar -Anesthetic Used 5% Lidocaine Gel Neurological: Cranial nerves II-XII grossly intact, Neuro grossly intact Psych/Mental Status: Normal Affect, Appropriate, Alert and oriented to time, place, person, mood and affect Debridement Note Post-Debridement Measurements/Treatment WC - Nurse 2 - General Ulcer CM Notes Start: 01/06/21 10:12 Freq: Status: Active Protocol: Activity Type Activity Date Activity User E-Sign Co-Sign Detail Recorded Client Recorded Date Recorded By Document 01/06/21 13:56 PL [id number] 01/06/21 14:03 01/06/21 13:56 Wound Center Nurse 2 #5 right heel -Time 10:30 -Correct Patient Yes -Correct Side, Site, Position Yes -Correct Procedure Yes -Procedure Performed Yes -Type of Procedure Debridement -Clinical Debridement Subcutaneous -Tissue Removed Subcutaneous -Post Debridement (cm) - Length 0.2 -Post Debridement (cm) - Width 0.2 -Post Debridement (cm) - Depth 0.1 -Total Square (Post) (cm) 0.04 -Area of Debridement (cm) - Length 0.2 -Area of Debridement (cm) - Width 0.2 -Total Square (Area) (cm) 0.04 -Tunneling No -Undermining/Tunneling No -Circular Undermining No -Wound/Ulcer Outcome Not Healed -Ulcer Cleansing Rinsed/ Irrigated with Saline -Foul Odor after Cleansing No -Bioengineered Tissue No -Debridement - Subq, 1st 20sq cm Yes Pain Scale: 0-10 Numeric Is Patient Pain Free? Yes - Nurse 3 - General Ulcer D/C NN Start: 01/06/21 10:12 Freq: Status: Active Protocol: Activity Type Activity Date Activity User E-Sign Co-Sign Detail Recorded Client Recorded Date Recorded By Document 01/06/21 13:56 PL [id number] 01/06/21 14:03 01/06/21 13:56 Is Patient Pain Free? Yes Wound Care Nurse 3 #5 right heel -Ulcer Cleansing Rinsed/ Irrigated with Saline -Foul Odor after Cleansing No -Primary Dressing Covered/Secured with Dry Gauze & Roll Gauze, Secured with Tape WC - Visit Discharge Discharge Condition Stable Ambulatory Status Wheelchair Transportation Private Auto Laterality: Right - Posterior heel Type of Debridement: Excisional debridement Anesthesia Used: 5% Lidocaine Gel Depth: Down to and including healthy tissue, in the subcutaneous layer Percentage of wound debrided: 100 Instrument Used: 5mm curette Tissue Removed: Bioburden and callus Severity: Fat Layer Exposed Amount of bleeding with debridement: Mild Bleeding Controlled with: Compression and gauze Patient tolerated procedure well Assessment/Plan Active Problems Mental disability (Chronic) Behavioral disorder (Chronic) Hypertension (Chronic) Eczema (Chronic) Intellectual disability (Chronic) GERD (gastroesophageal reflux disease) (Chronic) Chronic constipation (Chronic) Hypothyroidism (Chronic) Cataracts, bilateral (Chronic) History of pituitary adenoma (Chronic) 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 She is a resident of a [facility]. She had developed pressure ulcerations of the left lateral ankle, right heel, and sacral region within the several weeks prior to presentation. These appeared to be stage III pressure ulcerations. It is noted that the patient sleeps on a regular mattress. She is not very mobile, and spends a great deal of time lying in bed. Her appetite is not known to be good. She suffers from multiple medical problems, which are listed above. The ulcer on the left lateral malleolus and the sacrum appear to be completely healed. Plan: Offloading measures have been recommended. We have recommended a low air- loss mattress. Efforts are underway to procure such an offloading mattress. Soft, padded heel protectors have been recommended as well, to protect the heel and ankle ulcerations. Frequent repositioning has been advised. Nutritional optimization has also been recommended, and the patient is now receiving nutritional supplements 2-3 times per day. We are to continue the use of collagenase Santyl topically to the remaining ulceration of the right heel. This will be applied on a daily basis. There has been some improvement in the last several weeks, and the ulceration of the left lateral malleolus and sacrum are now completely healed. The patient is to return in 1 week for re- evaluation. Recent laboratory studies have been obtained, dated 10/22/2020, wi th results as follows: White blood count 12.7, hemoglobin 13.5, hematocrit 40.8, platelets 283,000, Kos 208, sodium 145, potassium 4.4, chloride 110, BUN 8.0, creatinine 0.62, calcium 9.6. The patient is not a smoker. Influenza vaccine was not administered today. Patient stands 5 feet 6 inches tall. She weighs 123 pounds. Her BMI is 19.9, which is normal. Total time: 22 minutes.
--- NOTE | 2021-01-20 12:21 | HP.PCM_ITS ---
(1) Pressure ulcer of right ankle, stage 4 Status: Resolved Code(s): L89.514 - Pressure ulcer of right ankle, stage 4 (2) Pressure ulcer of left ankle, stage 2 Status: Resolved Code(s): L89.522 - Pressure ulcer of left ankle, stage 2 (3) Mental disability Status: Chronic Code(s): F79 - Unspecified intellectual disabilities (4) Behavioral disorder Status: Chronic (5) Hypertension Status: Chronic Code(s): I10 - Essential (primary) hypertension (6) Eczema Status: Chronic Code(s): L30.9 - Dermatitis, unspecified (7) Intellectual disability Status: Chronic Code(s): F79 - Unspecified intellectual disabilities (8) GERD (gastroesophageal reflux disease) Status: Chronic Code(s): K21.9 - Gastro-esophageal reflux disease without esophagitis (9) Chronic constipation Status: Chronic Code(s): K59.09 - Other constipation (10) Hypothyroidism Status: Chronic Code(s): E03.9 - Hypothyroidism, unspecified (11) Cataracts, bilateral Status: Chronic Code(s): H26.9 - Unspecified cataract (12) History of pituitary adenoma Status: Chronic Code(s): Z86.018 - Personal history of other benign neoplasm (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 Code(s): G21.19 - Other drug induced secondary parkinsonism (14) Pressure ulcer of left ankle Status: Resolved Qualifiers: Code(s): L89.529 - Pressure ulcer of left ankle, unspecified stage (15) Pressure ulcer of right heel Status: Chronic Qualifiers: Pressure injury stage: stage 3 Code(s): L89.619 - Pressure ulcer of right heel, unspecified stage (16) Pressure ulcer of sacral region Status: Resolved Qualifiers: Code(s): L89.159 - Pressure ulcer of sacral region, unspecified stage History of Present Illness Date of Service: 01/20/21 Chief Complaint: Multiple pressure ulcerations History of Wound: This is a 60-year-old female who suffers from cognitive and intellectual disability, and who is a resident of a group. She had developed pressure ulcerations on the right heel, left lateral malleolus, and sacrum. These had been present for several weeks. It was learned that the patient spends a great deal of time in bed. She is not very mobile. She sleeps on a regular mattress. Her appetite is described as not good. She is also incontinent of urine. 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 The patient has been previously treated for an ulceration of the right ankle in November 2019, at which time she was diagnosed with a MRSA infection. Also of note, the patient was recently diagnosed with Covid, and is now recovered. 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) Pressure ulcer of right heel (Chronic) Surgical History: no surgical history Allergies/Adverse Reactions: Allergies No Known Allergies Allergy (Verified 11/16/19 11:11) Home Medications: Ambulatory Orders Medication Instructions Recorded Atenolol 25 mg PO DAILY 11/16/19 Cetirizine HCl [All Day Allergy] 10 mg PO DAILY 11/16/19 Clozapine [Clozapine Odt] 150 mg PO BID 11/16/19 Lactulose [Constulose] 60 ml PO BID 11/16/19 Levothyroxine [Synthroid] 75 mcg PO DAILY 11/16/19 Magnesium Citrate [Citrate of 296 ml PO QWEEK 11/16/19 Magnesia] Sennosides/Docusate Sodium [Senna 1 ea PO BID 11/16/19 Plus 8.6-50 mg Softgel] Cephalexin [Keflex] 500 mg PO Q8 04/17/20 Multivit with Iron,Minerals 1 ea PO DAILY 04/17/20 [Multivitamins with Iron] Hydrocortisone Acetate Cream 1 applic RECTAL QHS PRN PRN 11/04/20 [Anusol Hc] Mirtazapine 7.5 mg PO QHS 11/04/20 Nut.tx.gluc.intoler,Lac-Fr,Soy 237 ml PO TID 11/04/20 [Glucerna] Pantoprazole Sodium 40 mg PO DAILY 11/04/20 Smoking Status: Never smoker Tobacco Use: Non-smoker Review of Systems Constitutional: Denies: Chills, Fever, Weight Change Eyes: Denies: Pain, Vision Change HEENT: Denies: Difficulty Hearing, Difficulty Swallowing, Sinus Congestion Cardiovascular: Denies: Chest Pain, Palpitations Respiratory: Denies: Cough, Shortness of Breath Gastrointestinal: Denies: Diarrhea, Nausea, Vomiting Genitourinary: Denies: Dysuria, Hematuria Endocrine: Denies: Heat/ Cold Intolerance, Polydipsia, Polyuria Hematologic/ Lymphatic: Denies: Easy Bruising, Easy Bleeding - Physical Exam Vital Signs Temp Pulse Resp BP 96.0 F L 89 16 136/89 H 01/05/21 00:11 01/05/21 00:11 01/05/21 00:11 01/05/21 00:11 General: Cooperative, No apparent distress, Well developed, Well nourished, - - The patient suffers from cognitive disability. She is somewhat uncooperative and combative. HEENT: Atraumatic, PERRLA, EOMI, Normocephalic Oral: Moist Mucosa Neck: No JVD Lungs: Normal air movement Abdomen: Non-Distended Extremities: No clubbing, No cyanosis, No edema, No Calf Tenderness, - - The ulceration on the patient's right heel appears to be completely healed and epithelialized. Some residual callus remains in the area. Addt'l Wound Findings: At this juncture, all of the patient's pressure ulcerations appear to be completely healed and epithelialized. Skin: No rashes Wound Measurements and Assessment WC - Nurse 1 - General Ulcer Measurement Start: 01/06/21 10:12 Freq: Status: Discharge Protocol: Activity Type Activity Date Activity User E-Sign Co-Sign Detail Recorded Client Recorded Date Recorded By Edit Status 01/20/21 10:20 JAISON [email or web address] Active=>Discharge [id number] 01/20/21 10:20 JAISON FLORES - Nurse 2 - General Ulcer CM Notes Start: 01/06/21 10:12 Freq: Status: Discharge Protocol: Activity Type Activity Date Activity User E-Sign Co-Sign Detail Recorded Client Recorded Date Recorded By Edit Status 01/20/21 10:20 JAISON FLORES Active=>Discharge [id number] 01/20/21 10:20 JAISON FLORES - Nurse 3 - General Ulcer D/C NN Start: 01/06/21 10:12 Freq: Status: Discharge Protocol: Activity Type Activity Date Activity User E-Sign Co-Sign Detail Recorded Client Recorded Date Recorded By Document 03/16/21 10:09 MW [id number] 01/20/21 10:10 MW Edit Status 01/20/21 10:20 JAISON FLORES Active=>Discharge [id number] 01/20/21 10:20 JAISON FLORES 01/20/21 10:09 Wound Care Nurse 3 [Wound Dressing] #5 right heel -Foul Odor after Cleansing No -Negative Pressure Wound Therapy N/A -Primary Dressing Applied C Hydrogel ($) -Primary Dressing Covered/Secured Dry Gauze, with Secured with Tape [Post Procedure Tolerated] -Treatment Response Procedure Tolerated Well Teaching: Wound Center [Wound Center Education] (Items with an * have Printed Materials Available- Please identify what is given to patient under the Teaching materials given to patient and caregiver Section. Discharge Instructions -Person Taught Patient,Primary Caregiver -Teaching Method Discussion -Response to teaching Verbalize understanding Dressing Your Wound -Person Taught Patient,Primary Caregiver -Teaching Method Discussion, Demonstration -Response to teaching Verbalize understanding WC - Visit Discharge [Visit Discharge Information] -Discharge Condition Stable -Ambulatory Status Wheelchair -Transportation Private Auto -Accompanied by caregiver -Medication Reconcilliation completed No & provided to patient/care provider -Clinical Summary of Care Provided Yes -Notes: healed, discharged from clinic Neurological: Cranial nerves II-XII grossly intact Psych/Mental Status: Restless, - - Patient is combative and uncooperative. Debridement Note Post-Debridement Measurements/Treatment WC - Nurse 2 - General Ulcer CM Notes Start: 01/06/21 10:12 Freq: Status: Discharge Protocol: Activity Type Activity Date Activity User E-Sign Co-Sign Detail Recorded Client Recorded Date Recorded By Document 01/06/21 13:56 PL [id number] 01/06/21 14:03 PL Document 01/13/21 10:19 PL [id number] 01/13/21 10:20 PL 01/06/21 01/13/21 13:56 10:19 Wound Center Nurse 2 #5 right heel -Time 10:30 10:08 -Correct Patient Yes Yes -Correct Side, Site, Position Yes Yes -Correct Procedure Yes Yes -Procedure Performed Yes Yes -Type of Procedure Debridement Debridement -Clinical Debridement Subcutaneous Subcutaneous -Tissue Removed Subcutaneous Subcutaneous -Post Debridement (cm) - Length 0.2 0.3 -Post Debridement (cm) - Width 0.2 0.3 -Post Debridement (cm) - Depth 0.1 0.2 -Total Square (Post) (cm) 0.04 0.09 -Area of Debridement (cm) - Length 0.2 0.3 -Area of Debridement (cm) - Width 0.2 0.3 -Total Square (Area) (cm) 0.04 0.09 -Tunneling No No -Undermining/Tunneling No No -Circular Undermining No No -Wound/Ulcer Outcome Not Healed Not Healed -Ulcer Cleansing Rinsed/ Rinsed/ Irrigated with Irrigated with Saline Saline -Foul Odor after Cleansing No No -Bioengineered Tissue No No -Debridement - Subq, 1st 20sq cm Yes Yes Pain Scale: 0-10 Numeric Is Patient Pain Free? Yes Yes WC - Nurse 3 - General Ulcer D/C NN Start: 01/06/21 10:12 Freq: Status: Discharge Protocol: Activity Type Activity Date Activity User E-Sign Co-Sign Detail Recorded Client Recorded Date Recorded By Document 01/06/21 13:56 PL [id number] 01/06/21 14:03 PL Document 01/13/21 10:20 PL [id number] 01/13/21 10:22 PL Document 01/20/21 10:09 MW [id number] 01/20/21 10:10 MW 01/06/21 01/13/21 01/20/21 13:56 10:20 10:09 Is Patient Pain Free? Yes Wound Care Nurse 3 #5 right heel -Ulcer Cleansing Rinsed/ Rinsed/ Irrigated with Irrigated with Saline Saline -Foul Odor after Cleansing No No No -Negative Pressure Wound Therapy N/A -Primary Dressing Applied C Hydrogel ($) -Other Dressing Hydrogel -Primary Dressing Covered/Secured with Dry Gauze & Dry Gauze & Dry Gauze, Roll Gauze, Roll Gauze, Secured with Secured with Secured with Tape Tape Tape -Other Covering Raffy Wrap Treatment Response Procedure Tolerated Well Teaching: Wound Center Discharge Instructions -Person Taught Patient,Primary Caregiver -Teaching Method Discussion -Response to teaching Verbalize understanding Dressing Your Wound -Person Taught Patient,Primary Caregiver -Teaching Method Discussion, Demonstration -Response to teaching Verbalize understanding WC - Visit Discharge Discharge Condition Stable Stable Stable Ambulatory Status Wheelchair Wheelchair Wheelchair Transportation Private Auto Private Auto Private Auto Accompanied by caregiver Medication Reconcilliation completed & Yes No provided to patient/care provider Clinical Summary of Care Provided Yes Notes: healed, discharged from clinic No debridement was completed today - All of the patient's ulcerations are healed and epithelialized. 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 She is a resident of a correction. She had developed pressure ulcerations of the left lateral ankle, right heel, and sacral region within the several weeks prior to presentation. These appeared to be stage III pressure ulcerations. It is noted that the patient sleeps on a regular mattress. She is not very mobile, and spends a great deal of time lying in bed. Her appetite is not known to be good. She suffers from multiple medical problems, which are listed above. The ulcer on the left lateral malleolus and the sacrum appeared to be completely healed at previous visits. They remain healed. The right posterior heel ulceration is now healed and epithelialized. Plan: All 3 ulcerations for which the patient initially presented are now healed and epithelialized. The patient is to be discharged. She will follow-up henceforth on an as-needed basis. Offloading measures have been recommended to continue, to prevent the recurrence of pressure ulcerations in the future. The patient is not a smoker. Influenza vaccine was not administered today. Patient stands 5 feet 6 inches tall. She weighs 123 pounds. Her BMI is 19.9, which is normal. Total time: 21 minutes.
== END 2021-01-20 10:19 | disposition home or self-care (01) ==
LOC: WC 10:00
PROVIDERS: Visit Provider Surgery
DX: L89.613 Pressure ulcer of right heel, stage 3 (principal); L89.143 Pressure ulcer of left lower back, stage 3; L89.153 Pressure ulcer of sacral region, stage 3; F79 Unspecified intellectual disabilities; K21.9 Gastro-esophageal reflux disease without esophagitis; I10 Essential (primary) hypertension; K59.09 Other constipation; G21.19 Other drug induced secondary parkinsonism; E03.9 Hypothyroidism, unspecified; Z86.14 Personal history of Methicillin resistant Staphylococcus aureus infection; Z79.899 Other long term (current) drug therapy
CPT/HCPCS: 11042; 99213; G0463